=== PATIENT | female | born 1960 | race Two or more races ===

== ENCOUNTER 2020-10-30 12:41 | Outpatient (REF) | payer OTHER, SELFPAY ==
--- NOTE | ~2020-10-30 | MM_ITS ---
EXAMINATION: MM SCREENING DIGITAL BREAST TOMOSYNTHESIS, BILATERAL CLINICAL INFORMATION: Screening. Asymptomatic. The lifetime risk of breast cancer based on the Tyrer-Cuzick Model is 4.6%. COMPARISON: Mammography: March 29, 2019 and studies dating back to November 19, 2011 TECHNIQUE: Digital breast tomosynthesis is performed in both the craniocaudal and mediolateral oblique views along with computer-aided detection (CAD). Synthesized 2D images are generated from the tomosynthesis. FINDINGS: There are scattered areas of fibroglandular density (ACR BI-RADS breast composition Category b). There are no significant masses, abnormal calcifications, or other abnormalities. Intramammary lymph nodes again seen. MM/MM tomosynthesis screening BI IMPRESSION: There are no significant changes from prior study. ASSESSMENT: BI-RADS 1: Negative RECOMMENDATION: Routine annual mammography screening. This patient's information was entered into a reminder system with a target due date for their next mammogram.
== END 2020-10-30 12:42 | disposition home or self-care (01) ==
LOC: HO.MAMMO 12:41
PROVIDERS: Visit Provider Internal Medicine
DX: Z12.31 Encounter for screening mammogram for malignant neoplasm of breast (principal)
CPT/HCPCS: 77063; 77067

== ENCOUNTER 2021-02-24 08:13 | Outpatient (REF) | payer OTHER, SELFPAY ==
[2021-02-24 08:44] LABS: MANUAL DIFF FLAG NO
[2021-02-24 09:04] LABS: Basophils Percent Auto 0.5 % (0-2); Eosinophils Absolute Auto 0.1 X10*3/uL (0.0-0.4); Eosinophils Percent Auto 2.2 % (0-4); Hematocrit 39.6 % (37-47); Hemoglobin 12.6 g/dl (12.0-16.0); Imm Gran Abs Auto 0.02 X10*3/uL (0.00-0.03); Imm Gran Pct Auto 0.3 % (0.0-0.4); Lymphocytes Absolute Auto 2.6 X10*3/uL (1.2-4.9); Lymphocytes Percent Auto 40.6 % (20-40); Mean Corpuscular HGB Conc 31.8 g/dl (31.0-35.0); Mean Corpuscular Hemoglobin 28.2 pg (27.0-33.0); Mean Corpuscular Volume 88.6 fL (80-98); Mean Platelet Volume 10.7 fL (9.4-12.3); Monocytes Absolute Auto 0.5 X10*3/uL (0.1-1.2); Monocytes Percent Auto 7.3 % (2-11); Neutrophils Absolute Auto 3.1 X10*3/uL (2.0-8.3); Neutrophils Percent Auto 49.1 % (45-73); Platelet Count 268 X10*3/uL (160-400); Red Blood Count 4.47 X10*6/uL (4.20-5.50); Red Cell Distribution Width 12.9 % (11.0-16.0); White Blood Count 6.4 X10*3/uL (4.8-10.8)
[2021-02-24 09:39] LABS: Alanine Aminotransferase 20 U/L (0-31); Albumin Level 4.1 g/dL (3.5-5.0); Alkaline Phosphatase 98 U/L (39-117); Anion Gap 12 (12-20); Aspartate Amino Transferase 23 U/L (5-31); Bilirubin Total 0.5 mg/dL (0.0-1.0); Blood Urea Nitrogen 10 mg/dL (9-16); Calcium 9.5 mg/dL (8.4-10.2); Carbon Dioxide 31 mmol/L (22-29); Chloride 106 mmol/L (96-108); Cholesterol 161 mg/dL; Estimated Glomerular Filt Rate > 60; Glucose Fasting 119 mg/dL (60-99); HDL Cholesterol 55 mg/dL; LDL Cholesterol Calculated 76 mg/dl; Potassium 4.1 mmol/L (3.3-5.1); Sodium 145 mmol/L (135-145); Total Protein 6.9 g/dL (6.5-8.0); Triglycerides 153 mg/dL
[2021-03-02 13:41] LABS: Vitamin D 25-OH, D2 <4 ng/mL; Vitamin D 25-OH, D3 37 ng/mL; Vitamin D 25-OH, Total 37 ng/mL (30-100)
== END 2021-02-24 08:14 | disposition home or self-care (01) ==
LOC: HO.LAB 08:13
PROVIDERS: PCP Internal Medicine; Visit Provider Internal Medicine
DX: E55.9 Vitamin D deficiency, unspecified (principal); D64.9 Anemia, unspecified; E66.9 Obesity, unspecified; E78.5 Hyperlipidemia, unspecified; I10 Essential (primary) hypertension
CPT/HCPCS: 36415; 80053; 80061; 82306; 84443; 85025

== ENCOUNTER 2021-04-23 12:28 | Outpatient (REF) | payer OTHER, SELFPAY ==
--- NOTE | ~2021-04-23 | MR_ITS ---
EXAMINATION: MR BRAIN WITHOUT CONTRAST CLINICAL INFORMATION: New persistent headache. COMPARISON: Brain MRI 07/14/2017. TECHNIQUE: Multiplanar, multisequence imaging of the brain was performed without intravenous contrast. FINDINGS: There is no acute infarction, mass, hemorrhage, or extra-axial collection. The ventricles, sulci, and basilar cisterns are normal in size and configuration. Mild patchy foci of T2/FLAIR hyperintensity are seen in the bilateral cerebral white matter, a nonspecific finding which is similar compared with 2018. The cerebellar tonsils are normally positioned above the foramen magnum. The flow voids of the major intracranial arteries appear intact. There is layering fluid within the left maxillary sinus and mild to moderate ethmoid, left frontal, and sphenoid sinus mucosal thickening. Mastoid air cells are clear. The orbital contents appear normal with bilateral lens replacements noted. MR/MR head/brain wo con IMPRESSION: No acute intracranial abnormality identified. No mass is seen. No significant changes compared with 2018. Paranasal sinus mucosal thickening with layering fluid could represent acute sinusitis in the appropriate clinical setting.
== END 2021-04-23 12:29 | disposition home or self-care (01) ==
LOC: HO.MRI 12:28
PROVIDERS: PCP Internal Medicine; Visit Provider Internal Medicine
DX: G44.52 New daily persistent headache (NDPH) (principal)
CPT/HCPCS: 70551

== ENCOUNTER 2021-11-09 10:02 | Outpatient (REF) | payer OTHER, SELFPAY ==
[2021-11-09 11:48] LABS: Alanine Aminotransferase 18 U/L (0-31); Albumin Level 4.1 g/dL (3.5-5.0); Alkaline Phosphatase 228 U/L (39-117); Anion Gap 15 (12-20); Aspartate Amino Transferase 26 U/L (5-31); Bilirubin Total 0.6 mg/dL (0.0-1.0); Blood Urea Nitrogen 23 mg/dL (9-16); Calcium 9.3 mg/dL (8.4-10.2); Carbon Dioxide 29 mmol/L (22-29); Chloride 100 mmol/L (96-108); Cholesterol 168 mg/dL; Estimated Glomerular Filt Rate > 60; Glucose Fasting 92 mg/dL (60-99); HDL Cholesterol 53 mg/dL; LDL Cholesterol Calculated 92 mg/dl; Potassium 4.6 mmol/L (3.3-5.1); Sodium 139 mmol/L (135-145); Total Protein 6.8 g/dL (6.5-8.0); Triglycerides 116 mg/dL
[2021-11-09 12:58] LABS: Creatinine Urine 26.62 mg/dL; Microalbumin Urine < 5.0 mg/L
[2021-11-13 15:02] LABS: Vitamin D 25-OH, D2 <4 ng/mL; Vitamin D 25-OH, D3 20 ng/mL; Vitamin D 25-OH, Total 20 ng/mL (30-100)
== END 2021-11-09 10:03 | disposition home or self-care (01) ==
LOC: HO.LAB 10:02
PROVIDERS: PCP Internal Medicine; Visit Provider Internal Medicine
DX: E55.9 Vitamin D deficiency, unspecified (principal); E11.9 Type 2 diabetes mellitus without complications; E78.5 Hyperlipidemia, unspecified
CPT/HCPCS: 36415; 80053; 80061; 82043; 82306

== ENCOUNTER 2022-02-18 10:28 | Outpatient (REF) | payer OTHER, SELFPAY ==
--- NOTE | ~2022-02-18 | MM_ITS ---
EXAMINATION: MM SCREENING DIGITAL BREAST TOMOSYNTHESIS, BILATERAL CLINICAL INFORMATION: Screening. Asymptomatic. The lifetime risk of breast cancer based on the Tyrer-Cuzick Model is 4%. COMPARISON: Mammography: 10/30/2020, 03/29/2019 TECHNIQUE: Digital breast tomosynthesis is performed in both the craniocaudal and mediolateral oblique views along with computer-aided detection (CAD). Synthesized 2D images are generated from the tomosynthesis. FINDINGS: There are scattered areas of fibroglandular density (ACR BI-RADS breast composition Category b). Parenchymal pattern is similar to the prior studies. There is no interval mass or developing density. No architectural abnormality. Right breast again shows incidental low right axillary tail node and left breast has a probable intramammary nodes central lower breast stable since 2019. There are no abnormal calcifications. The axilla and skin contours are unremarkable. MM/MM tomosynthesis screening BI IMPRESSION: No significant changes from prior studies. ASSESSMENT: BI-RADS 2: Benign RECOMMENDATION: Routine annual mammography screening. This patient's information was entered into a reminder system with a target due date for their next mammogram.
== END 2022-02-18 10:29 | disposition home or self-care (01) ==
LOC: HO.MAMMO 10:28
PROVIDERS: PCP Internal Medicine; Visit Provider Internal Medicine
DX: Z12.31 Encounter for screening mammogram for malignant neoplasm of breast (principal)
CPT/HCPCS: 77063; 77067

== ENCOUNTER 2023-01-06 12:40 | Outpatient (AMB) | payer OTHER, SELFPAY ==
[2023-01-06 12:58] VITALS: BP 102/68; PULSE 78; O2SAT 96; BMI 33.1
--- NOTE | 2023-01-06 13:32 | MHC.PC.OV ---
Vital Signs 01/06/23 12:58 Height 5 ft 2 in Weight 181 lb 1 oz BMI 33.1 BP 102/68 Blood Pressure Location Lt brachial Position Sitting Pulse 78 Pulse Source Pulse Oximeter Pulse Oximetry (%) 96 Oxygen Delivery Method Room Air Intake Visit Reasons: headaches due to a fall back 12/04 Intake Note: Pt is here for persistent headaches due to a fall back in 12/04/22. 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: No Accompanied by: Self / Same As Patient Allergies gabapentin Allergy (Intermediate, Verified 01/06/23 14:01) syncope metformin Allergy (Intermediate, Verified 01/06/23 14:01) diarrhea, headache, vomiting morphine [MORPHINE] Allergy (Intermediate, Verified 01/06/23 14:01) ITCH, pruritus lactose [Lactose] Adverse Reaction (Intermediate, Verified 01/06/23 14:01) GAS,DIARRHEA Environmental Allergy (Intermediate, Uncoded 01/06/23 14:01) SNEEZING, ITCY EYES Condoms Latex Lubricated Allergy (Mild, Uncoded 01/06/23 14:01) rash Medication List - Last Reconciled 01/06/23 by Porsche Muro MD albuterol sulfate 2.5 mg (3 mL) inhalation Q6H PRN 30 days atorvastatin 80 mg PO BEDTIME 90 days cholecalciferol (vitamin D3) 25 mcg PO DAILY 90 days clonazepam 0.5 mg PO DAILY PRN diphenhydramine HCl (Benadryl Allergy) 25 mg PO BID PRN epinephrine (EpiPen) 0.3 mg (0.3 mL) IM Q4H PRN 30 days fluticasone propionate 50 mcg/actuation 1 spray intranasal DAILY 30 days hydrochlorothiazide 25 mg PO DAILY 90 days ketotifen fumarate 0.025%(0.035%) (Eye Itch Relief) 1 drp ophthalmic (eye) BID 7 days lisinopril 40 mg PO DAILY 90 days meclizine 25 mg PO DAILY PRN 30 days montelukast 10 mg PO DAILY 90 days nebulizers (AeroEclipse II Nebulizer) As directed omega 2-fml-ued-fish oil 1,000 mg (120 mg-180 mg) (Fish Oil) 1 cap PO DAILY omeprazole 20 mg PO DAILY 90 days Shower Chair As directed Ventolin HFA 90 mcg/actuation (albuterol sulfate) 2 puffs PO Q6H PRN NS ziprasidone HCl 20 mg PO BID Tobacco use date assessed: 05/27/22 Dental Screening Dental Screen Date: 01/06/23 Did you have a dental visit in the last 12 months?: No Did you have a dental problem in the last 6 months where you did not have access to dental care?: No Was dental information given to patient?: Patient has dentist HPI HPI Comments History of Present Illness Details This is a 62-year-old female with hypertension and dyslipidemia that comes today after head injury that happened about a month ago when she was in a staircase and she sleep and fall backwards hitting her head, neck, thoracic and lumbar spine. She had more pain the 1st week but still hurts. Blood pressure stable. Lipid panel was ordered. PFSH Medical History Depression with anxiety Dyslipidemia Essential hypertension Impaired glucose tolerance Insomnia Mild asthma New daily persistent headache Obese Smoker Surgical History H/O cataract extraction History of History of colon cancer History of left knee surgery History of tubal ligation Family History Mother Hypertension Father Hypertension Brother Colon cancer Family/Other Substance use disorder Mental health disorder Social History Housing: Apartment Alcohol intake: current Alcohol intake frequency: a few times a month Alcohol type: beer Patient Tobacco Use Status: Current someday Tobacco user Tobacco use type: Cigarette Cigarettes Per Day: 2 e-Cigarette/Vaping Use: Never Used Second Hand Smoke Exposure: No service: No Current occupational status: disabled Current occupational exposures/hazards: No Cognitive needs: No Hearing needs: No Vision needs: Yes Questionnaire Thrive Questionnaire Date Thrive assessed: 05/27/22 FRANCISCO-7 AMB Questionnaire FRANCISCO-7 Date FRANCISCO - 7 assessed: 05/27/22 Source: Developed by Drs. Jj Smart, Wendi Rivera, Demian Gallego and colleagues, with an educational keila from [employer] Review of Systems Const All systems reviewed & are unremarkable except as noted in HPI and below Reports headache(s) Eyes Reports no additional complaints, Denies change in vision and Denies other visual disturbances ENT Reports headache(s) Card Denies chest pain at rest, Denies chest pain with activity, Denies edema, Denies irregular heart rhythm, Denies claudication, Denies dyspnea, Denies dyspnea on exertion, Denies orthopnea, Denies paroxysmal nocturnal dyspnea and Denies slow heart rate Resp Denies cough, Denies dyspnea and Denies dyspnea on exertion GI Denies abdominal pain, Denies change in bowel habits, Denies excessive flatus, Denies nausea and Denies vomiting Denies urinary incontinence, Denies urinary hesitancy and Denies urinary urgency Musc Denies abnormal gait, Reports back pain, Denies atrophy, Denies deformity, Reports arthralgias and Denies limited range of motion Skin/Breast Denies bleeding lesions, Denies changing lesions and Denies rash Neuro Denies abnormal gait, Reports headache(s) and Denies lack of coordination Physical exam (Primary Care) Vital Signs: Last Vital Signs Pulse 78 01/06/23 12:58 BP 102/68 01/06/23 12:58 Pulse Ox 96 01/06/23 12:58 Oxygen Delivery Method Room Air 01/06/23 12:58 BMI result Body Mass Index 33.1 Tobacco/Smoking Status: Tobacco use Status Tobacco use date assessed 05/27/22 01/06/23 13:33 Patient Tobacco Use Status Current someday Tobacco 01/06/23 13:33 Tobacco use type Cigarette 01/06/23 13:33 e-Cigarette/Vaping Use Never Used 01/06/23 13:33 Thrive Assessment: Date of Thrive Assessment Date Thrive assessed 05/27/22 01/06/23 13:33 Eyes General: appearance normal, both eyes and all related structures Eyelids: Yes eyelids normal Conjunctivae: conjunctivae normal Neck Neck: Yes normal visual inspection and Yes supple Resp Effort & Inspection: normal respiratory effort Auscultation: clear to auscultation bilaterally Cardio Jugular venous distension: no JVD Rate: regular rate Rhythm: regular rhythm Heart sounds: S1 normal heart sound present and S2 normal heart sound present Extrem General: Yes full ROM Assessment and Plan Assessment & Plan (1) Head injury: Code(s): S09.90XA - Unspecified injury of head, initial encounter Plan: MRI of the head ordered. (2) Thoracic spine pain: Code(s): M54.6 - Pain in thoracic spine Plan: X-ray ordered (3) Lumbar pain: Code(s): M54.50 - Low back pain, unspecified Plan: X-ray ordered. (4) Neck pain: Code(s): M54.2 - Cervicalgia Plan: X-ray ordered. (5) Essential hypertension: Code(s): I10 - Essential (primary) hypertension Plan: Continue hydrochlorothiazide. Blood pressure goal is equal or less than 130/80. (6) Dyslipidemia: Code(s): E78.5 - Hyperlipidemia, unspecified Plan: Continue statins. Repeat lipid panel. Orders: Orders MR head/brain wo con Today S09.90XA - Unspecified injury of head, initial encounter XR cervical spine 2V Today M54.2 - Cervicalgia XR lumbar spine 2-3V Today M54.50 - Low back pain, unspecified XR thoracic spine 2V Today M54.6 - Pain in thoracic spine Comprehensive [place]. Panel Fast Today I10 - Essential (primary) hypertension Lipid Panel Today E78.5 - Hyperlipidemia, unspecified, I10 - Essential (primary) hypertension Vitamin D 25-OH Total Today E55.9 - Vitamin D deficiency, unspecified Coding Level of Care Code Est Pt Level 4 (51642) Diagnoses Head injury S09.90XA Thoracic spine pain M54.6 Lumbar pain M54.50 Neck pain M54.2 Essential hypertension I10 Dyslipidemia E78.5 Time Spent (min) 23
== END 2023-01-06 14:11 | disposition home or self-care (01) ==
PROVIDERS: PCP Internal Medicine; Visit Provider Internal Medicine
DX: S09.90XA Unspecified injury of head, initial encounter (principal); M54.6 Pain in thoracic spine; M54.50 Low back pain, unspecified; I10 Essential (primary) hypertension; M54.2 Cervicalgia; E78.5 Hyperlipidemia, unspecified
CPT/HCPCS: 99214

== ENCOUNTER 2023-01-26 10:39 | Outpatient (REF) | payer OTHER, SELFPAY ==
--- NOTE | ~2023-01-26 | XR_ITS ---
EXAMINATION: CERVICAL, THORACIC AND LUMBAR SPINE. CLINICAL INDICATION: Pain in thoracic spine. COMPARISON: Lumbar spine 12/19/2019. TECHNIQUE: Cervical spine 5 views, thoracic spine 2 views and lumbar spine 3 views. FINDINGS: CERVICAL SPINE: The there is mild straightening of cervical lordosis. There is loss of C5-C6 disc height with ventral and posterior spondylosis. Rest the disc heights are preserved. The vertebral heights and alignment are normal. The craniovertebral junction and the C1-C2 alignment are normal. There is no visible acute fracture, dislocation or subluxation. DORSAL SPINE: There is maintained thoracic kyphosis the vertebral heights, alignment and disc heights are normal. There is mild ventral spondylosis of the lower dorsal spine. The paravertebral soft tissues are normal. LUMBAR SPINE: There is normal lumbar lordosis. The vertebral heights, alignment and disc heights are normal. There is no visible acute fracture, dislocation or lytic process. There is mild ventral spondylosis throughout the dorsal spine. The SI joints are symmetrical and normal. XR/XR cervical spine 2V IMPRESSION: 1. Degenerative disc changes C5-C6 disc level with ventral and posterior spondylosis. No visible acute fracture, dislocation or subluxation seen in the cervical spine. 2. Mild ventral spondylosis in the lower dorsal spine. No visible acute fracture, dislocation or lytic process seen. 3. Unremarkable lumbar spine exam except for mild ventral spondylosis lower dorsal spine.
--- NOTE | ~2023-01-26 | XR_ITS ---
EXAMINATION: CERVICAL, THORACIC AND LUMBAR SPINE. CLINICAL INDICATION: Pain in thoracic spine. COMPARISON: Lumbar spine 12/19/2019. TECHNIQUE: Cervical spine 5 views, thoracic spine 2 views and lumbar spine 3 views. FINDINGS: CERVICAL SPINE: The there is mild straightening of cervical lordosis. There is loss of C5-C6 disc height with ventral and posterior spondylosis. Rest the disc heights are preserved. The vertebral heights and alignment are normal. The craniovertebral junction and the C1-C2 alignment are normal. There is no visible acute fracture, dislocation or subluxation. DORSAL SPINE: There is maintained thoracic kyphosis the vertebral heights, alignment and disc heights are normal. There is mild ventral spondylosis of the lower dorsal spine. The paravertebral soft tissues are normal. LUMBAR SPINE: There is normal lumbar lordosis. The vertebral heights, alignment and disc heights are normal. There is no visible acute fracture, dislocation or lytic process. There is mild ventral spondylosis throughout the dorsal spine. The SI joints are symmetrical and normal. XR/XR thoracic spine 2V IMPRESSION: 1. Degenerative disc changes C5-C6 disc level with ventral and posterior spondylosis. No visible acute fracture, dislocation or subluxation seen in the cervical spine. 2. Mild ventral spondylosis in the lower dorsal spine. No visible acute fracture, dislocation or lytic process seen. 3. Unremarkable lumbar spine exam except for mild ventral spondylosis lower dorsal spine.
--- NOTE | ~2023-01-26 | XR_ITS ---
EXAMINATION: CERVICAL, THORACIC AND LUMBAR SPINE. CLINICAL INDICATION: Pain in thoracic spine. COMPARISON: Lumbar spine 12/19/2019. TECHNIQUE: Cervical spine 5 views, thoracic spine 2 views and lumbar spine 3 views. FINDINGS: CERVICAL SPINE: The there is mild straightening of cervical lordosis. There is loss of C5-C6 disc height with ventral and posterior spondylosis. Rest the disc heights are preserved. The vertebral heights and alignment are normal. The craniovertebral junction and the C1-C2 alignment are normal. There is no visible acute fracture, dislocation or subluxation. DORSAL SPINE: There is maintained thoracic kyphosis the vertebral heights, alignment and disc heights are normal. There is mild ventral spondylosis of the lower dorsal spine. The paravertebral soft tissues are normal. LUMBAR SPINE: There is normal lumbar lordosis. The vertebral heights, alignment and disc heights are normal. There is no visible acute fracture, dislocation or lytic process. There is mild ventral spondylosis throughout the dorsal spine. The SI joints are symmetrical and normal. XR/XR lumbar spine 2-3V IMPRESSION: 1. Degenerative disc changes C5-C6 disc level with ventral and posterior spondylosis. No visible acute fracture, dislocation or subluxation seen in the cervical spine. 2. Mild ventral spondylosis in the lower dorsal spine. No visible acute fracture, dislocation or lytic process seen. 3. Unremarkable lumbar spine exam except for mild ventral spondylosis lower dorsal spine.
[2023-01-26 12:55] LABS: Alanine Aminotransferase 13 U/L (0-31); Albumin Level 4.2 g/dL (3.5-5.0); Alkaline Phosphatase 99 U/L (39-117); Anion Gap 10 (12-20); Aspartate Amino Transferase 24 U/L (5-31); Bilirubin Total 0.6 mg/dL (0.0-1.0); Blood Urea Nitrogen 11 mg/dL (9-16); Calcium 9.7 mg/dL (8.4-10.2); Carbon Dioxide 33 mmol/L (22-29); Chloride 105 mmol/L (96-108); Cholesterol 185 mg/dL (<200); Estimated Glomerular Filt Rate > 60; Glucose Fasting 108 mg/dL (60-99); HDL Cholesterol 62 mg/dL (>40); LDL Cholesterol Calculated 92 mg/dL (<100); Potassium 4.3 mmol/L (3.3-5.1); Sodium 144 mmol/L (135-145); Total Protein 7.3 g/dL (6.5-8.0); Triglycerides 155 mg/dL (<150)
[2023-01-26 13:11] LABS: Vitamin D 25-OH Total 41.3 ng/mL (>30)
== END 2023-01-26 10:40 | disposition home or self-care (01) ==
LOC: HO.XRAY 10:39
PROVIDERS: PCP Internal Medicine; Visit Provider Internal Medicine
DX: M54.6 Pain in thoracic spine (principal); M54.2 Cervicalgia; M54.50 Low back pain, unspecified; E55.9 Vitamin D deficiency, unspecified; I10 Essential (primary) hypertension; E78.5 Hyperlipidemia, unspecified
CPT/HCPCS: 36415; 72040; 72070; 72100; 80053; 80061; 82306

== ENCOUNTER 2023-02-22 09:17 | Outpatient (AMB) | payer OTHER, SELFPAY ==
[2023-02-22 09:19] VITALS: BP 110/70; BMI 33.1
--- NOTE | 2023-02-22 09:19 | MHC.OFFVIS ---
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[employer] Language: Favor Maker Name: Saranya EVANGELISTA Information Interpreted: non-clinical & clinical Accompanied by: Self / Same As Patient Allergies gabapentin Allergy (Intermediate, Verified 02/22/23 09:27) syncope metformin Allergy (Intermediate, Verified 02/22/23 09:27) diarrhea, headache, vomiting morphine [MORPHINE] Allergy (Intermediate, Verified 02/22/23 09:27) ITCH, pruritus lactose [Lactose] Adverse Reaction (Intermediate, Verified 02/22/23:) GAS,DIARRHEA Environmental Allergy (Intermediate, Uncoded 02/22/23:27) SNEEZING, ITCY EYES Condoms Latex Lubricated Allergy (Mild, Uncoded 02/22/23 09:) rash Post menopausal: Yes HPI HPI Comments History of Present Illness Details Presenting complaining of suprapubic/pelvic pressure associated with vulvovaginal irritation and urinary dysuria co no vaginal bleeding, no vaginal discharge or odor. Last co testing was in 2015 was negative Last mammogram was BI-RADS 2 in 02/11, the patient is scheduled for another screen mammogram in few weeks Last colonoscopy was in 2016, the recommendation was to repeat in 5 years [facility] Medical History New daily persistent headache Impaired glucose tolerance Insomnia Depression with anxiety Mild asthma Smoker Dyslipidemia Obese Essential hypertension Surgical History H/O cataract extraction History of left knee surgery History of tubal ligation History of colon cancer History of Family History Mother Hypertension Father Hypertension Brother Colon cancer Family/Other Substance use disorder Mental health disorder Social History Housing: Apartment Alcohol intake: current Alcohol intake frequency: a few times a month Alcohol type: beer Patient Tobacco Use Status: Current someday Tobacco user Tobacco use type: Cigarette Cigarettes Per Day: 2 e-Cigarette/Vaping Use: Never Used Second Hand Smoke Exposure: No service: No Current occupational status: disabled Current occupational exposures/hazards: No Cognitive needs: No Hearing needs: No Vision needs: Yes Review of Systems Const All systems reviewed & are unremarkable except as noted in HPI and below Card Reports as per HPI Resp Reports as per HPI GI Reports as per HPI and Reports no additional complaints Reports as per HPI Physical Exam Vital Signs: Last Vital Signs BP 110/70 02/22/23 09:19 BMI result Body Mass Index 33.1 Const General: cooperative, healthy appearing and comfortable Chest Chest palpation & inspection: normal inspection of the chest and normal palpation of entire chest wall Breast/axilla inspection: normal inspection of the breasts and normal inspection of the axillae Breast/axilla palpation: normal palpation of the breasts, normal palpation of the axillae and no axillary lymphadenopathy Resp Effort & Inspection: normal respiratory effort Auscultation: clear to auscultation bilaterally Percussion: percussion normal Cardio Palpation: normal PMI Rate: regular rate Rhythm: regular rhythm Heart sounds: no murmurs and no rubs Peripheral pulses: Peripheral pulses 2+ throughout GI Inspection: Yes normal to inspection Palpation (GI): Soft to palpation, nontender, no guarding, not rigid and No hepatosplenomegaly present Percussion: Yes normal to percussion Auscultation: normal bowel sounds Rectal Exam - Female: deferred General: Yes bladder normal to palpation External Female Exam: No lesion Speculum Exam - Vagina: normal appearance of the vagina, normal palpation, normal vaginal discharge and not erythematous Speculum Exam - Cervix: normal appearance of the cervix and normal palpation Bimanual exam- vagina & uterus: normal bimanual exam, normal palpation, uterine size normal, bladder normal to palpation, consistency normal and normal palpation Bimanual Exam- Adnexa, other: normal adnexae, no masses and no tenderness Results AMB Urinalysis Dipstick UR Leukocytes Negative Last Edit by Saranya Kramer CMA on 02/22/23 09:41 UR Nitrite Negative Last Edit by Saranya Kramer CMA on 02/22/23 09:41 UR Urobilinogen Normal Last Edit by Saranya Kramer CMA on 02/22/23 09:41 UR Protein Negative Last Edit by Saranya Kramer CMA on 10/03/23 09:41 UR Ph 7.0 Last Edit by Saranya Kramer CMA on 02/22/23 09:41 UR Blood Negative Last Edit by Saranya Kramer CMA on 02/22/23 09:41 UR Specific [place] 1.010 Last Edit by Saranya Kramer CMA on 02/22/23 09:41 UR Ketone Negative Last Edit by Saranya Kramer CMA on 02/22/23 09:41 UR Bilirubin Negative Last Edit by Saranya Kramer CMA on 02/22/23 09:41 UR Glucose Negative Last Edit by Saranya Kramer CMA on 02/22/23 09:41 Assessment & Plan Assessment & Plan (1) Well woman exam: Code(s): Z01.419 - Encounter for gynecological examination (general) (routine) without abnormal findings Plan: Co testing done. Counseled the patient about the recommended dietary allowance of 1200 mg of Calcium & 600 IU of vitamin D. Mammogram scheduled in few. The patient was referred to GI for screening colonoscopy . The patient was instructed to perform monthly self-breast exams and schedule annual exam in a year. All questions answered and the patient verbalized understanding. (2) Pelvic pressure in female: Code(s): R10.2 - Pelvic and perineal pain Plan: Urine dip done in the office was negative, GC/CT and BV panel taken, will order pelvic ultrasound. Instructions given the patient to schedule a 2 week follow-up appointment Orders: Orders AMB Urinalysis Dipstick Today R35.0 - Frequency of micturition US pelvic and transvaginal Today R10.2 - Pelvic and perineal pain Referrals Gastroenterology Referral Z12.11 - Encounter for screening for malignant neoplasm of colon Coding Level of Care Code New Pt Prev Care 40-64y(71993) Diagnoses Well woman exam Z01.419 Pelvic pressure in female R10.2
== END 2023-02-22 09:45 | disposition home or self-care (01) ==
LOC: HO.HWS 09:17
PROVIDERS: PCP Internal Medicine; Visit Provider Obstetrics & Gynecology
DX: Z01.419 Encounter for gynecological examination (general) (routine) without abnormal findings (principal); R10.2 Pelvic and perineal pain; R35.0 Frequency of micturition
CPT/HCPCS: 99386

== ENCOUNTER 2023-02-22 09:17 | Outpatient (REF) | payer OTHER, SELFPAY ==
[2023-02-22 16:56] LABS: CT PCR NOT DETECTED (Not Detect.); NG PCR NOT DETECTED (Not Detect.)
[2023-02-23 13:34] LABS: BV Int Neg Control Negative (Negative); BV Int Pos Control Positive (Positive)
[2023-02-25 03:59] LABS: HPV mRNA E6/E7 rflx Not Detected (Not Detected)
== END 2023-02-22 09:18 | disposition home or self-care (01) ==
LOC: HO.LNP 09:17
PROVIDERS: PCP Internal Medicine; Visit Provider Obstetrics & Gynecology
DX: Z01.419 Encounter for gynecological examination (general) (routine) without abnormal findings (principal); R10.2 Pelvic and perineal pain; Z11.51 Encounter for screening for human papillomavirus (HPV)
CPT/HCPCS: 0353U; 81002; 87480; 87510; 87624; 87660; 88142; 99386

== ENCOUNTER 2023-03-04 10:28 | Outpatient (REF) | payer OTHER, SELFPAY ==
--- NOTE | ~2023-03-04 | MM_ITS ---
EXAMINATION: MM SCREENING DIGITAL BREAST TOMOSYNTHESIS, BILATERAL CLINICAL INFORMATION: Screening. Asymptomatic. COMPARISON: Mammography: This study is compared with prior exams dating back to 2018. TECHNIQUE: Digital breast tomosynthesis is performed in both the craniocaudal and mediolateral oblique views along with computer-aided detection (CAD). Synthesized 2D images are generated from the tomosynthesis. FINDINGS: There are scattered areas of fibroglandular density (ACR BI-RADS breast composition Category b). There is a focal asymmetry in the 9:00 region of the right breast at a middle depth. It warrants additional mammographic and targeted sonographic evaluation. In the left breast, there no are no significant masses, abnormal calcifications, or other abnormalities. MM/MM tomosynthesis screening BI IMPRESSION: Focal asymmetry of the 9:00 region of the right breast warrants additional mammographic and targeted sonographic imaging. No mammographic signs of malignancy left breast. ASSESSMENT: BI-RADS BI-RADS 0 - Incomplete: Needs additional Imaging. RECOMMENDATION: 1. Additional views of the right breast 2. Targeted ultrasound if warranted after review of the additional views. 3. Radiology department staff will contact the patient for additional imaging. Additional Imaging required This examination should not preclude the clinical evaluation of a suspicious palpable abnormality. This patient's information was entered into a reminder system with a target due date for their next mammogram.
== END 2023-03-04 10:29 | disposition home or self-care (01) ==
LOC: HO.MAMMO 10:28
PROVIDERS: PCP Internal Medicine; Visit Provider Internal Medicine
DX: Z12.31 Encounter for screening mammogram for malignant neoplasm of breast (principal)
CPT/HCPCS: 77063; 77067

== ENCOUNTER → 2023-03-04 11:00 | Outpatient (BNV) | payer OTHER, SELFPAY | PROVIDERS: PCP Internal Medicine; Visit Provider Radiology Diagnostic Radiology | DX: Z12.31 Encounter for screening mammogram for malignant neoplasm of breast (principal) | CPT/HCPCS: 77063; 77067 ==

== ENCOUNTER 2023-03-18 11:13 | Outpatient (REF) | payer OTHER, SELFPAY ==
--- NOTE | ~2023-03-18 | MR_ITS ---
EXAMINATION: MR BRAIN WITHOUT CONTRAST CLINICAL INFORMATION: Head injury. COMPARISON: Brain MRI from 04/23/2021. TECHNIQUE: MRI of the brain was obtained using routine sequences without contrast. FINDINGS: No focal restricted diffusion is demonstrated to suggest acute or subacute cerebral ischemia. No evidence of acute or chronic hemorrhagic products on heme-sensitive imaging. Scattered periventricular and deep white matter T2 FLAIR hyperintensities consistent with mild underlying microangiopathy. The ventricles are normal in morphology and size. No abnormal mass effect. No midline shift. Normal appearance of the pituitary gland. Normal positioning of the cerebellar tonsils. Normal arterial and venous vascular flow voids are present. Normal, homogeneous marrow signal. Moderate mucosal thickening of the paranasal sinuses. No signal abnormalities within the mastoids. Bilateral lens extractions. MR/MR head/brain wo con IMPRESSION: 1. No acute intracranial abnormalities. 2. Mild underlying microangiopathy.
== END 2023-03-18 11:14 | disposition home or self-care (01) ==
LOC: HO.MRI 11:13
PROVIDERS: PCP Internal Medicine; Visit Provider Internal Medicine
DX: S09.90XA Unspecified injury of head, initial encounter (principal)
CPT/HCPCS: 70551

== ENCOUNTER 2023-03-23 12:49 | Outpatient (REF) | payer OTHER, SELFPAY ==
--- NOTE | ~2023-03-23 | US_ITS ---
EXAMINATION: US PELVIS COMPLETE US PELVIS ENDOVAGINAL CLINICAL INFORMATION: Pelvic peritoneal pain COMPARISON: None. TECHNIQUE: Transabdominal and transvaginal images of the pelvis were obtained. FINDINGS: UTERUS: Anteverted. Normal size and contour, measuring 8.4 x 3.0 x 4.4 cm (cervix to fundus x AP x transverse). Uniform, homogeneous endometrium measures 0.4 cm in width. Hyperechoic lobulated focus noted along the cervix avascular measuring 1.9 x 1.3 x 1.4. RIGHT OVARY: Normal size and echogenicity measuring 1.9 x 1.4 x 1.2 cm, volume 1.7 mL. Cystic focus noted in the right ovary measuring 4 mm. LEFT OVARY: Normal size and echogenicity measuring 1.6 x 0.8 x 1.5 cm, volume 1.0 mL. FREE FLUID: No pelvic free fluid. Incidental note is made of trabeculated bladder wall suggesting elements of bladder outlet obstruction. US/US pelvic and transvaginal IMPRESSION: 1. Hyperechoic lobulated focus noted along the cervix avascular measuring 1.9 x 1.3 x 1.4 cm. Consider further evaluation with direct visualization/colposcopy. 2. Cystic focus noted in the right ovary measuring 4 mm, not requiring follow-up 3. Incidental note is made of trabeculated bladder wall suggesting elements of bladder outlet obstruction.
== END 2023-03-23 12:50 | disposition home or self-care (01) ==
LOC: HO.US 12:49
PROVIDERS: PCP Internal Medicine; Visit Provider Obstetrics & Gynecology
DX: R10.2 Pelvic and perineal pain (principal)
CPT/HCPCS: 76830; 76856

== ENCOUNTER 2023-04-04 11:20 | Outpatient (AMB) | payer OTHER, SELFPAY ==
--- NOTE | 2023-04-04 11:54 | A.OFFVIS_ITS ---
Intake Vital Signs 04/04/23 11:56 Height 5 ft 2 in Weight 183 lb BMI 33.5 BP 140/84 H Blood Pressure Location Lt brachial Position Sitting Pulse 79 Intake Visit Reasons: Colonoscopy Screening Intake Note: Patient new consult for 4th pre colonoscopy screening. Patient cc: acid reflex, and diarrhea. Denies any other GI issues. Voice Instructor Required: Yes Voice Instructor Name: Sarah [email or web address] Accompanied by: Self / Same As Patient Allergies gabapentin Allergy (Intermediate, Verified 04/04/23 11:54) syncope metformin Allergy (Intermediate, Verified 04/04/23 11:54) diarrhea, headache, vomiting morphine [MORPHINE] Allergy (Intermediate, Verified 04/04/23 11:54) ITCH, pruritus lactose [Lactose] Adverse Reaction (Intermediate, Verified 04/04/23 11:54) GAS,DIARRHEA Environmental Allergy (Intermediate, Uncoded 02/22/23 09:27) SNEEZING, ITCY EYES Condoms Latex Lubricated Allergy (Mild, Uncoded 02/22/23 09:27) rash Medication List - Last Reconciled 04/04/23 by Alexandra Meredith PA-C albuterol sulfate 2.5 mg (3 mL) inhalation Q6H PRN 30 days atorvastatin 80 mg PO BEDTIME 90 days bisacodyl (Dulcolax (bisacodyl)) 20 mg (4 x 5 mg) PO ONCE 1 day cholecalciferol (vitamin D3) 25 mcg PO DAILY 90 days clonazepam 0.5 mg PO DAILY PRN epinephrine (EpiPen) 0.3 mg (0.3 mL) IM Q4H PRN 30 days fluticasone propionate 50 mcg/actuation 1 spray intranasal DAILY 30 days hydrochlorothiazide 25 mg PO DAILY 90 days ketotifen fumarate 0.025%(0.035%) (Eye Itch Relief) 1 drp ophthalmic (eye) BID 7 days lisinopril 40 mg PO DAILY 90 days meclizine 25 mg PO DAILY PRN 30 days montelukast 10 mg PO DAILY 90 days nebulizers (AeroEclipse II Nebulizer) As directed omega 6-wth-[id number]-fish oil 1,000 mg (120 mg-180 mg) (Fish Oil) 1 cap PO DAILY omeprazole 20 mg PO DAILY 90 days polyethylene glycol 3350 (Miralax) 238 grams PO ONCE PRN 1 day Shower Chair As directed Ventolin HFA 90 mcg/actuation (albuterol sulfate) 2 puffs PO Q6H PRN NS ziprasidone HCl 20 mg PO BID HPI HPI Comments History of Present Illness Details A 62 y/o female hx rectal carcinoid tumor-last colonoscopy 2018- multiple polyps Acid reflux - prilosec- She has a normal bowel pattern Good appetite PFSH Medical History New daily persistent headache Impaired glucose tolerance Insomnia Depression with anxiety Mild asthma Smoker Dyslipidemia Obese Essential hypertension Surgical History H/O cataract extraction History of left knee surgery History of tubal ligation History of colon cancer History of Family History Mother Hypertension Father Hypertension Brother Colon cancer Family/Other Substance use disorder Mental health disorder Social History Housing: Apartment Alcohol intake: current Alcohol intake frequency: a few times a month Alcohol type: beer Patient Tobacco Use Status: Current someday Tobacco user Tobacco use type: Cigarette Cigarettes Per Day: 2 e-Cigarette/Vaping Use: Never Used Second Hand Smoke Exposure: No service: No Current occupational status: disabled Current occupational exposures/hazards: No Cognitive needs: No Hearing needs: No Vision needs: Yes Review of Systems Const All systems reviewed & are unremarkable except as noted in HPI and below Denies chills, Denies fever(s) and Denies weight loss Card Denies chest pain GI Denies abdominal pain, Denies hematochezia, Denies change in bowel habits, Reports heartburn, Denies nausea and Denies vomiting Physical Exam Vital Signs: Last Vital Signs Pulse 79 04/04/23 11:56 BP 140/84 H 04/04/23 11:56 BMI result Body Mass Index 33.5 Const General: cooperative, healthy appearing, comfortable and no acute distress Orientation/consciousness: patient oriented x3 Limitations: language barrier Eyes Sclerae: sclerae normal Resp Effort & Inspection: normal respiratory effort and able to speak in complete sentences Auscultation: clear to auscultation bilaterally, no rales, no rhonchi and no wheezes Cardio Rate: regular rate Rhythm: regular rhythm Heart sounds: S1 normal heart sound present and S2 normal heart sound present GI Palpation (GI): Soft to palpation and nontender Auscultation: normal bowel sounds Skin General skin exam: no rashes or lesions noted Neuro General: patient oriented x3 Extrem General: Yes full ROM Psych Appearance: grossly normal Mental Status: mental status grossly normal Speech and movement: Normal speech and movement present Affect: normal affect Attitude: cooperative Thought process: Normal thought process present Thought content: Normal thought content present Results Reviewed Results Reviewed: colonoscopy/ path reviewed from 2019- no adenoma- Assessment & Plan Assessment & Plan (1) History of benign carcinoid tumor: Comment: rectal carcinoid- 2009 Code(s): Z86.012 - Personal history of benign carcinoid tumor (2) Acid reflux: Comment: Dietary modification attempt Code(s): K21.9 - Gastro-esophageal reflux disease without esophagitis Plan: cont.ppi avoid culprits EGD (3) History of colon polyps: Comment: Colonoscopy, discussed procedure, rare risks, need for escorted due to anesthesia Code(s): Z86.010 - Personal history of colonic polyps Plan Esteban- EGD/ colon Hx carcinoid- rectal MG prep 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 238 grams PO ONCE PRN 238 grams 0RF laxative effect 1 day bisacodyl (Dulcolax (bisacodyl)) Day before procedure, prep day Take 4 tablets by mouth upon awakening followed by large glass of water 20 mg (4 x 5 mg) PO ONCE 4 tabs 0RF colonoscopy prep 1 day Z12.11 - Encounter for screening for malignant neoplasm of colon Patient Instructions: EGD/ colon- Dr. Mcmanus- MG- Needs platen drier operator Reflux precautions reviewed Avoid culprits Continue PPI Encouraged to call questions or concerns Appreciate the opportunity assist in care the Coding Level of Care Code New Pt Level 3 (39602) Diagnoses History of benign carcinoid tumor Z86.012 Acid reflux K21.9 History of colon polyps Z86.010 Time Spent (min) 30
[2023-04-04 11:56] VITALS: BP 140/84; PULSE 79; BMI 33.5
== END 2023-04-04 13:44 | disposition home or self-care (01) ==
PROVIDERS: PCP Internal Medicine; Visit Provider Physician Assistant
DX: Z86.012 Personal history of benign carcinoid tumor (principal); K21.9 Gastro-esophageal reflux disease without esophagitis; Z86.010 Personal history of colon polyps
CPT/HCPCS: 99203

== ENCOUNTER → 2023-04-04 11:20 | Outpatient (BNVA) | payer OTHER, SELFPAY | PROVIDERS: PCP Internal Medicine; Visit Provider Physician Assistant | DX: K21.9 Gastro-esophageal reflux disease without esophagitis (principal); Z86.012 Personal history of benign carcinoid tumor; Z86.010 Personal history of colon polyps | CPT/HCPCS: 99202 ==

== ENCOUNTER 2023-04-06 12:43 | Outpatient (REF) | payer OTHER, SELFPAY ==
--- NOTE | ~2023-04-06 | US_ITS ---
EXAMINATION: MM DIAGNOSTIC DIGITAL BREAST TOMOSYNTHESIS, RIGHT US BREAST LIMITED, RIGHT MAMMOGRAPHY: CLINICAL INFORMATION: Patient seen for evaluation of a right breast focal asymmetry is noted on screening mammography from March 04 2023. COMPARISON: Mammography: This study is compared with prior mammograms dating back to . TECHNIQUE: Digital breast tomosynthesis is performed in both the craniocaudal and mediolateral oblique views along with computer-aided detection (CAD). Synthesized 2D images are generated from the tomosynthesis. CC and MLO spot compression of the right breast and a full lateral view of the right breast was performed. FINDINGS: There are scattered areas of fibroglandular density (ACR BI-RADS breast composition Category b). Additional mammographic imaging of the focal asymmetry in the 7:00 to 9:00 location shows a pliable, ellipsoid structure associated with a single, subcentimeter punctate benign calcification. There are no mammographic signs of malignancy. ULTRASOUND: CLINICAL INFORMATION: Focal asymmetry of the right breast evaluation COMPARISON: None TECHNIQUE: Targeted sonographic evaluation was performed using a high frequency linear transducer. Selected archived documentation. FINDINGS: RIGHT BREAST: Sonography of the 40 8:00 region of the right breast was performed. In the 7:00 location, there is a 3 mm x 2 mm x 1 mm oval cyst with a solitary nonshadowing calcification associated with it. This structure is benign and corresponds to the mammographic finding.. US/US breast RT limited mamm only IMPRESSION: No mammographic signs of malignancy. OVERALL ASSESSMENT: Mammography: BI-RADS 2 - Benign Findings Ultrasound: BI-RADS 2 - Benign Findings RECOMMENDATION: 1 year F/U Results were provided to the patient at time of visit by the technologist. This patient's information was entered into a reminder system with a target due date for their next mammogram.
== END 2023-04-06 12:44 | disposition home or self-care (01) ==
LOC: HO.MAMMO 12:43
PROVIDERS: PCP Internal Medicine; Visit Provider Internal Medicine
DX: N64.89 Other specified disorders of breast (principal)
CPT/HCPCS: 76642; 77061; 77065

== ENCOUNTER → 2023-04-06 13:30 | Outpatient (BNV) | payer OTHER, SELFPAY | PROVIDERS: PCP Internal Medicine; Visit Provider Radiology Diagnostic Radiology | DX: R92.8 Other abnormal and inconclusive findings on diagnostic imaging of breast (principal) | CPT/HCPCS: 76642; 77061; 77065 ==

== ENCOUNTER 2023-04-07 11:32 | Outpatient (REF) | payer OTHER, SELFPAY ==
[2023-04-08 10:13] LABS: CA-125 10 U/mL (<35)
== END 2023-04-07 11:33 | disposition home or self-care (01) ==
LOC: HO.LAB 11:32
PROVIDERS: PCP Internal Medicine; Visit Provider Obstetrics & Gynecology
DX: N83.299 Other ovarian cyst, unspecified side (principal); N88.9 Noninflammatory disorder of cervix uteri, unspecified; R93.41 Abnormal radiologic findings on diagnostic imaging of renal pelvis, ureter, or bladder; R93.5 Abnormal findings on diagnostic imaging of other abdominal regions, including retroperitoneum
CPT/HCPCS: 36415; 86304; 99212

== ENCOUNTER 2023-04-07 11:32 | Outpatient (AMB) | payer OTHER, SELFPAY ==
--- NOTE | 2023-04-07 12:00 | A.OFFVIS_ITS ---
Intake Vital Signs 04/07/23 12:02 Height 5 ft 2 in Weight 182 lb 15.739 oz BMI 33.5 BP 98/62 Intake Visit Reasons: Ultrasound Results Teletypesetter Operator Required: Yes Teletypesetter Operator Language: Electronics Engineering Technologist Name: Saranya EVANGELISTA Information Interpreted: non-clinical & clinical Accompanied by: Self / Same As Patient Allergies gabapentin Allergy (Intermediate, Verified 04/07/23 12:03) syncope metformin Allergy (Intermediate, Verified 04/07/23 12:03) diarrhea, headache, vomiting morphine [MORPHINE] Allergy (Intermediate, Verified 04/07/23 12:03) ITCH, pruritus lactose [Lactose] Adverse Reaction (Intermediate, Verified 04/07/23 12:03) GAS,DIARRHEA Environmental Allergy (Intermediate, Uncoded 04/07/23 12:03) SNEEZING, ITCY EYES Condoms Latex Lubricated Allergy (Mild, Uncoded 04/07/23 12:03) rash Post menopausal: Yes HPI HPI Comments History of Present Illness Details Presenting for ultrasound follow-up. Regarding pelvic pressure. Urine dip done in the office last visit was negative. GC/CT were negative. Pelvic Ultrasound showed the followin. Hyperechoic lobulated focus noted along the cervix avascular measuring 1.9 x 1.3 x 1.4 cm. Consider further evaluation with direct visualization/colposcopy. 2. Cystic focus noted in the right ovar y measuring 4 mm, not requiring follow-up 3. Incidental note is made of trabecula gomez bladder wall suggesting elements of bladder outlet obstruction. PFSH Medical History New daily persistent headache Impaired glucose tolerance Insomnia Depression with anxiety Mild asthma Smoker Dyslipidemia Obese Essential hypertension Surgical History H/O cataract extraction History of left knee surgery History of tubal ligation History of colon cancer History of Family History Mother Hypertension Father Hypertension Brother Colon cancer Family/Other Substance use disorder Mental health disorder Social History Housing: Apartment Alcohol intake: current Alcohol intake frequency: a few times a month Alcohol type: beer Patient Tobacco Use Status: Current someday Tobacco user Tobacco use type: Cigarette Cigarettes Per Day: 2 e-Cigarette/Vaping Use: Never Used Second Hand Smoke Exposure: No service: No Current occupational status: disabled Current occupational exposures/hazards: No Cognitive needs: No Hearing needs: No Vision needs: Yes Review of Systems Const All systems reviewed & are unremarkable except as noted in HPI and below Physical Exam Vital Signs: Last Vital Signs BP 98/62 04/07/23 12:02 BMI result Body Mass Index 33.5 General: Yes no CVA tenderness External Female Exam: normal external appearance and normal appearance of the urethra Speculum Exam - Vagina: normal appearance of the vagina, normal palpation, no lesions and no masses Speculum Exam - Cervix: normal appearance of the cervix, normal palpation, no lesions, no masses and nontender Bimanual exam- vagina & uterus: normal bimanual exam, normal palpation, uterine size normal, normal palpation, uterine shape normal, No Cervical tenderness present and non-tender Bimanual Exam- Adnexa, other: normal adnexae Back/Spine/Pelvis Back: no CVA tenderness Assessment & Plan Assessment & Plan (1) Cervical lesion: Comment: On ultrasound Code(s): N88.9 - Noninflammatory disorder of cervix uteri, unspecified Plan: Discussed with the patient the finding on pelvic exam showing normal cervix and no evidence of abnormality, the patient was reassured, or questions answered, the patient verbalized understanding. (2) Abnormal ultrasound of bladder: Code(s): R93.41 - Abnormal radiologic findings on diagnostic imaging of renal pelvis, ureter, or bladder Plan: Discussed with the patient the finding on ultrasound showing trabeculated bladder wall suggesting elements of bladder outlet obstruction will refer to Urology for further manage (3) Abnormal ultrasound of ovary: Comment: 4 mm focus by ultrasound Code(s): R93.5 - Abnormal findings on diagnostic imaging of other abdominal regions, including retroperitoneum Plan: Discussed with the patient the complex ovarian cyst by ultrasound. Discussed with the patient the Ultrasound findings, the main limitation of transvaginal ultrasonography alone as a diagnostic tool to distinguish benign from malignant masses relates to its lack of specificity and low positive predictive value for cancer. The differential diagnosis discussed with the patient includes the following but not limited to: benign and malignant gynecological and non-gynecological causes. Discussed with the patient that CA 125 is a protein associated with epithelial ovarian malignancies, but also frequently expressed at lower levels by nonmalignant tissue. Elevation of CA 125 levels may occur in nonmalignant gynecologic conditions, and in non-gynecologic cancers, It is most useful in postmenopausal women and in identifying non mucinous epithelial cancer. The CA 125 level is elevated in 80% of patients with epithelial ovarian cancer but in only 50% of patients with stage I disease. The overall sensitivity of CA 125 testing in distinguishing benign from malignant adnexal masses reportedly ranges from 61% to 90%; discussed with the patient the specificity, positive predictive value and negative predictive value. Discussed with the patient options of treatment , in case CA 125 is not el evated, including laparoscopy ovarian cystectomy/oophorectomy vs. expectant management with repeat US in repeating pelvic US in 12 weeks from previous US. If the 4 mm ovarian focus is larger and / or more complex looking, or higher CA 125 will refer to gynecologic Oncology. All pros, cons, risks and benefits of each approach were discussed with the patient including but not limited to a delay in the diagnosis and treatment of ovarian cancer affecting the prognosis; The patient decided to go ahead with expectant management. Instructions given the patient to schedule a 3 months follow-up ultrasound appointment. All questions were answered & the patient verbalized understanding and agreed with the plan. Orders: Orders US pelvic and transvaginal 3 Months N83.299 - Other ovarian cyst, unspecified side CA-125 Today N83.299 - Other ovarian cyst, unspecified side Referrals Urology Referral R93.41 - Abnormal radiologic findings on diagnostic imaging of renal pelvis, ureter, or bladder Coding Level of Care Code Est Pt Level 3 (77818) Diagnoses Cervical lesion N88.9 Abnormal ultrasound of bladder R93.41 Abnormal ultrasound of ovary R93.5
[2023-04-07 12:02] VITALS: BP 98/62; BMI 33.5
== END 2023-04-07 12:52 | disposition home or self-care (01) ==
PROVIDERS: PCP Internal Medicine; Visit Provider Obstetrics & Gynecology
DX: N88.9 Noninflammatory disorder of cervix uteri, unspecified (principal); R93.41 Abnormal radiologic findings on diagnostic imaging of renal pelvis, ureter, or bladder; R93.5 Abnormal findings on diagnostic imaging of other abdominal regions, including retroperitoneum
CPT/HCPCS: 99213

== ENCOUNTER 2023-05-25 12:51 | Outpatient (AMB) | payer OTHER, SELFPAY ==
--- NOTE | 2023-05-25 13:47 | MHC.OFFVIS ---
Intake Intake Visit Reasons: bladder outlet obstruction Intake Note: NEW Patient presents today to established treatment for Bladder Outlet Obstruction: Meds- None Allergies to Antibiotic- No Known Allergies Blood Thinner- None Post Void Residual: 102 mL Zoo Caretaker Required: Yes Zoo Caretaker Language: Danish Accompanied by: Self / Same As Patient Allergies gabapentin Allergy (Intermediate, Verified 05/25/23 14:36) syncope metformin Allergy (Intermediate, Verified 05/25/23 14:36) diarrhea, headache, vomiting morphine [MORPHINE] Allergy (Intermediate, Verified 05/25/23 14:36) ITCH, pruritus lactose [Lactose] Adverse Reaction (Intermediate, Verified 05/25/23 14:36) GAS,DIARRHEA Environmental Allergy (Intermediate, Uncoded 05/25/23 14:36) SNEEZING, ITCY EYES Condoms Latex Lubricated Allergy (Mild, Uncoded 05/25/23 14:36) rash Medication List - Last Reconciled 05/25/23 by Erlinda Taylor MD albuterol sulfate 2.5 mg (3 mL) inhalation Q6H PRN 30 days atorvastatin 80 mg PO BEDTIME 90 days bisacodyl (Dulcolax (bisacodyl)) 20 mg (4 x 5 mg) PO ONCE 1 day cholecalciferol (vitamin D3) 25 mcg PO DAILY 90 days clonazepam 0.5 mg PO DAILY PRN epinephrine (EpiPen) 0.3 mg (0.3 mL) IM Q4H PRN 30 days fluticasone propionate 50 mcg/actuation 1 spray intranasal DAILY 30 days hydrochlorothiazide 25 mg PO DAILY 90 days ketotifen fumarate 0.025%(0.035%) (Eye Itch Relief) 1 drp ophthalmic (eye) BID 7 days lisinopril 40 mg PO DAILY 90 days meclizine 25 mg PO DAILY PRN 30 days montelukast 10 mg PO DAILY 90 days nebulizers (AeroEclipse II Nebulizer) As directed omega 5-yfd-fqu-fish oil 1,000 mg (120 mg-180 mg) (Fish Oil) 1 cap PO DAILY omeprazole 20 mg PO DAILY 90 days polyethylene glycol 3350 (Miralax) 238 grams PO ONCE PRN 1 day Shower Chair As directed Ventolin HFA 90 mcg/actuation (albuterol sulfate) 2 puffs PO Q6H PRN NS ziprasidone HCl 20 mg PO BID HPI HPI Comments History of Present Illness Details Kelli is a 62 year old female who is here for new patient evaluation, she states she had a pelvic US ordered by her YARD COUPLER and was told there were polps in her bladder. Past Medical history -Impaired glucose tolerance, Insomnia, Depression with anxiety, Nicotine dependency, Essential hypertension Surgical history includes but is not limited to H/O cataract extraction, History of left knee surgery, History of tubal ligation History of colon cancer, s/p colon resection, History of The patient complains of intermittent dysuria, denies urinary incontinence. I counselled on nicotine cessation. Bladder scan PVR - 102 mL. I have discussed workup to include evaluation of the upper tracts with renal US and FU cystoscopy evaluation, urine for cytology. Plan:Renal US, urine cyto, fu office cysto PFSH Medical History New daily persistent headache Impaired glucose tolerance Insomnia Depression with anxiety Mild asthma Smoker Dyslipidemia Obese Essential hypertension Surgical History H/O cataract extraction History of left knee surgery History of tubal ligation History of colon cancer History of Family History Mother Hypertension Father Hypertension Brother Colon cancer Family/Other Substance use disorder Mental health disorder Social History Housing: Apartment Alcohol intake: current Alcohol intake frequency: a few times a month Alcohol type: beer Patient Tobacco Use Status: Current someday Tobacco user Tobacco use type: Cigarette Cigarettes Per Day: 2 e-Cigarette/Vaping Use: Never Used Second Hand Smoke Exposure: No service: No Current occupational status: disabled Current occupational exposures/hazards: No Cognitive needs: No Hearing needs: No Vision needs: Yes Review of Systems Const All systems reviewed & are unremarkable except as noted in HPI and below Reports no additional complaints Eyes Reports no additional complaints ENT Reports no additional complaints Card Denies dyspnea Resp Denies cough and Denies dyspnea GI Reports no additional complaints Reports no additional complaints Musc Reports no additional complaints Skin/Breast Denies rash and Denies unusual bruising Neuro Reports no additional complaints Psych Reports no additional complaints Endo Reports no additional complaints Richard/Lymph Reports no additional complaints Aller/Immun Reports no additional complaints Physical Exam Const General: cooperative, healthy appearing and no acute distress Orientation/consciousness: patient oriented x3 HEENT Head: Yes normal to inspection, Yes normocephalic and Yes atraumatic Eyes Conjunctivae: conjunctivae normal Neck Neck: Yes normal visual inspection and Yes trachea midline Chest Chest palpation & inspection: normal inspection of the chest Resp Effort & Inspection: normal respiratory effort Cardio Rate: regular rate GI Inspection: Yes normal to inspection Palpation (GI): Soft to palpation Skin General skin exam: no rashes or lesions noted Neuro General: patient oriented x3 Extrem General: No edema Psych Appearance: grossly normal Office Procedures Post Void Residual Post Residual Void Post Void Residual (PVR): 102 [id number] Void Residual by ultrasound Results AMB Urinalysis, Automated UA Leukoctes 0 Macrina/uL Last Edit by JEAN CARLOS Maria on 05/25/23 14:36 UA Nitrite Negative Last Edit by JEAN CARLOS Maria on 05/25/23 14:36 UA Urobilinogen 0.2 mg/dL Last Edit by JEAN CARLOS Maria on 05/25/23 14:36 UA Protein 6.0 mg/dL Last Edit by JEAN CARLOS Maria on 05/25/23 14:36 UA pH 6.0 Last Edit by JEAN CARLOS Maria on 05/25/23 14:36 UA Blood 0 Leonidas/uL Last Edit by JEAN CARLOS Maria on 05/25/23 14:36 UA Specific [place] 1.015 Last Edit by JEAN CARLOS Maria on 05/25/23 14:36 UA Ketone Negative Last Edit by JEAN CARLOS Maria on 05/25/23 14:36 UA Bilirubin 0 mg/dL Last Edit by JEAN CARLOS Maria on 05/25/23 14:36 UA Glucose 0 mg/dL Last Edit by JEAN CARLOS Maria on 05/25/23 14:36 Results Reviewed Results Reviewed: Laboratory Last Values Urine pH (Auto) 6.0 05/25/23 13:50 Specific [place] (Auto) 1.015 05/25/23 13:50 Urine Protein (Auto) 6.0 mg/dL 05/25/23 13:50 Glucose (UA)(Auto) 0 mg/dL 05/25/23 13:50 Urine Ketones (Auto) Negative 05/25/23 13:50 Urine Blood (Auto) 0 Leonidas/uL 05/25/23 13:50 Urine Nitrite (Auto) Negative 05/25/23 13:50 Urine Bilirubin (Auto) 0 mg/dL 05/25/23 13:50 Urine Urobilinogen (Auto) 0.2 mg/dL 05/25/23 13:50 Leukocyte Esterase (Auto) 0 Macrina/uL 05/25/23 13:50 Date of Service: 03/23/23 EXAMINATION: US PELVIS COMPLETE US PELVIS ENDOVAGINAL CLINICAL INFORMATION: Pelvic peritoneal pain COMPARISON: None. TECHNIQUE: Transabdominal and transvaginal images of the pelvis were obtained. FINDINGS: UTERUS: Anteverted. Normal size and contour, measuring 8.4 x 3.0 x 4.4 cm (cervix to fundus x AP x transverse). Uniform, homogeneous endometrium measures 0.4 cm in width. Hyperechoic lobulated focus noted along the cervix avascular measuring 1.9 x 1.3 x 1.4. RIGHT OVARY: Normal size and echogenicity measuring 1.9 x 1.4 x 1.2 cm, volume 1.7 mL. Cystic focus noted in the right ovary measuring 4 mm. LEFT OVARY: Normal size and echogenicity measuring 1.6 x 0.8 x 1.5 cm, volume 1.0 mL. FREE FLUID: No pelvic free fluid. Incidental note is made of trabeculated bladder wall suggesting elements of bladder outlet obstruction. IMPRESSION: 1. Hyperechoic lobulated focus noted along the cervix avascular measuring 1.9 x 1.3 x 1.4 cm. Consider further evaluation with direct visualization/colposcopy. 2. Cystic focus noted in the right ovary measuring 4 mm, not requiring follow-up 3. Incidental note is made of trabeculated bladder wall suggesting elements of bladder outlet obstruction. Assessment & Plan Assessment & Plan (1) Abnormal finding on ultrasound: Code(s): R93.89 - Abnormal findings on diagnostic imaging of other specified body structures (2) Dysuria: Code(s): R30.0 - Dysuria (3) Bladder wall thickening: Code(s): N32.89 - Other specified disorders of bladder (4) Incomplete bladder emptying: Code(s): R33.9 - Retention of urine, unspecified Plan cysto, urine cytology, renal US Orders: Orders AMB Urinalysis Automated Today Z13.9 - Encounter for screening, unspecified AMB Post Void Residual by ultrasound Today N39.8 - Other specified disorders of urinary system US renal BI Today R30.0 - Dysuria, R93.89 - Abnormal findings on diagnostic imaging of other specified body structures Patient Instructions: The patient had an opportunity to ask questions regarding treatment plan. All questions were answered. Imaging, Laboratory studies and physical exam results were discussed and reviewed in detail. No major barriers to understanding were identified. The patient expressed understanding and agreement with the above treatment plan. The patient is aware they should contact our office by phone for worsening of their current condition or the appearance of new symptoms. Compliance is encouraged with any medications and followup testing that is ordered. It is a privilege to be allowed the opportunity to participate in the urologic care of your patient. If you have any questions or concerns regarding treatment for the above conditions please do not hesitate to contact me. The office telephone contact is [phone]. This note is constructed in part using voice recognition software. While every effort has been made to ensure accuracy gas blender errors may have been included. Yours sincerely, Erlinda Taylor MD Coding Level of Care Code New Pt Level 4 (69749) Diagnoses Abnormal finding on ultrasound R93.89 Dysuria R30.0 Bladder wall thickening N32.89 Incomplete bladder emptying R33.9 CPT Codes Post Residual Void - PVR CPT Code: 94471-Ucqn Void Residual by ultrasound ([id number])
== END 2023-05-25 14:58 | disposition home or self-care (01) ==
PROVIDERS: PCP Internal Medicine; Visit Provider Urology
DX: R93.89 Abnormal findings on diagnostic imaging of other specified body structures (principal); R30.0 Dysuria; N32.89 Other specified disorders of bladder; R33.9 Retention of urine, unspecified; Z13.9 Encounter for screening, unspecified
CPT/HCPCS: 99204

== ENCOUNTER 2023-05-25 12:51 | Outpatient (REF) | payer OTHER, SELFPAY | END 2023-05-25 12:52 | disposition home or self-care (01) | LOC: HO.LNP 12:51 | PROVIDERS: PCP Internal Medicine; Visit Provider Urology | DX: N32.89 Other specified disorders of bladder (principal); R30.0 Dysuria; R33.9 Retention of urine, unspecified; R93.89 Abnormal findings on diagnostic imaging of other specified body structures | CPT/HCPCS: 51798; 81003; 88112; 99202 ==

== ENCOUNTER 2023-06-08 09:21 | Outpatient (AMB) | payer OTHER, SELFPAY ==
[2023-06-08 09:48] VITALS: BP 126/70; BMI 32.7
--- NOTE | 2023-06-08 09:48 | A.OFFPC_ITS ---
Vital Signs 06/08/23 09:48 Height 5 ft 2 in Weight 179 lb BMI 32.7 BP 126/70 Blood Pressure Location Lt brachial Position Sitting Intake Visit Reasons: Annual Exam Intake Note: Patient here for an annual physical exam Special Education Coordinator Required: No Accompanied by: Self / Same As Patient Allergies gabapentin Allergy (Intermediate, Verified 06/08/23 10:17) syncope metformin Allergy (Intermediate, Verified 06/08/23 10:17) diarrhea, headache, vomiting morphine [MORPHINE] Allergy (Intermediate, Verified 06/08/23 10:17) ITCH, pruritus lactose [Lactose] Adverse Reaction (Intermediate, Verified 06/08/23 10:17) GAS,DIARRHEA Environmental Allergy (Intermediate, Uncoded 06/08/23 10:17) SNEEZING, ITCY EYES Condoms Latex Lubricated Allergy (Mild, Uncoded 06/08/23 10:17) rash Medication List - Last Reconciled 06/08/23 by Porsche Muro MD albuterol sulfate 2.5 mg (3 mL) inhalation Q6H PRN 30 days atorvastatin 80 mg PO BEDTIME 90 days bisacodyl (Dulcolax (bisacodyl)) 20 mg (4 x 5 mg) PO ONCE 1 day cholecalciferol (vitamin D3) 25 mcg PO DAILY 90 days clonazepam 0.5 mg PO DAILY PRN epinephrine (EpiPen) 0.3 mg (0.3 mL) IM Q4H PRN 30 days fluticasone propionate 50 mcg/actuation 1 spray intranasal DAILY 30 days hydrochlorothiazide 25 mg PO DAILY 90 days ketotifen fumarate 0.025%(0.035%) (Eye Itch Relief) 1 drp ophthalmic (eye) BID 7 days lisinopril 40 mg PO DAILY 90 days meclizine 25 mg PO DAILY PRN 30 days montelukast 10 mg PO DAILY 90 days nebulizers (AeroEclipse II Nebulizer) As directed omega 5-qyt-waj-fish oil 1,000 mg (120 mg-180 mg) (Fish Oil) 1 cap PO DAILY omeprazole 20 mg PO DAILY 90 days polyethylene glycol 3350 (Miralax) 238 grams PO ONCE PRN 1 day Shower Chair As directed Ventolin HFA 90 mcg/actuation (albuterol sulfate) 2 puffs PO Q6H PRN NS ziprasidone HCl 20 mg PO BID Tobacco use date assessed: 06/08/23 Dental Screening Dental Screen Date: 06/08/23 Did you have a dental visit in the last 12 months?: Yes Did you have a dental problem in the last 6 months where you did not have access to dental care?: No Was dental information given to patient?: Yes HPI HPI Comments History of Present Illness Details This is a 62-year-old female with mild major depression that comes for her physical exam. Depression is follow by Psychiatry and has been stable. Last mammogram was done March 2023. Pap smear done 2022. 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 Colonoscopy will be done July 2023. No chest pain or shortness of breath. Doing well. [facility] Medical History (Updated 06/08/23 @ 10:32 by Porsche Muro MD) New daily persistent headache Impaired glucose tolerance Insomnia Depression with anxiety Mild asthma Smoker Dyslipidemia Obese Essential hypertension Surgical History (Updated 06/08/23 @ 10:21 by Porsche Muro MD) H/O cataract extraction History of left knee surgery History of tubal ligation History of Family History Mother Hypertension Father Hypertension Brother Colon cancer Family/Other Substance use disorder Mental health disorder Social History Housing: Apartment Alcohol intake: current Alcohol intake frequency: a few times a month Alcohol type: beer Patient Tobacco Use Status: Current someday Tobacco user Tobacco use type: Cigarette Cigarettes Per Day: 1 e-Cigarette/Vaping Use: Never Used Second Hand Smoke Exposure: No service: No Current occupational status: disabled Current occupational exposures/hazards: No Cognitive needs: No Hearing needs: No Vision needs: Yes Questionnaire PHQ-9 Over the last 2 weeks, how often have you been bothered by any of the following problems? 1. Little interest or pleasure in doing things: several days 2. Feeling down, depressed, or hopeless: more than half the days 3. Trouble falling or staying asleep, or sleeping too much: several days 4. Feeling tired or having little energy: several days 5. Poor appetite or overeating: several days 6. Feeling bad about yourself - or that you are a failure or have let yourself or your family down: not at all 7. Trouble concentrating on things, such as reading the newspaper or watching television: not at all 8. Moving or speaking so slowly that other people could have noticed. Or the opposite - being so fidgety or restless that you have been moving around a lot more than usual: not at all 9. Thoughts that you would be better off or of hurting yourself in some way: not at all Total score: 6 Depression Screening Interpretation: Positive Depression Screening Follow-up: Existing condition, In treatment and Community Mental Health Worker F/U Depression Screening Done: Yes 77635 - PHQ-9 Billing: Yes Source: Developed by Drs. Jj Smart, Wendi Rivera, Demian Gallego and colleagues, with an educational keila from [employer]. Thrive Questionnaire Date Thrive assessed: 06/08/23 I am a: Patient What is your living situation today?: I have a steady place to live Within the past 12 months, did the food you bought not last and you didn't have the money to get more?: Never true Within the past 12 months, did you worry whether your food would run out before you got money to buy more?: Never true Do you have trouble paying for medicines?: No Do you have trouble getting transportation to medical appointments?: No Do you have trouble paying your heating and electricity bill?: No Do you have trouble taking care of your child, family member or friend?: No Do you have trouble with day-to-day activities such as bathing, preparing meals, shopping, managing finances, etc.?: No Are you currently unemployed and looking for a job?: No Are you interested in more education?: No Please select the resources that you would like help with: None Currently or been in a relationship where the following occur: no concerns reported AUDIT C Alcohol Use Questionnaire (AUDIT-C) 1. How often do you have a drink containing alcohol?: Monthly or less 2. How many drinks containing alcohol do you have on a typical day when you are drinking?: 1 or 2 3. How often do you have six or more drinks on one occasion?: Never Total Score: 1 Score Reviewed/Action Taken: No FRANCISCO-7 AMB Questionnaire FRANCISCO-7 Date FRANCISCO - 7 assessed: 06/08/23 Feeling nervous, anxious, or on edge: 2 = More than half the days Not being able to stop or control worryin = Not at all Worrying too much about different things: 1 = Several days Trouble relaxin = Not at all Being so restless that it is hard to sit still: 0 = Not at all Becoming easily annoyed or irritable: 0 = Not at all Feeling afraid as if something awful might happen: 1 = Several days Total FRANCISCO-7 score (0-4 normal; 5-9 mild; 10-14 moderate; 15-21 severe): 4 Source: Developed by Drs. Jj Smart, Wendi Rivera, Demian Gallego and colleagues, with an educational keila from [employer]. FRANCISCO-7 Assessment Billing FRANCISCO-7 Assessment Tool: FRANCISCO-7 Assessment 49065 Review of Systems Const All systems reviewed & are unremarkable except as noted in HPI and below Eyes Reports no additional complaints, Denies change in vision and Denies other visual disturbances Card Denies chest pain at rest, Denies chest pain with activity, Denies edema, Denies irregular heart rhythm, Denies claudication, Denies dyspnea, Denies dyspnea on exertion, Denies orthopnea, Denies paroxysmal nocturnal dyspnea and Denies slow heart rate Resp Denies cough, Denies dyspnea and Denies dyspnea on exertion GI Denies abdominal pain, Denies change in bowel habits, Denies excessive flatus, Denies nausea and Denies vomiting Denies urinary incontinence, Denies urinary hesitancy and Denies urinary urgency Musc Denies abnormal gait, Denies atrophy, Denies deformity and Denies limited range of motion Skin/Breast Denies bleeding lesions, Denies changing lesions and Denies rash Neuro Denies abnormal gait, Denies behavioral changes, Denies confusion and Denies lack of coordination Psych Denies behavioral changes and Denies confusion Physical exam (Primary Care) Vital Signs: Last Vital Signs BP 126/70 06/08/23 09:48 BMI result Body Mass Index 32.7 Tobacco/Smoking Status: Tobacco use Status Tobacco use date assessed 06/08/23 06/08/23 10:00 Patient Tobacco Use Status Current someday Tobacco 06/08/23 10:00 Tobacco use type Cigarette 06/08/23 10:00 e-Cigarette/Vaping Use Never Used 06/08/23 10:00 PHQ-9: PHQ-9 Score PHQ-9: Total score 6 06/08/23 10:09 Depression Screening Interpretation: Positive Depression Screening Follow-up: Existing condition, In treatment and Community Mental Health Worker F/U Thrive Assessment: Date of Thrive Assessment Date Thrive assessed 06/08/23 06/08/23 10:00 Currently or been in a relationship where the following occur: no concerns reported Const General: No confusion Orientation/consciousness: patient oriented x3 and No confusion HENMT Head: Yes normal to inspection, Yes normocephalic and Yes atraumatic Ears: external ears normal Eyes General: appearance normal, both eyes and all related structures Eyelids: Yes eyelids normal Conjunctivae: conjunctivae normal Neck Neck: Yes normal visual inspection and Yes supple Resp Effort & Inspection: normal respiratory effort Auscultation: clear to auscultation bilaterally Cardio Jugular venous distension: no JVD Rate: regular rate Rhythm: regular rhythm Heart sounds: S1 normal heart sound present and S2 normal heart sound present GI Inspection: Yes normal to inspection Palpation (GI): Soft to palpation and nontender Auscultation: normal bowel sounds Skin General skin exam: no rashes or lesions noted Neuro General: patient oriented x3, no focal motor deficits and No confusion Extrem General: Yes full ROM Psych Appearance: grossly normal Office Procedures Flu Questionnaire Does the patient have a severe egg allergy?: No Immunizations flu vacc [id number] 6mos up(PF) 60 mcg(15 mcgx4)/0.5 mL IM syringe Performing Provider: Porsche Muro MD [facility] Documented (not given) by: JEAN CARLOS Lagunas on 06/08/23 10:10 Reason Not Given: Patient Refused Assessment and Plan Assessment & Plan (1) Encounter for physical examination: Code(s): Z00.00 - Encounter for general adult medical examination without abnormal findings Plan: Repeat in a year. (2) Mild major depression: Code(s): F32.0 - Major depressive disorder, single episode, mild Plan: Follow-up with psychiatry. Orders: Orders Influenza [id number] Immunization Today Z23 - Encounter for immunization Vitamin D 25-OH Total Today E55.9 - Vitamin D deficiency, unspecified Comprehensive [place]eland. Panel Fast Today Z00.00 - Encounter for general adult medical examination without abnormal findings Lipid Panel Today E78.5 - Hyperlipidemia, unspecified Coding Level of Care Code Est Pt Prev Care 40-64y(57756) Diagnoses Encounter for physical examination Z00.00 Mild major depression F32.0 Additional Codes FRANCISCO-7 Assessment Billing - FRANCISCO-7 Assessment Tool: FRANCISCO-7 Assessment 68514 ([id number]) Time Spent (min) 32
== END 2023-06-08 10:29 | disposition home or self-care (01) ==
PROVIDERS: Visit Provider Internal Medicine
DX: Z00.00 Encounter for general adult medical examination without abnormal findings (principal); F32.0 Major depressive disorder, single episode, mild; F17.210 Nicotine dependence, cigarettes, uncomplicated
CPT/HCPCS: 99396

== ENCOUNTER 2023-07-08 10:16 | Outpatient (REF) | payer OTHER, SELFPAY ==
--- NOTE | ~2023-07-08 | US_ITS ---
EXAMINATION: US PELVIS WITH TRANSVAGINAL CLINICAL INFORMATION: Postmenopausal, ovarian cyst. COMPARISON: Pelvic ultrasound of 03/23/2023. TECHNIQUE: Ultrasound of the pelvis is performed using both transabdominal and transvaginal transducers along with Doppler. Transvaginal imaging is performed due to inadequate visualization transabdominally. FINDINGS: The uterus measures 8.1 x 2.3 x 4.5 cm. Heterogeneous myometrium. Redemonstration of a 1.8 x 0.9 x 1.4 cm hyperechoic, avascular, lobulated mass along the cervix, previously 1.9 x 1.4 x 1.2 cm. Gynecologic consultation recommended to determine further management. Endometrial thickness is 0.3 cm. Small amount of free fluid in the pelvis. Right ovary measures 1.8 x 1.2 x 1.5 cm, volume 1.7 mL. Left ovary measures 1.5 x 1.3 x 1.3 cm, volume 1.4 mL. Bilateral ovaries are grossly unremarkable, although visualization is limited due to bowel gas. Incidental note on limited views of the bladder of trabeculation of the bladder wall as previously noted, possibly related to bladder outlet obstruction. US/US pelvic and transvaginal IMPRESSION: 1. Redemonstration of a 1.8 x 0.9 x 1.4 cm hyperechoic, avascular, lobulated mass along the cervix, previously 1.9 x 1.4 x 1.2 cm. Gynecologic consultation recommended to determine further management including direct visualization/colposcopy. 2. Unremarkable bilateral ovaries. 3. Incidental note of trabeculation of the bladder wall, possibly related to bladder outlet obstruction.
== END 2023-07-08 10:17 | disposition home or self-care (01) ==
LOC: HO.US 10:16
PROVIDERS: PCP Internal Medicine; Visit Provider Obstetrics & Gynecology
DX: N83.299 Other ovarian cyst, unspecified side (principal)
CPT/HCPCS: 76830; 76856

== ENCOUNTER 2023-07-19 09:19 | Outpatient (AMB) | payer OTHER, SELFPAY ==
--- NOTE | 2023-07-19 10:20 | MHC.OFFVIS ---
Intake Vital Signs 07/19/23 10:34 Height 5 ft 2 in Weight 178 lb 9.191 oz BMI 32.7 BP 118/74 Intake Visit Reasons: US follow up Poker Room Manager Required: Yes Poker Room Manager Language: Brim Pouncer Machine Operator Name: Saranya EVANGELISTA Information Interpreted: non-clinical & clinical Accompanied by: Self / Same As Patient Allergies gabapentin Allergy (Intermediate, Verified 07/19/23 10:35) syncope metformin Allergy (Intermediate, Verified 07/19/23 10:35) diarrhea, headache, vomiting morphine [MORPHINE] Allergy (Intermediate, Verified 07/19/23 10:35) ITCH, pruritus lactose [Lactose] Adverse Reaction (Intermediate, Verified 07/19/23 10:35) GAS,DIARRHEA Environmental Allergy (Intermediate, Uncoded 07/19/23 10:35) SNEEZING, ITCY EYES Condoms Latex Lubricated Allergy (Mild, Uncoded 07/19/23 10:35) rash Post menopausal: Yes HPI HPI Comments History of Present Illness Details Presenting for follow-up regarding the right ovarian cystic focus that was seen on previous ultrasound on 04/11/2023 Pelvic exam showed normal cervix, last co testing done in 03/14 was then normal, and the patient was referred to Urology for the abnormal bladder on ultrasound. Ultrasound done on 07/08/2023 showed the following: The uterus measures 8.1 x 2.3 x 4.5 cm. Heterogeneous myometrium. Redemonstration of a 1.8 x 0.9 x 1.4 cm hyperechoic, avascular, lobulated mass along the cervix, previously 1.9 x 1.4 x 1.2 cm. Gynecologic consultation recommended to determine further management. Endometrial thickness is 0.3 cm. Small amount of free fluid in the pelvis. Right ovary measures 1.8 x 1.2 x 1.5 cm, volume 1.7 mL. Left ovary measures 1.5 x 1.3 x 1.3 cm, volume 1.4 mL. Bilateral ovaries are grossly unremarkable, although visualization is limited due to bowel gas. Incidental note on limited views of the bladder of trabeculation of the bladder wall as previously noted, possibly related to bladder outlet obstruction. [facility] Medical History New daily persistent headache Impaired glucose tolerance Insomnia Depression with anxiety Mild asthma Smoker Dyslipidemia Obese Essential hypertension Surgical History H/O cataract extraction History of left knee surgery History of tubal ligation History of Family History Mother Hypertension Father Hypertension Brother Colon cancer Family/Other Substance use disorder Mental health disorder Social History Housing: Apartment Alcohol intake: current Alcohol intake frequency: a few times a month Alcohol type: beer Patient Tobacco Use Status: Current someday Tobacco user Tobacco use type: Cigarette Cigarettes Per Day: 1 e-Cigarette/Vaping Use: Never Used Second Hand Smoke Exposure: No service: No Current occupational status: disabled Current occupational exposures/hazards: No Cognitive needs: No Hearing needs: No Vision needs: Yes Review of Systems Const All systems reviewed & are unremarkable except as noted in HPI and below Physical Exam Vital Signs: Last Vital Signs BP 118/74 07/19/23 10:34 BMI result Body Mass Index 32.7 General: Yes no CVA tenderness External Female Exam: normal external appearance and normal appearance of the urethra Speculum Exam - Vagina: normal appearance of the vagina, normal palpation, no lesions and no masses Speculum Exam - Cervix: normal appearance of the cervix, normal palpation, no lesions, no masses and nontender Bimanual exam- vagina & uterus: normal bimanual exam, normal palpation, uterine size normal, normal palpation, uterine shape normal, No Cervical tenderness present and non-tender Bimanual Exam- Adnexa, other: normal adnexae Back/Spine/Pelvis Back: no CVA tenderness Assessment & Plan Assessment & Plan (1) Abnormal ultrasound of ovary: Comment: 4 mm focus by ultrasound Code(s): R93.5 - Abnormal findings on diagnostic imaging of other abdominal regions, including retroperitoneum Plan: Discussed with the patient ultrasound findings showing the previously identified 4 mm focus by ultrasound has resolved. The patient was instructed to call if symptoms recur. All questions were answered the patient verbalized understanding. (2) Abnormal ultrasound of bladder: Code(s): R93.41 - Abnormal radiologic findings on diagnostic imaging of renal pelvis, ureter, or bladder Plan: The patient was referred to Urology and is being worked up for the abnormal finding on ultrasound regarding the bladder. (3) Cervical lesion: Comment: On ultrasound Code(s): N88.9 - Noninflammatory disorder of cervix uteri, unspecified Plan: Repeat pelvic exam was within normal, last co testing in 03/14 was within normal. Instructions given the patient to call in case of vaginal bleeding pelvic pain or any other concerns. Coding Level of Care Code Est Pt Level 3 (72267) Diagnoses Abnormal ultrasound of ovary R93.5 Abnormal ultrasound of bladder R93.41 Cervical lesion N88.9
[2023-07-19 10:34] VITALS: BP 118/74; BMI 32.7
== END 2023-07-19 10:56 | disposition home or self-care (01) ==
LOC: HO.HWS 09:19
PROVIDERS: PCP Internal Medicine; Visit Provider Obstetrics & Gynecology
DX: R93.5 Abnormal findings on diagnostic imaging of other abdominal regions, including retroperitoneum (principal); R93.41 Abnormal radiologic findings on diagnostic imaging of renal pelvis, ureter, or bladder; N88.9 Noninflammatory disorder of cervix uteri, unspecified
CPT/HCPCS: 99213

== ENCOUNTER → 2023-07-19 09:19 | Outpatient (BNVA) | payer OTHER, SELFPAY | PROVIDERS: PCP Internal Medicine; Visit Provider Obstetrics & Gynecology | DX: R93.5 Abnormal findings on diagnostic imaging of other abdominal regions, including retroperitoneum (principal); R93.41 Abnormal radiologic findings on diagnostic imaging of renal pelvis, ureter, or bladder; N88.9 Noninflammatory disorder of cervix uteri, unspecified | CPT/HCPCS: 99212 ==

== ENCOUNTER 2023-08-11 08:20 | Emergency (ER) | payer OTHER, SELFPAY ==
--- NOTE | ~2023-08-11 | XR_ITS ---
EXAMINATION: XR CHEST CLINICAL INFORMATION: Dizziness COMPARISON: 09/12/2015 TECHNIQUE: 2 views of the chest were obtained. FINDINGS: No significant abnormality is noted involving the heart, lungs, mediastinum, bony thorax or soft tissues. XR/XR chest 2V IMPRESSION: Unremarkable examination.
--- NOTE | 2023-08-11 08:30 | ED.GENADULT ---
HPI - General Adult General Chief complaint: Dizziness Stated complaint: dizzy Time Seen by Provider: 08/11/23 08:30 Source: patient, EMS and duck operator (all communication with this patient performed with [facility] duck operator staff at the bedside) Mode of arrival: EMS Limitations: language barrier (all communication with this patient performed with [facility] duck operator staff at the bedside) History of Present Illness HPI narrative: Patient is a 62 year old assigned female at with a history of tobacco use, HTN, depression, and anxiety presenting to the emergency department today with lightheadedness. Patient states that she was prepping for a colonoscopy and this morning she got lightheaded. Patient denies any abdominal pain, nausea, vomiting, fever, chills, blurry vision, double vision, loss of vision, chest pain, difficulty breathing, shortness of breath, back pain, night sweats, pain with urination, increased urinary frequency, increased urinary urgency, blood in her urine or stool, syncope or a near syncopal episode, recent trauma or falls, bowel incontinence, bladder incontinence, bowel retention, bladder retention, or any other complaints at this time. Onset (ago): minute(s) Relieving factors: none Exacerbating factors: none Associated symptoms: denies other symptoms Treatments prior to arrival: none Related Data Home Medications Medication Instructions Recorded Confirmed clonazepam 0.5 mg tablet 0.5 mg PO DAILY PRN Anxiety 10/29/20 08/09/23 omega 4-rrt-gje-fish oil 1,000 mg 1 cap PO DAILY 10/29/20 08/09/23 (120 mg-180 mg) capsule (Fish Oil) ziprasidone HCl 20 mg capsule 20 mg PO BID 05/27/22 08/09/23 Previous Rx's Medication Instructions Recorded epinephrine 0.3 mg/0.3 mL 0.3 mg (0.3 mL) IM Q4H PRN 05/18/22 injection, auto-injector (EpiPen) anaphylaxis 30 days #2 ea nebulizers (AeroEclipse II #1 ea 05/27/22 Nebulizer) Shower Chair #1 ea 01/01/23 Ventolin HFA 90 mcg/actuation 2 puff PO Q6H PRN shortness of 03/25/23 aerosol inhaler (albuterol sulfate) breath or wheezing #18 ea lisinopril 40 mg tablet 40 mg PO DAILY 90 days #90 tabs 03/25/23 bisacodyl 5 mg tablet,delayed 20 mg (4 x 5 mg) PO ONCE 04/04/23 release (Dulcolax (bisacodyl)) colonoscopy prep 1 day #4 tabs polyethylene glycol 3350 17 238 g PO ONCE PRN laxative effect 04/04/23 gram/dose oral powder (Miralax) 1 day #238 grams albuterol sulfate 2.5 mg/3 mL 2.5 mg (3 mL) inhalation Q6H PRN 04/26/23 (0.083 %) solution for nebulization bronchospasm 30 days #360 mL fluticasone propionate 50 1 spray intranasal DAILY 30 days 04/26/23 mcg/actuation nasal #15.8 mL spray,suspension hydrochlorothiazide 25 mg tablet 25 mg PO DAILY 90 days #90 tabs 04/26/23 montelukast 10 mg tablet 10 mg PO DAILY 90 days #90 tabs 04/26/23 omeprazole 20 mg capsule,delayed 20 mg PO DAILY 90 days #90 caps 04/26/23 release cholecalciferol (vitamin D3) 25 25 mcg PO DAILY 90 days #90 caps 05/01/23 mcg (1,000 unit) capsule ketotifen fumarate 0.025 % (0.035 1 drp ophthalmic (eye) BID 7 days 06/27/23 %) eye drops (Eye Itch Relief) #5 mL meclizine 25 mg tablet 25 mg PO DAILY PRN dizziness 30 06/27/23 days #30 tabs atorvastatin 80 mg tablet 80 mg PO BEDTIME 90 days #90 tabs 07/24/23 Allergies Allergy/AdvReac Type Severity Reaction Status Date / Time gabapentin Allergy Intermediate syncope Verified 08/11/23 08:40 metformin Allergy Intermediate diarrhea, Verified 08/11/23 08:40 headache, vomiting morphine [MORPHINE] Allergy Intermediate ITCH, Verified 08/11/23 08:40 pruritus lactose [Lactose] AdvReac Intermediate GAS,DIARRHE Verified 08/11/23 08:40 A Environmental Allergy Intermediate SNEEZING, Uncoded 07/19/23 10:35 ITCY EYES Condoms Latex Lubricated Allergy Mild rash Uncoded 07/19/23 10:35 Review of Systems Constitutional: Constitutional: Reports no additional constitutional complaints, Denies chills, Denies fever(s) and Denies night sweats Eyes: Eyes: Reports no additional eye complaints, Denies blurry vision, Denies change in vision, Denies diplopia, Denies eye discharge, Denies loss of vision and Denies eye pain Cardiovascular: Cardiovascular: Reports no additional cardiovascular complaints, Denies chest pain, Denies lightheadedness, Denies Loss of Consciousness and Denies dyspnea Respiratory: Respiratory: Reports no additional respiratory complaints and Denies dyspnea Gastrointestinal: Gastrointestinal: Reports no additional gastrointestinal complaints, Denies abdominal pain, Denies melena, Denies hematochezia, Denies change in bowel habits and Denies change in stool character Genitourinary: Genitourinary: Denies hematuria, Denies urinary frequency, Denies dysuria, Denies urinary incontinence, Denies urinary hesitancy and Denies urinary urgency Musculoskeletal: Musculoskeletal: Reports no additional musculoskeletal complaints, Denies numbness and Denies tingling Neurologic: Denies loss of vision, Denies numbness and Denies tingling Comments: lightheadedness Psychiatric: Psychiatric: Reports no additional psychiatric complaints Endocrine: Endocrine: Reports no additional endocrine complaints Hematologic/Lymphatic: Hematologic/Lymphatic: Reports no additional hematologic/lymphatic complaints Allergic/Immunologic: Allergic/Immunologic: Reports no additional allergic/immunologic complaints PMFSH Past Medical History Attestation statement: The following information was validated with the patient. Source: old records reviewed, nursing notes reviewed and other (all communication with this patient performed with [facility] duck operator staff at the bedside) Medical History Mild major depression Bladder wall thickening Dysuria Abnormal finding on ultrasound Abnormal ultrasound of ovary Abnormal ultrasound of bladder Encounter for screening colonoscopy Pelvic pressure in female Well woman exam Thoracic spine pain Lumbar pain Neck pain Head injury Skin lesion Screening for cervical cancer Encounter for physical examination New daily persistent headache Obese Back pain GERD (gastroesophageal reflux disease) Impaired glucose tolerance Insomnia Depression with anxiety Mild asthma Smoker Dyslipidemia Essential hypertension Surgical History H/O cataract extraction History of left knee surgery History of tubal ligation History of Family History Family History Mother Hypertension Father Hypertension Brother Colon cancer Family/Other Substance use disorder Mental health disorder Social History Social History Housing: Apartment Alcohol intake: current Alcohol intake frequency: a few times a month Alcohol type: beer Patient Tobacco Use Status: Current someday Tobacco user Tobacco use type: Cigarette Cigarettes Per Day: 1 Smoked in Last 30 Days: No e-Cigarette/Vaping Use: Never Used Second Hand Smoke Exposure: No Use of substances other than those prescribed or required for medical reasons: No Advance Directives: No service: No Current occupational status: disabled Current occupational exposures/hazards: No Cognitive needs: No Hearing needs: No Vision needs: Yes Physical Exam ED Vital Signs: Vital Signs - 24 hr 08/11/23 08:33 08/11/23 08:40 08/11/23 10:45 Temperature 98.2 F 98.1 F Pulse Rate 77 73 62 Respiratory Rate 16 16 18 Blood Pressure 114/68 116/70 113/51 L Pulse Oximetry 99 99 96 Oxygen Delivery Method Room Air Room Air Room Air BMI result Body Mass Index 31.1 Const General: cooperative, no acute distress, alert and awake Nutritional Appearance: well nourished Orientation/consciousness: patient oriented x3 Limitations: no limitations HENMT Head: Yes normal to inspection and Yes atraumatic Ears: hearing grossly normal bilaterally and external ears normal General nose exam: Normal external nose present, no nasal discharge noted and no epistaxis Face and sinus: Yes normal facial exam, No abrasion and No laceration Mouth: Normal oral and palatal mucosa present, no drooling and no muffled voice Eyes General: appearance normal, both eyes and all related structures Periorbital: periorbital findings normal Eyelids: Yes eyelids normal Conjunctivae: conjunctivae normal Pupils: Equal, round and reactive pupils present EOM: EOMs intact bilaterally Neck Neck: Yes normal visual inspection, Yes full ROM and Yes no lymphadenopathy Chest Chest palpation & inspection: normal inspection of the chest Resp Effort & Inspection: normal respiratory effort and able to speak in complete sentences GI Inspection: Yes normal to inspection Neuro General: patient oriented x3 and moves all extremities Cranial nerves: Yes Equal, round and reactive pupils present Cognition (Neuro): normal cognition Motor exam (neuro): 5/5 motor strength present throughout Sensory Exam: Normal double simultaneous stimulation for sensation Coordination: [id number] test normal Extrem General: Yes normal to inspection, Yes full ROM and Yes capillary refill normal Psych Appearance: grossly normal Mental Status: mental status grossly normal Affect: normal affect Attitude: cooperative Thought process: Normal thought process present Thought content: Normal thought content present Insight: Good insight present (Psych) Procedures Smoking Cessation Time Spent Discussing Smoking Cessation w/Patient (min): 5 Patient Acknowledges Need for Cessation: Yes Medical Decision Making Medical Decision Making [facility] Narrative: Patient is a 62 year old assigned female at with a history of tobacco use, HTN, depression, and anxiety presenting to the emergency department today with lightheadedness. Patient's physical exam was unremarkable. Patient's blood work was unremarkable. Patient's urine showed no acute process. Patient's EKG was read as atrial flutter however, it actually shows sinus rhythm with artifact. Patient's chest x-ray showed no acute process. I explained my physical exam findings as well as all test results to the patient. I answered all questions asked by the patient. I spoke to GI who agreed to proceed with the patient's outpatient procedure. I stressed the importance of the patient taking her medication as prescribed. I stressed the importance of the patient following up with her primary care provider. I stressed the importance of the patient returning to the emergency department immediately if her symptoms were to worsen or if she were to develop any dizziness, shortness of breath, difficulty breathing, chest pain, blurry vision, loss of vision, nausea, vomiting, abdominal pain, fever, chills, back pain, or any other complaints. Patient verbalized agreement and understanding with this treatment plan and discharge. Differential Diagnosis Differential Diagnoses: The differential diagnosis associated with the presentation includes Lightheadedness Hypoglycemia Orthostatic hypotension Admission/Observation Consideration of admission/observation: Escalation of care including admission/observation considered Patient would have been admitted to the hospital had her work up had any findings where hospital admission was appropriate and her clinical presentation warranted hospital admission. Consult Healthcare Provider Management of the patient was discussed with: Security Developer (spoke to GI as noted who agreed to proceed with the patient's outpatient procedure.) Lab Data [facility] Lab Attestation statement: I reviewed the patient's lab results. My interpretation of these results are in the [facility] Rationale portion of this note. 08/11/23 10:00 08/11/23 10:00 Labs: Lab Results 08/11/23 Range/Units 10:00 WBC 11.4 H (4.8-10.8) X10*3/uL RBC 4.79 (4.20-5.50) X10*6/uL Hgb 14.1 (12.0-16.0) g/dl Hct 41.6 (37.0-47.0) % MCV 86.8 (80.0-98.0) fL MCH 29.4 (27.0-33.0) pg MCHC 33.9 (31.0-35.0) g/dl RDW 12.8 (11.0-16.0) % Plt Count 320 (160-400) X10*3/uL MPV 10.5 (9.4-12.3) fL Immature Gran % (Auto) 0.4 (0.0-0.4) % Neut % (Auto) 73.2 H (45-73) % Lymph % (Auto) 19.3 L (20-40) % Rogers % (Auto) 5.4 (2-11) % Eos % (Auto) 1.3 (0-4) % Baso % (Auto) 0.4 (0-2) % Lymph # (Auto) 2.2 (1.2-4.9) X10*3/uL Rogers # (Auto) 0.6 (0.1-1.2) X10*3/uL Eos # (Auto) 0.2 (0.0-0.4) X10*3/uL Baso # (Auto) 0.0 (0.0-0.2) X10*3/uL Abs Immat Gran (auto) 0.04 H (0.00-0.03) X10*3/uL Absolute Neuts (auto) 8.3 (2.0-8.3) x10*3/uL Absolute Nucleated RBC 0.000 (0.0-0.012) X10*3/uL Nucleated RBC % (auto) 0.0 (0.0-0.2) /100WBC Sodium 141 (135-145) mmol/L Potassium 3.7 (3.3-5.1) mmol/L Chloride 102 (96-108) mmol/L Carbon Dioxide 27 (22-29) mmol/L Anion Gap 16 (12-20) BUN 9 (9-16) mg/dL Creatinine 0.71 (0.5-1.4) mg/dL Estim Creat Clear Calc 92.7 Estimated GFR > 60 Random Glucose 114 (60-115) mg/dL Calcium 10.1 (8.4-10.2) mg/dL Magnesium 2.0 (1.6-2.6) mg/dL Total Bilirubin 0.5 (0.0-1.0) mg/dL AST 29 (5-31) U/L ALT 23 (0-31) U/L Alkaline Phosphatase 98 (39-117) U/L Troponin I High Sens 3.3 (<3.5-17.0) ng/L Total Protein 7.6 (6.5-8.0) g/dL Albumin 4.4 (3.5-5.0) g/dL Urine Color Yellow Urine Appearance Clear Urine pH 6.5 (5.0-9.0) Ur Specific [place] 1.010 (1.005-1.025) Urine Protein Negative (Neg-Trace) mg/dL Urine Glucose (UA) Negative (Negative) mg/dL Urine Ketones Negative (Negative) mg/dL Urine Blood Negative (Negative) Urine Nitrite Negative (Negative) Ur Leukocyte Esterase Negative (Negative) Influenza Type A (PCR) NEGATIVE (Negative) Influenza Type B (PCR) NEGATIVE (Negative) RSV RNA Qual (PCR) NEGATIVE (Negative) SARS-CoV-2 RNA (RT-PCR) NEGATIVE (Negative) Independent Interpretation I performed an independent interpretation of an: EKG and Plain X-Ray Interpretation: My interpretation is in agreement with the radiologist's impression of this imaging study. EXAMINATION: XR CHEST CLINICAL INFORMATION: Dizziness COMPARISON: 09/12/2015 TECHNIQUE: 2 views of the chest were obtained. FINDINGS: No significant abnormality is noted involving the heart, lungs, mediastinum, bony thorax or soft tissues. XR/XR chest 2V IMPRESSION: Unremarkable examination. Dictated By: Bobby Arrieta MD Signed By: Electronically signed by Bobby Arrieta MD 08/11/23 0858 Vent. Rate: 068 BPM Atrial Rate: 068 BPM P-R Int: 000 ms QRS Dur: 082 ms QT Int: 416 ms P-R-T Axes: 056 040 039 degrees QTc Int: 442 ms Sinus rhythm with artifact DD/ 0851 Radiology Impression Discussion of test interpretation with radiology: I have reviewed the radiologist's reading. Critical Care Time Critical Care Time Critical Care Time: Yes Total Critical Care Time: 55 Attestation: I spent 55 minutes of Critical Care Time with this patient. This does not include time spent on separately reported billable procedures. Discharge Plan Discharge Clinical Impression: Light-headedness Patient Disposition: Still a Patient
[2023-08-11 08:33] VITALS: BP 114/68; PULSE 77; RESP 16; TEMP 36.8; O2SAT 99
--- NOTE | 2023-08-11 08:33 | ECG_ITS ---
Test Reason : dizzy Blood Pressure : / mmHG Vent. Rate : 068 BPM Atrial Rate : 312 BPM P-R Int : 000 ms QRS Dur : 082 ms QT Int : 416 ms P-R-T Axes : 056 040 039 degrees QTc Int : 442 ms Artifact in tracing Normal sinus rhythm Normal ECG When compared with ECG of 12-SEP-2015 08:59, No significant changes seen Referred By: Latoya Myers Electronically Signed By:ANTOINETTE RUEDA
[2023-08-11 08:40] VITALS: BP 111/74; BP 116/70; PULSE 73; PULSE 74; RESP 16; TEMP 36.7; O2SAT 98; O2SAT 99; BMI 31.1
[2023-08-11 10:07] LABS: MANUAL DIFF FLAG NO
--- NOTE | 2023-08-11 10:07 | PC.NURSE ---
Pt scheduled for endo/colonoscopy this morning at 0900 - ED provider would like labs to result & then patient to be discharged to short stay to complete procedure. Pt to remain NPO in preparation - no RN bedside swallow completed.
[2023-08-11 10:10] LABS: Appearance Urine Clear; Basophils Percent Auto 0.4 % (0-2); Color Urine Yellow; Eosinophils Absolute Auto 0.2 X10*3/uL (0.0-0.4); Eosinophils Percent Auto 1.3 % (0-4); Glucose Urine UA Negative (Negative); Hematocrit 41.6 % (37.0-47.0); Hemoglobin 14.1 g/dl (12.0-16.0); Imm Gran Abs Auto 0.04 X10*3/uL (0.00-0.03); Imm Gran Pct Auto 0.4 % (0.0-0.4); Leukocyte Esterase Urine Negative (Negative); Lymphocytes Absolute Auto 2.2 X10*3/uL (1.2-4.9); Lymphocytes Percent Auto 19.3 % (20-40); Mean Corpuscular HGB Conc 33.9 g/dl (31.0-35.0); Mean Corpuscular Hemoglobin 29.4 pg (27.0-33.0); Mean Corpuscular Volume 86.8 fL (80.0-98.0); Mean Platelet Volume 10.5 fL (9.4-12.3); Monocytes Absolute Auto 0.6 X10*3/uL (0.1-1.2); Monocytes Percent Auto 5.4 % (2-11); Neutrophils Absolute Auto 8.3 x10*3/uL (2.0-8.3); Neutrophils Percent Auto 73.2 % (45-73); Nitrite Urine Negative (Negative); PH 6.5 (5.0-9.0); Platelet Count 320 X10*3/uL (160-400); Red Blood Count 4.79 X10*6/uL (4.20-5.50); Red Cell Distribution Width 12.8 % (11.0-16.0); Urine Blood Negative (Negative); Urine Ketones Negative (Negative); Urine Protein Negative (Neg-Trace); White Blood Count 11.4 X10*3/uL (4.8-10.8)
[2023-08-11 10:26] LABS: Alanine Aminotransferase 23 U/L (0-31); Albumin Level 4.4 g/dL (3.5-5.0); Alkaline Phosphatase 98 U/L (39-117); Anion Gap 16 (12-20); Aspartate Amino Transferase 29 U/L (5-31); Bilirubin Total 0.5 mg/dL (0.0-1.0); Blood Urea Nitrogen 9 mg/dL (9-16); Calcium 10.1 mg/dL (8.4-10.2); Carbon Dioxide 27 mmol/L (22-29); Chloride 102 mmol/L (96-108); Creatinine Clr Calc Pharmacy 92.7; Estimated Glomerular Filt Rate > 60; Glucose Random 114 mg/dL (60-115); Potassium 3.7 mmol/L (3.3-5.1); Sodium 141 mmol/L (135-145); Total Protein 7.6 g/dL (6.5-8.0)
[2023-08-11 10:33] LABS: Troponin-I High Sensitivity 3.3 ng/L (<3.5-17.0)
--- NOTE | 2023-08-11 10:43 | PC.NURSE ---
Short stay contacted regarding patient scheduled upper endoscopy/sigmoidoscopy. Attempting to facilitate transfer.
[2023-08-11 10:44] LABS: Influenza A PCR NEGATIVE (Negative); Influenza B PCR NEGATIVE (Negative); Resp Syncy Virus RNA Qual PCR NEGATIVE (Negative); SARS COV2 PCR INHOUSE NEGATIVE (Negative)
[2023-08-11 10:45] VITALS: BP 113/51; PULSE 62; RESP 18; O2SAT 96
== END 2023-08-12 20:33 | disposition still patient (30) ==
PROVIDERS: Physician Assistant Medical; Emergency Provider Emergency Medicine; PCP Internal Medicine
DX: R42 Dizziness and giddiness (principal); I10 Essential (primary) hypertension; F41.8 Other specified anxiety disorders; F17.210 Nicotine dependence, cigarettes, uncomplicated; Z11.52 Encounter for screening for COVID-19; Z20.822 Contact with and (suspected) exposure to COVID-19; Z91.040 Latex allergy status; Z88.5 Allergy status to narcotic agent; Z88.8 Allergy status to other drugs, medicaments and biological substances; Z79.899 Other long term (current) drug therapy; Z71.6 Tobacco abuse counseling
CPT/HCPCS: 0241U; 71046; 80053; 81003; 83735; 84484; 85025; 93005; 99283; 99285

== ENCOUNTER → 2023-08-11 08:33 | Outpatient (BNV) | payer OTHER, SELFPAY | PROVIDERS: Emergency Provider Emergency Medicine; PCP Internal Medicine; Visit Provider Internal Medicine | DX: R42 Dizziness and giddiness (principal) | CPT/HCPCS: 93010 ==

== ENCOUNTER 2023-08-11 12:10 | Day surgery (SDC) | payer OTHER, SELFPAY ==
[2023-08-09 12:45] VITALS: BMI 32.7
--- NOTE | 2023-08-10 09:10 | P.CONAN_ITS ---
Documented by User: Tomeka Gamboa NP 08/10/23 09:11 HPI - Anesthesia Eval Consult details Narrative: 62yo F for Upper Endoscopy, Sigmoidoscopy Flexible PMFSH Active Problems Active Problems: All Active Problems (Updated 08/09/23 @ 12:34 by Lissett De Los Santos RN) Mild major depression (Acute) Incomplete bladder emptying (Acute) Bladder wall thickening (Acute) Dysuria (Acute) Abnormal finding on ultrasound (Acute) Abnormal ultrasound of ovary (Acute) Abnormal ultrasound of bladder (Acute) Cervical lesion (Acute) History of colon polyps (Acute) Acid reflux (Acute) History of benign carcinoid tumor (Acute) Encounter for screening colonoscopy (Acute) Pelvic pressure in female (Acute) Well woman exam (Acute) Thoracic spine pain (Acute) Lumbar pain (Acute) Neck pain (Acute) Head injury (Acute) Lumbar degenerative disc disease (Acute) Skin lesion (Acute) History of malignant carcinoid tumor of colon (Acute) Screening for cervical cancer (Acute) Encounter for physical examination (Acute) New daily persistent headache (Acute) Impaired glucose tolerance (Acute) Insomnia (Acute) Depression with anxiety (Acute) Mild asthma (Acute) Smoker (Acute) Dyslipidemia (Acute) Obese (Acute) Essential hypertension (Acute) Past Medical History Medical History Mild major depression Bladder wall thickening Dysuria Abnormal finding on ultrasound Abnormal ultrasound of ovary Abnormal ultrasound of bladder Encounter for screening colonoscopy Pelvic pressure in female Well woman exam Thoracic spine pain Lumbar pain Neck pain Head injury Skin lesion Screening for cervical cancer Encounter for physical examination New daily persistent headache Obese Back pain GERD (gastroesophageal reflux disease) Impaired glucose tolerance Insomnia Depression with anxiety Mild asthma Smoker Dyslipidemia Essential hypertension Family History Family History Mother Hypertension Father Hypertension Brother Colon cancer Family/Other Substance use disorder Mental health disorder Surgical History Surgical History H/O cataract extraction History of left knee surgery History of tubal ligation History of Social History Social History Housing: Apartment Alcohol intake: current Alcohol intake frequency: a few times a month Alcohol type: beer Patient Tobacco Use Status: Current someday Tobacco user Tobacco use type: Cigarette Cigarettes Per Day: 1 e-Cigarette/Vaping Use: Never Used Date Education Initiated: 08/11/23 Second Hand Smoke Exposure: No Use of substances other than those prescribed or required for medical reasons: No Are you DNR?: No Advance Directives: No Advance Directives Information Provided: Yes service: No Current occupational status: disabled Current occupational exposures/hazards: No Cognitive needs: No Hearing needs: No Vision needs: Yes Meds Allergies Allergy/AdvReac Type Severity Reaction Status Date / Time gabapentin Allergy Intermediate syncope Verified 08/11/23 08:40 metformin Allergy Intermediate diarrhea, Verified 08/11/23 08:40 headache, vomiting morphine [MORPHINE] Allergy Intermediate ITCH, Verified 08/11/23 08:40 pruritus lactose [Lactose] AdvReac Intermediate GAS,DIARRHE Verified 08/11/23 08:40 A Environmental Allergy Intermediate SNEEZING, Uncoded 07/19/23 10:35 ITCY EYES Condoms Latex Lubricated Allergy Mild rash Uncoded 07/19/23 10:35 Home Medications Medication Instructions Recorded Confirmed Last Taken Type clonazepam 0.5 mg tablet 0.5 mg PO DAILY PRN Anxiety 10/29/20 08/09/23 Unknown History omega 0-iyw-bfd-fish oil 1,000 mg 1 cap PO DAILY 10/29/20 08/09/23 Unknown History (120 mg-180 mg) capsule (Fish Oil) ziprasidone HCl 20 mg capsule 20 mg PO BID 05/27/22 08/09/23 Unknown History Exam Height,Weight and Vital Signs: Height 5 ft 2 in Weight 81.193 kg Assessment and Plan Assessment Anesthesia Assessment: Chart Reviewed Documented by User: Obdulia Johnson MD 08/11/23 12:59 HPI - Anesthesia Eval Consult details Narrative: 62yo F for Upper Endoscopy, Colonoscopy. Seen in ER this morning for dizziness. Came to [facility] afterwards. W/u negative. Patient did a full prep for colonoscopy. Dizziness occurred after she took lisinopril and had been standing for about 1/2 hour awaiting transportation. Probably due to dehydration. VSS. Will proceed with EGD, Colonoscopy PMF Active Problems Active Problems: All Active Problems (Updated 08/11/23 @ 12:25 by Obdulia Johnson MD) Mild major depression (Acute) Incomplete bladder emptying (Acute) Bladder wall thickening (Acute) Dysuria (Acute) Abnormal ultrasound of ovary (Acute) Abnormal ultrasound of bladder (Acute) Cervical lesion (Acute) History of colon polyps (Acute) Acid reflux (Acute) History of benign carcinoid tumor (Acute) Encounter for screening colonoscopy (Acute) Pelvic pressure in female (Acute) Well woman exam (Acute) Thoracic spine pain (Acute) Lumbar pain (Acute) Neck pain (Acute) Head injury (Acute) Lumbar degenerative disc disease (Acute) Skin lesion (Acute) History of malignant carcinoid tumor of colon (Acute) Screening for cervical cancer (Acute) Encounter for physical examination (Acute) New daily persistent headache (Acute) Impaired glucose tolerance (Acute) Insomnia (Acute) Depression with anxiety (Acute) Mild asthma (Acute)- inhaler prn Smoker (Acute) Dyslipidemia (Acute) Obese (Acute) Essential hypertension (Acute) Past Medical History Medical History Mild major depression Bladder wall thickening Dysuria Abnormal finding on ultrasound Abnormal ultrasound of ovary Abnormal ultrasound of bladder Encounter for screening colonoscopy Pelvic pressure in female Well woman exam Thoracic spine pain Lumbar pain Neck pain Head injury Skin lesion Screening for cervical cancer Encounter for physical examination New daily persistent headache Obese Back pain GERD (gastroesophageal reflux disease) Impaired glucose tolerance Insomnia Depression with anxiety Mild asthma Smoker Dyslipidemia Essential hypertension Family History Family History Mother Hypertension Father Hypertension Brother Colon cancer Family/Other Substance use disorder Mental health disorder Family history of problems with anesthesia: No Surgical History Surgical History H/O cataract extraction History of left knee surgery History of tubal ligation History of History of Problems with Anesthesia: No Social History Social History Housing: Apartment Alcohol intake: current Alcohol intake frequency: a few times a month Alcohol type: beer Patient Tobacco Use Status: Current someday Tobacco user Tobacco use type: Cigarette Cigarettes Per Day: 1 e-Cigarette/Vaping Use: Never Used Date Education Initiated: 08/11/23 Second Hand Smoke Exposure: No Use of substances other than those prescribed or required for medical reasons: No Are you DNR?: No Advance Directives: No Advance Directives Information Provided: Yes service: No Current occupational status: disabled Current occupational exposures/hazards: No Cognitive needs: No Hearing needs: No Vision needs: Yes Meds Allergies Allergy/AdvReac Type Severity Reaction Status Date / Time gabapentin Allergy Intermediate syncope Verified 08/11/23 08:40 metformin Allergy Intermediate diarrhea, Verified 08/11/23 08:40 headache, vomiting morphine [MORPHINE] Allergy Intermediate ITCH, Verified 08/11/23 08:40 pruritus lactose [Lactose] AdvReac Intermediate GAS,DIARRHE Verified 08/11/23 08:40 A Environmental Allergy Intermediate SNEEZING, Uncoded 07/19/23 10:35 ITCY EYES Condoms Latex Lubricated Allergy Mild rash Uncoded 07/19/23 10:35 Home Medications Medication Instructions Recorded Confirmed Last Taken Type clonazepam 0.5 mg tablet 0.5 mg PO DAILY PRN Anxiety 10/29/20 08/09/23 Unknown History omega 6-idm-qdd-fish oil 1,000 mg 1 cap PO DAILY 10/29/20 08/09/23 Unknown History (120 mg-180 mg) capsule (Fish Oil) ziprasidone HCl 20 mg capsule 20 mg PO BID 05/27/22 08/09/23 Unknown History Exam Height,Weight and Vital Signs: Height 5 ft 2 in Weight 81.193 kg Vital Signs Temp Pulse Resp BP Pulse Ox O2 Del Method 08/11/23 12:30 97.1 F 69 18 111/68 98 Room Air Airway Mallampati Class: II TM Dist: >3cm Neck ROM: Limited (Limited extension from arthritis ) Loose/Missing/Broken Teeth: No (Denies broken, loose, missing teeth) Heart: RRR Lungs: CTAB Assessment and Plan Assessment Anesthesia Assessment: Anesthesia Plan Discussed and Chart Reviewed Final Anesthetic Review Family History of Problems with Anesthesia: No History of Problems with Anesthesia: No NPO: Yes ASA Class: III Final Preanesthetic Review: No Changes in Pt Med Stat, Meds/Allgs Chart Reviewed, Consent Obtained/Reviewed and Anes Risks/Benef Reviewed Patient Risk: Intermediate Procedure Risk: Low Assessment/Block/Sedation in SS: Assess/Block/Sedation-SS Anesthetic Plan Anesthetic Plan: MAC: and TIVA Disposition: Standard PACU
[2023-08-11 12:30] VITALS: BP 111/68; PULSE 69; RESP 18; TEMP 36.2; O2SAT 98
[2023-08-11] MEDS: Lactated Ringers 1,000 ML 100 ML IVCONT (12:43)
--- NOTE | 2023-08-11 12:57 | MHC.SHP ---
Pre-Procedural Eval Section A - 24 Hr Update-Section A only Date of Service: 08/11/23 Section B - Complete if H&P > 30 days Chief Complaint: Gastro-esophageal reflux disease without esophagit Details of Present Illness: hx of colon polyps Relevant Family History (Specify if Yes): No Relevant Social History: Tobacco Use Present Medications: see Short Stay Collaborative assessment Medical History: Significant History (Mild major depression Bladder wall thickening Dysuria Abnormal finding on ultrasound Abnormal ultrasound of ovary Abnormal ultrasound of bladder Encounter for screening colonoscopy Pelvic pressure in female Well woman exam Thoracic spine pain Lumbar pain Neck pain Head injury Skin lesion Screening f) History of Previous Operations: Relevant previous surgery/procedure and date(s) (H/O cataract extraction History of left knee surgery History of tubal ligation History of ) Allergies: Allergies Allergy/AdvReac Type Severity Reaction Status Date / Time gabapentin Allergy Intermediate syncope Verified 08/11/23 08:40 metformin Allergy Intermediate diarrhea, Verified 08/11/23 08:40 headache, vomiting morphine [MORPHINE] Allergy Intermediate ITCH, Verified 08/11/23 08:40 pruritus lactose [Lactose] AdvReac Intermediate GAS,DIARRHE Verified 08/11/23 08:40 A Environmental Allergy Intermediate SNEEZING, Uncoded 07/19/23 10:35 ITCY EYES Condoms Latex Lubricated Allergy Mild rash Uncoded 07/19/23 10:35 Review of Systems Sugical H&P ROS: Negative: Constitution, Cardiovascular, Respiratory, Neurological, Psychiatric, Hem-Onc, Allergic/Immunologic, Gastrointestinal, Genitourinary, Musculoskeletal, Integumentary, Endocrine and Eyes/Ears/Nose/Throat Exam Surgical H&P Exam: Normal: HEENT, Normal: Heart, Normal: Lungs, Normal: Extremities, Normal: Abdomen, Normal: Skin and Normal: Neurological Plan Diagnosis/Plan: Unchanged I have reviewed the history and physical and performed a pertinent physical examination on my patient. No changes have occurred unless specified. Time Spent With Patient Time: Total time managing care of this patient today ____ minutes.
--- NOTE | 2023-08-11 13:04 | P.OP_ITS ---
Operative Note Operative Note Date of Service: 08/11/23 Narrative: Operative Information Procedure Description: EGD, Colonoscopy Indication: hx of polyps and GERD Anesthesia: MAC FLEXIBLE TRANSORAL UPPER GASTROINTESTINAL ENDOSCOPY AND COLONOSCOPY PROCEDURE NOTE UPPER ENDOSCOPY Consent: Indications for the procedure and potential complications of bleeding, perforation, reaction to medications and missed diagnosis were discussed with the patient and informed consent was obtained. Instrument: Olympus GIF H 190 J mid size upper endoscope Monitoring: Vital signs and clinical assessment, continuous EKG monitoring, Pulse oximetry, Carbon Dioxide monitoring and blood pressure monitoring were done throughout the procedure. Procedure: The patient was placed in the left lateral decubitis position and pre-procedure medications were administered and a bite block was placed. The endoscope was inserted into the mouth and advanced under direct vision to the third part of duodenum. A careful inspection was made as the upper endoscope was withdrawn including a retroflexed examination of the proximal stomach; Findings and interventions are described below. Findings: Larynx:normal Esophagus: GE junction at 38 cm, diaphragm hiatus at 38 cm, normal mucosa --bx taken from distal esophagus Stomach: patchy erythema. Biopsies were obtained. Grade 2 flap valve on retroflexed examination of the cardia. Duodenum: Normal bulb and descending duodenum, Intervention: Biopsies as noted above, COLONOSCOPY Instrument: Olympus variable stiffness pediatric scope 190L Colonoscopy Monitoring: Vital signs and clinical assessment, continuous EKG monitoring, Pulse oximetry, Carbon Dioxide monitoring and blood pressure monitoring were done throughout the procedure. Colon withdrawal time was 12 minutes. Procedure: The patient was placed in the left lateral decubitis position and pre-procedure medications were administered. After a digital rectal examination of the ano-rectum, the video colonoscope was inserted into the rectum and advanced through the colon to the cecum/TI. The colonoscope was slowly withdrawn in a retrograde panoramic fashion and the colon mucosa was carefully examined including a retroflexed view of the rectum. Findings and interventions are described below. Procedure Difficulty:moderate Findings: Terminal Ileum-not intubated Cecum: 3-4 mm sessile polyp removed with cold forceps, there was a prominent fold, initially I thought it was an atypical polyp and injected it with eleview, but after it was raised it did not appear to be a polyp, so few biopsies taken Ascending Colon: moderate severe diverticulosis Transverse Colon -normal Descending Colon: moderate severe diverticulosis Sigmoid Colon: moderate severe diverticulosis Rectum: Retroflexion with small internal hemorrhoids, grade I Anorectum - normal Colon preparation: [place] Bowel Preparation Scale Right colon; 2 Transverse colon: 2 Left colon; 1-2 (0 = Unprepared colon segment with mucosa not seen due to solid stool that cannot be cleared. 1 = Portion of mucosa of the colon segment seen, but other areas of the colon segment not well seen due to staining, residual stool and/or opaque liquid. 2 = Minor amount of residual staining, small fragments of stool and/or opaque liquid, but mucosa of colon segment seen well. 3 = Entire mucosa of colon segment seen well with no residual staining, small fragments of stool or opaque liquid) Impression and Post Procedure Diagnosis: Endoscopy Findings: gastritis Colonoscopy Findings: diverticulosis colon polyp internal hemorrhoids Plan: Await Pathology results Repeat Colonoscopy in 1-2 years due to fair left sided prep or earlier if clinically indicated High fiber diet leaflet avoid straining at stool, epsom salts and sitz bath, anusol supps or cream if h pylori pos then treat Above findings were reviewed with the patient and relevant handouts were provided if indicated.
[2023-08-11 13:49] VITALS: BP 90/40; PULSE 98; RESP 12; TEMP 36.6; O2SAT 95
[2023-08-11 14:04] VITALS: BP 101/53; PULSE 88; RESP 20; TEMP 36.2; O2SAT 97
== END 2023-08-11 14:25 | disposition home or self-care (01) ==
PROVIDERS: PCP Internal Medicine; Visit Provider Internal Medicine Gastroenterology
PROC: 0DJ08ZZ Inspection of Upper Intestinal Tract, Via Natural or Artificial Opening Endoscopic (ICD-10-PCS; CPT 43235; principal; 2023-08-11 11:00)
DX: Z12.11 Encounter for screening for malignant neoplasm of colon (principal); Z86.012 Personal history of benign carcinoid tumor; Z86.010 Personal history of colon polyps; K63.5 Polyp of colon; K57.30 Diverticulosis of large intestine without perforation or abscess without bleeding; K64.0 First degree hemorrhoids; K21.9 Gastro-esophageal reflux disease without esophagitis; K29.50 Unspecified chronic gastritis without bleeding; K44.9 Diaphragmatic hernia without obstruction or gangrene; I10 Essential (primary) hypertension; E78.5 Hyperlipidemia, unspecified; R73.02 Impaired glucose tolerance (oral); J45.909 Unspecified asthma, uncomplicated; F33.0 Major depressive disorder, recurrent, mild; R51.9 Headache, unspecified; Z79.899 Other long term (current) drug therapy; Z88.5 Allergy status to narcotic agent; Z88.8 Allergy status to other drugs, medicaments and biological substances; F17.210 Nicotine dependence, cigarettes, uncomplicated
CPT/HCPCS: 45380; 43239; 88305; 88313; 88342; J2704

== ENCOUNTER → 2023-08-11 12:10 | Outpatient (BNV) | payer OTHER, SELFPAY | PROVIDERS: PCP Internal Medicine; Visit Provider Internal Medicine Gastroenterology | DX: Z12.11 Encounter for screening for malignant neoplasm of colon (principal); Z86.010 Personal history of colon polyps; K21.9 Gastro-esophageal reflux disease without esophagitis; D12.0 Benign neoplasm of cecum; K57.30 Diverticulosis of large intestine without perforation or abscess without bleeding; K64.0 First degree hemorrhoids | CPT/HCPCS: 43239; 45380; 45381 ==

== ENCOUNTER 2023-08-18 09:29 | Outpatient (AMB) | payer OTHER, SELFPAY ==
--- NOTE | 2023-08-18 11:19 | AM.OFFVISNUR ---
Intake Intake Visit Reasons: cysto/US Allergies gabapentin Allergy (Intermediate, Verified 08/11/23 08:40) syncope metformin Allergy (Intermediate, Verified 08/11/23 08:40) diarrhea, headache, vomiting morphine [MORPHINE] Allergy (Intermediate, Verified 08/11/23 08:40) ITCH, pruritus lactose [Lactose] Adverse Reaction (Intermediate, Verified 08/11/23 08:40) GAS,DIARRHEA Environmental Allergy (Intermediate, Uncoded 07/19/23 10:35) SNEEZING, ITCY EYES Condoms Latex Lubricated Allergy (Mild, Uncoded 07/19/23 10:35) rash Office Procedures Cystoscopy Consent Discussed risk and benefit or proposed procedure with the patient. Information consent for procedure given to the patient. Discussed technical aspects, risks, benefits and alternatives in full. Addressed all of the patient's questions and concerns regarding the procedure. The patient demonstrated knowledge and understanding. They wish to proceed with this procedure. Preparation The patient was prepped in the usual manner. A roller mill tender was present and in the room. Genitalia was prepped with betadine solution in a sterile manner. Lidocaine Jelly 2% was placed into the urethra and 16Fr flexible Olympus cystoscope was inserted into the meatus after adequate lubrication. [id number] DISPOSABLE SCOPE URO-G FLEXIBLE SCOPE Procedure code (CPT) selection complete Office Meds lidocaine HCl 2 % mucosal jelly in applicator Performing Provider: Erlinda Taylor MD [facility] Administered by: Twan Tavera LPN on 08/18/23 11:19 Dose Route Admin Location Dispensed Lot Number Expiration Date [facility] Ship Rigger Apprentice 10 mL intra-urethral 20 mL naproxen 500 mg tablet Performing Provider: Erlinda Taylor MD Performing Location: [facility] Administered by: Twan Tavera LPN on 08/18/23 11:19 Dose Route Admin Location Dispensed Lot Number Expiration Date [place] Ship Rigger Apprentice 500 mg PO 1 tab ciprofloxacin HCl 500 mg tablet Performing Provider: Erlinda Taylor MD Performing [facility] Administered by: Twan Tavera LPN on 08/18/23 11:19 Dose Route Admin Location Dispensed Lot Number Expiration Date [facility] Ship Rigger Apprentice 500 mg PO 1 tab Coding CPT Codes Cystoscopy - CPT: 62940-[id number] ([id number]) Assessment & Plan Assessment & Plan Orders: Orders AMB Cystoscopy Today R33.9 - Retention of urine, unspecified
--- NOTE | 2023-08-18 11:24 | A.OFFVIS_ITS ---
Intake Intake Visit Reasons: cysto/US Intake Note: Patient presents today for a CYSTOSCOPY Procedure: Meds: None Allergies to Antibiotic: No Known Allergies Blood Thinner: None Urinalysis test clear for Cysto? YES Disposable Uro-G HD Cystoscope Cannula: Lot: [id number] Exp: 03/17/2026 Product Design Manager Required: No Accompanied by: Self / Same As Patient Allergies gabapentin Allergy (Intermediate, Verified 08/22/23 11:35) syncope metformin Allergy (Intermediate, Verified 08/22/23 11:35) diarrhea, headache, vomiting morphine [MORPHINE] Allergy (Intermediate, Verified 08/22/23 11:35) ITCH, pruritus lactose [Lactose] Adverse Reaction (Intermediate, Verified 08/22/23 11:35) GAS,DIARRHEA Environmental Allergy (Intermediate, Uncoded 08/18/23 11:25) SNEEZING, ITCY EYES Condoms Latex Lubricated Allergy (Mild, Uncoded 08/18/23 11:25) rash HPI HPI Comments History of Present Illness Details Kelli is a 62 year old female who is here for folow up, she states she had a pelvic US ordered by her ASSISTANT NEWS DIRECTOR and was told there were polyps in her bladder. She was initially evaluated on 05/25/23. Past Medical history -Impaired glucose tolerance, Insomnia, Depression with anxiety, Nicotine dependency, Essential hypertension. Surgical history includes but is not limited to H/O cataract extraction, History of left knee surgery, History of tubal ligation, History of colon cancer, s/p colon resection, History of . The patient complains of intermittent dysuria, denies urinary incontinence. I counselled on nicotine cessation. She is here for cystoscopy. She has not had renal ultrasound. Urine cytology sent on 05/25/2023--results negative for malignant cells Cystoscopy findings: Bladder wall thickening no suspicious bladder lesions visualized. Plan:Renal US ordered. Follow-up p.r.n. pending ultrasound findings. [facility] Medical History (Updated 04/16/24 @ 09:17 by Erlinda Taylor MD) Bladder wall thickening Mild major depression Dysuria Abnormal finding on ultrasound Abnormal ultrasound of ovary Abnormal ultrasound of bladder Encounter for screening colonoscopy Pelvic pressure in female Well woman exam Thoracic spine pain Lumbar pain Neck pain Head injury Skin lesion Screening for cervical cancer Encounter for physical examination New daily persistent headache Obese Back pain GERD (gastroesophageal reflux disease) Impaired glucose tolerance Insomnia Depression with anxiety Mild asthma Smoker Dyslipidemia Essential hypertension Surgical History H/O cataract extraction History of left knee surgery History of tubal ligation History of Family History Mother Hypertension Father Hypertension Brother Colon cancer Family/Other Substance use disorder Mental health disorder Social History Housing: Apartment Alcohol intake: current Alcohol intake frequency: a few times a month Alcohol type: beer Patient Tobacco Use Status: Current someday Tobacco user Tobacco use type: Cigarette Cigarettes Per Day: 1 e-Cigarette/Vaping Use: Never Used Second Hand Smoke Exposure: No service: No Current occupational status: disabled Current occupational exposures/hazards: No Cognitive needs: No Hearing needs: No Vision needs: Yes Review of Systems Const All systems reviewed & are unremarkable except as noted in HPI and below Reports no additional complaints Eyes Reports no additional complaints ENT Reports no additional complaints Card Reports no additional complaints Resp Reports no additional complaints GI Reports no additional complaints Reports as per HPI Musc Reports no additional complaints Skin/Breast Reports system reviewed and no additional complaints, except as documented Neuro Reports no additional complaints Psych Reports no additional complaints Endo Reports no additional complaints Richard/Lymph Reports no additional complaints Aller/Immun Reports no additional complaints Office Procedures Cystoscopy Consent Discussed risk and benefit or proposed procedure with the patient. Information consent for procedure given to the patient. Discussed technical aspects, risks, benefits and alternatives in full. Addressed all of the patient's questions and concerns regarding the procedure. The patient demonstrated knowledge and understanding. They wish to proceed with this procedure. Preparation The patient was prepped in the usual manner. A lumber sticker was present and in the room. Genitalia was prepped with betadine solution in a sterile manner. Lidocaine Jelly 2% was placed into the urethra and 16Fr flexible Olympus cystoscope was inserted into the meatus after adequate lubrication. Procedure Time out per protocol performed. Bladder Inspection Bladder Inspection: The bladder was inspected in its entirety with utilization retroflexion displaying: Tumor(s): Nonvisualized Trabeculation: Moderate Mucosal Erthema: Not applicable Orifices: normal shape and position Urethra: normal Cystoscopy findings: no suspicious bladder lesions visualized [id number] DISPOSABLE SCOPE URO-G FLEXIBLE SCOPE Procedure code (CPT) selection complete Office Meds lidocaine HCl 2 % mucosal jelly in applicator Performing Provider: Erlinda Taylor MD Performing Location: [facility] [place] [facility] Administered by: Twan Tavera LPN on 08/18/23 11:19 Dose Route Admin Location Dispensed Lot Number Expiration Date [facility] Lard Mixer 10 mL intra-urethral 20 mL naproxen 500 mg tablet Performing Provider: Erlinda Taylor MD Performing Location: [facility] Administered by: Twan Tavera LPN on 08/18/23 11:19 Dose Route Admin Location Dispensed Lot Number Expiration Date [place] Lard Mixer 500 mg PO 1 tab ciprofloxacin HCl 500 mg tablet Performing Provider: Erlinda Taylor MD Performing Location: [facility] Administered by: Twan Tavera LPN on 08/18/23 11:19 Dose Route Admin Location Dispensed Lot Number Expiration Date [place] Lard Mixer 500 mg PO 1 tab Results AMB Urinalysis, Automated UA Leukoctes 0 Macrina/uL Last Edit by JEAN CARLOS Maria on 08/18/23 11:41 UA Nitrite Negative Last Edit by JEAN CARLOS Maria on 08/18/23 11:41 UA Urobilinogen 0.2 mg/dL Last Edit by JEAN CARLOS Maria on 08/18/23 11:4 1 UA Protein 0 mg/dL Last Edit by JEAN CARLOS Maria on 08/18/23 11:41 UA pH 7.0 Last Edit by JEAN CARLOS Maria on 08/18/23 11:41 UA Blood 0 Leonidas/uL Last Edit by JEAN CARLOS Maria on 08/18/23 11:41 UA Specific [place] 1.005 Last Edit by JEAN CARLOS Maria on 08/18/23 11: 41 UA Ketone Negative Last Edit by JEAN CARLOS Maria on 08/18/23 11:41 UA Bilirubin 0 mg/dL Last Edit by JEAN CARLOS Maria on 08/18/23 11:41 UA Glucose 0 mg/dL Last Edit by JEAN CARLOS Maria on 08/18/23 11:41 Results Reviewed Results Reviewed: Laboratory Last Values Urine pH (Auto) 7.0 08/18/23 11:39 Specific [place] (Auto) 1.005 08/18/23 11:39 Urine Protein (Auto) 0 mg/dL 08/18/23 11:39 Glucose (UA)(Auto) 0 mg/dL 08/18/23 11:39 Urine Ketones (Auto) Negative 08/18/23 11:39 Urine Blood (Auto) 0 Leonidas/uL 08/18/23 11:39 Urine Nitrite (Auto) Negative 08/18/23 11:39 Urine Bilirubin (Auto) 0 mg/dL 08/18/23 11:39 Urine Urobilinogen (Auto) 0.2 mg/dL 08/18/23 11:39 Leukocyte Esterase (Auto) 0 Macrina/uL 08/18/23 11:39 Collected: 05/25/23 Location: [facility] Received: 05/26/23 Diagnosis Urine: Negative for high-grade urothelial carcinoma. COMMENT: Examination of a monolayer preparation slide shows many benign squamous cells, and few benign urothelial cells, crystals, inflammatory cells, and red blood cells. Clinical History Bladder wall thickening Material Received Urine Gross Description 68 cc clear yellow fluid Assessment & Plan Assessment & Plan (1) Urinary tract disorder: Code(s): N39.9 - Disorder of urinary system, unspecified (2) Bladder wall thickening: Code(s): N32.89 - Other specified disorders of bladder (3) Nicotine dependence: Code(s): F17.200 - Nicotine dependence, unspecified, uncomplicated Plan renal ultrasound as long as normal findings will follow-up p.r.n. basis Orders: Orders AMB Urinalysis Automated 08/18/23 Z13.9 - Encounter for screening, unspecified AMB Cystoscopy 08/18/23 R33.9 - Retention of urine, unspecified US renal BI 08/18/23 N39.9 - Disorder of urinary system, unspecified Patient Instructions: The patient had an opportunity to ask questions regarding treatment plan. All questions were answered. Laboratory studies and physical exam results were discussed and reviewed in detail. No major barriers to understanding were identified. The patient expressed understanding and agreement with the above treatment plan. The patient is aware they should contact our office by phone for worsening of their current condition or the appearance of new symptoms. Compliance is encouraged with any medications and followup testing that is ordered. It is a privilege to be allowed the opportunity to participate in the urologic care of your patient. If you have any questions or concerns regarding treatment for the above conditions please do not hesitate to contact me. The office telephone contact is [phone]. This note is constructed in part using voice recognition software. While every effort has been made to ensure accuracy frame polisher errors may have been included. Yours sincerely, Erlinda Taylor MD Coding Level of Care Code Est Pt Level 2 (42711) Diagnoses Urinary tract disorder N39.9 Bladder wall thickening N32.89 Nicotine dependence F17.200 CPT Codes Cystoscopy - CPT: 72681-[id number] ([id number])
== END 2023-08-18 12:23 | disposition home or self-care (01) ==
PROVIDERS: PCP Internal Medicine; Visit Provider Urology
DX: R33.9 Retention of urine, unspecified (principal); Z13.9 Encounter for screening, unspecified
CPT/HCPCS: 52000

== ENCOUNTER → 2023-08-18 09:29 | Outpatient (BNVA) | payer OTHER, SELFPAY | PROVIDERS: PCP Internal Medicine; Visit Provider Urology | DX: N39.9 Disorder of urinary system, unspecified (principal); N32.89 Other specified disorders of bladder; F17.200 Nicotine dependence, unspecified, uncomplicated | CPT/HCPCS: 52000; 81003 ==

== ENCOUNTER 2023-08-22 11:06 | Outpatient (AMB) | payer OTHER, SELFPAY ==
--- NOTE | 2023-08-22 11:29 | A.OFFVIS_ITS ---
Intake Intake Visit Reasons: s/p egd/sigmoid Mcmanus Intake Note: Patient follow up for EGD/Colonoscopy results Patient cc: Human Service Coordinator Required: No Accompanied by: Self / Same As Patient Allergies gabapentin Allergy (Intermediate, Verified 08/22/23 11:29) syncope metformin Allergy (Intermediate, Verified 08/22/23 11:29) diarrhea, headache, vomiting morphine [MORPHINE] Allergy (Intermediate, Verified 08/22/23 11:29) ITCH, pruritus lactose [Lactose] Adverse Reaction (Intermediate, Verified 08/22/23 11:29) GAS,DIARRHEA Environmental Allergy (Intermediate, Uncoded 08/18/23 11:25) SNEEZING, ITCY EYES Condoms Latex Lubricated Allergy (Mild, Uncoded 08/18/23 11:25) rash PFSH Medical History (Updated 08/18/23 @ 12:12 by Erlinda Taylor MD) Bladder wall thickening Mild major depression Dysuria Abnormal finding on ultrasound Abnormal ultrasound of ovary Abnormal ultrasound of bladder Encounter for screening colonoscopy Pelvic pressure in female Well woman exam Thoracic spine pain Lumbar pain Neck pain Head injury Skin lesion Screening for cervical cancer Encounter for physical examination New daily persistent headache Obese Back pain GERD (gastroesophageal reflux disease) Impaired glucose tolerance Insomnia Depression with anxiety Mild asthma Smoker Dyslipidemia Essential hypertension Surgical History H/O cataract extraction History of left knee surgery History of tubal ligation History of Family History Mother Hypertension Father Hypertension Brother Colon cancer Family/Other Substance use disorder Mental health disorder Social History Housing: Apartment Alcohol intake: current Alcohol intake frequency: a few times a month Alcohol type: beer Patient Tobacco Use Status: Current someday Tobacco user Tobacco use type: Cigarette Cigarettes Per Day: 1 e-Cigarette/Vaping Use: Never Used Second Hand Smoke Exposure: No service: No Current occupational status: disabled Current occupational exposures/hazards: No Cognitive needs: No Hearing needs: No Vision needs: Yes Coding
--- NOTE | 2023-08-22 11:31 | MHC.OFFVIS ---
Intake Vital Signs 08/22/23 11:36 Height 5 ft 2 in Weight 189 lb BMI 34.6 BP 128/72 Blood Pressure Location Lt brachial Position Sitting Pulse 74 Intake Visit Reasons: s/p egd/sigmoid Mcmanus Presser Machine Required: Yes Presser Machine Name: [facility] Allergies gabapentin Allergy (Intermediate, Verified 08/22/23 11:35) syncope metformin Allergy (Intermediate, Verified 08/22/23 11:35) diarrhea, headache, vomiting morphine [MORPHINE] Allergy (Intermediate, Verified 08/22/23 11:35) ITCH, pruritus lactose [Lactose] Adverse Reaction (Intermediate, Verified 08/22/23 11:35) GAS,DIARRHEA Environmental Allergy (Intermediate, Uncoded 08/18/23 11:25) SNEEZING, ITCY EYES Condoms Latex Lubricated Allergy (Mild, Uncoded 08/18/23 11:25) rash Medication List - Last Reconciled 08/22/23 by Alexandra Meredith PA-C albuterol sulfate 2.5 mg (3 mL) inhalation Q6H PRN 30 days bisacodyl (Dulcolax (bisacodyl)) 20 mg (4 x 5 mg) PO ONCE 1 day cholecalciferol (vitamin D3) 25 mcg PO DAILY 90 days clonazepam 0.5 mg PO DAILY PRN epinephrine (EpiPen) 0.3 mg (0.3 mL) IM Q4H PRN 30 days fluticasone propionate 50 mcg/actuation 1 spray intranasal DAILY 30 days hydrochlorothiazide 25 mg PO DAILY 90 days ketotifen fumarate 0.025%(0.035%) (Eye Itch Relief) 1 drp ophthalmic (eye) BID 7 days lisinopril 40 mg PO DAILY 90 days meclizine 25 mg PO DAILY PRN 30 days montelukast 10 mg PO DAILY 90 days nebulizers (AeroEclipse II Nebulizer) As directed omega 4-hbu-xio-fish oil 1,000 mg (120 mg-180 mg) (Fish Oil) 1 cap PO DAILY omeprazole 20 mg PO DAILY 90 days polyethylene glycol 3350 (Miralax) 238 grams PO ONCE PRN 1 day Shower Chair As directed Ventolin HFA 90 mcg/actuation (albuterol sulfate) 2 puffs PO Q6H PRN NS ziprasidone HCl 20 mg PO BID HPI HPI Comments History of Present Illness Details 62-year-old female personal history of colon polyps follows up after recent EGD colonoscopy with polypectomy She tolerated procedures well Discussed procedure report, pathology recommendation Opportunity for questions Patient seen with animal surgeon She has no GI or general complaints [facility] Medical History (Updated 08/22/23 @ 12:11 by Alexandra Meredith PA-C) Bladder wall thickening Mild major depression Dysuria Abnormal finding on ultrasound Abnormal ultrasound of ovary Abnormal ultrasound of bladder Encounter for screening colonoscopy Pelvic pressure in female Well woman exam Thoracic spine pain Lumbar pain Neck pain Head injury Skin lesion Screening for cervical cancer Encounter for physical examination New daily persistent headache Obese Back pain GERD (gastroesophageal reflux disease) Impaired glucose tolerance Insomnia Depression with anxiety Mild asthma Smoker Dyslipidemia Essential hypertension Surgical History H/O cataract extraction History of left knee surgery History of tubal ligation History of Family History Mother Hypertension Father Hypertension Brother Colon cancer Family/Other Substance use disorder Mental health disorder Social History Housing: Apartment Alcohol intake: current Alcohol intake frequency: a few times a month Alcohol type: beer Patient Tobacco Use Status: Current someday Tobacco user Tobacco use type: Cigarette Cigarettes Per Day: 1 e-Cigarette/Vaping Use: Never Used Second Hand Smoke Exposure: No service: No Current occupational status: disabled Current occupational exposures/hazards: No Cognitive needs: No Hearing needs: No Vision needs: Yes Review of Systems Const All systems reviewed & are unremarkable except as noted in HPI and below Physical Exam Vital Signs: Last Vital Signs Pulse 74 08/22/23 11:36 BP 128/72 08/22/23 11:36 BMI result Body Mass Index 34.6 Const General: cooperative, healthy appearing, comfortable and no acute distress Orientation/consciousness: patient oriented x3 Limitations: language barrier Resp Effort & Inspection: normal respiratory effort and able to speak in complete sentences Neuro General: patient oriented x3 Extrem General: Yes full ROM Results Reviewed Results Reviewed: mpression and Post Procedure Diagnosis: Endoscopy Findings: gastritis Colonoscopy Findings: diverticulosis colon polyp internal hemorrhoids Plan: Await Pathology results Repeat Colonoscopy in 1-2 years due to fair left sided prep or earlier if clinically indicated High fiber diet leaflet avoid straining at stool, epsom salts and sitz bath, anusol supps or cream if h pylori pos then treat Addendum Addendum #1 (C): Additional tissue levels examined: Consistent with hyperplastic polyp. A sessile serrated lesion without dysplasia cannot be excluded in any residual lesion. Follow-up warranted. Electronically Signed By: Rose Hairston 08/17/23 0907 Diagnosis A. Stomach, biopsy: Gastric antral mucosa with congestion, mild reactive changes, and focal minimal chronic inactive inflammation; negative for H pylori, intestinal metaplasia and dysplasia. B. Esophagus, distal, biopsy: Squamous mucosa with rare fragment of columnar epithelium (not present on deeper levels) with no specific change; negative for intestinal metaplasia and dysplasia. C. Colon, cecal polyp: Colonic mucosa with no specific change on initial levels (see comment). D. Colon, prominent cecal fold, biopsy: Colonic mucosa with no specific change. Comment: (C): Additional deeper levels are pending; addendum to follow. Clinical History Pre-Op Dx: GERD without esophagitis Post-Op Dx: Gastritis, colon polyp, diverticulosis, hemorrhoids. Microscopic Description Microscopic sections reviewed. Immunostain for H. pylori on A is negative. AB/PAS on A is negative for intestinal metaplasia. Controls stain appropriately. Material Received A. Stomach bx B. Distal esophagus bx C. Cecal polyp Patient: Kelli Chavarria Age/Sex: 62/[id number] MR#: [id number] Page 1 of 2 Assessment & Plan Assessment & Plan (1) Sessile colonic polyp: Code(s): K63.5 - Polyp of colon (2) Diverticulosis of colon: Code(s): K57.30 - Diverticulosis of large intestine without perforation or abscess without bleeding Plan: Foods to avoid HFD (3) History of colon polyps: Code(s): Z86.010 - Personal history of colonic polyps Plan: polyp 2023- as well (4) GERD (gastroesophageal reflux disease): Comment: no HP Code(s): K21.9 - Gastro-esophageal reflux disease without esophagitis Plan: continue ppi Plan Recall colon 1-2 years Patient Instructions: 62-year-old female personal history colon polyps Repeat asymptomatic colonoscopy 1-2 year seeds nuts , corn ETC Maintain high-fiber diet Foods to avoid such as Encouraged to call questions or concerns Coding Level of Care Code Est Pt Level 3 (43935) Diagnoses Sessile colonic polyp K63.5 Diverticulosis of colon K57.30 History of colon polyps Z86.010 GERD (gastroesophageal reflux disease) K21.9
[2023-08-22 11:36] VITALS: BP 128/72; PULSE 74; BMI 34.6
== END 2023-08-22 13:45 | disposition home or self-care (01) ==
PROVIDERS: PCP Internal Medicine; Visit Provider Physician Assistant
DX: K63.5 Polyp of colon (principal); K57.30 Diverticulosis of large intestine without perforation or abscess without bleeding; Z86.010 Personal history of colon polyps; K21.9 Gastro-esophageal reflux disease without esophagitis
CPT/HCPCS: 99213

== ENCOUNTER → 2023-08-22 11:06 | Outpatient (BNVA) | payer OTHER, SELFPAY | PROVIDERS: PCP Internal Medicine; Visit Provider Physician Assistant | DX: K63.5 Polyp of colon (principal); K57.30 Diverticulosis of large intestine without perforation or abscess without bleeding; K21.9 Gastro-esophageal reflux disease without esophagitis; Z86.010 Personal history of colon polyps | CPT/HCPCS: 99212 ==

== ENCOUNTER 2023-09-15 10:33 | Outpatient (REF) | payer OTHER, SELFPAY ==
--- NOTE | ~2023-09-15 | US_ITS ---
EXAMINATION: US RETROPERITONEAL LIMITED (RENAL ONLY) CLINICAL INFORMATION: Disorder of the urinary system, unspecified. COMPARISON: None available. TECHNIQUE: Real-time imaging of the kidneys. Limited visualization due to bowel gas. FINDINGS: RIGHT KIDNEY: 11.5 x 4.5 x 5.1 cm (SAG x AP x TRV). No hydronephrosis. No renal calculi. Renal cortical thickness is normal. Limited visualization. LEFT KIDNEY: 11.3 x 5.4 x 5.5 cm (SAG x AP x TRV). No hydronephrosis. No renal calculi. Renal cortical thickness is normal. Limited visualization. US/US renal BI IMPRESSION: No hydronephrosis. No renal calculi. Renal cortical thickness is normal. Limited visualization.
== END 2023-09-15 10:34 | disposition home or self-care (01) ==
LOC: HO.US 10:33
PROVIDERS: PCP Internal Medicine; Visit Provider Urology
DX: N39.9 Disorder of urinary system, unspecified (principal)
CPT/HCPCS: 76775

== ENCOUNTER 2024-05-30 07:33 | Outpatient (REF) | payer OTHER, SELFPAY ==
[2024-05-30 09:15] LABS: Alanine Aminotransferase 25 U/L (0-31); Albumin Level 4.2 g/dL (3.5-5.0); Alkaline Phosphatase 99 U/L (39-117); Anion Gap 15 (12-20); Aspartate Amino Transferase 30 U/L (5-31); Bilirubin Total 0.6 mg/dL (0.0-1.0); Blood Urea Nitrogen 10 mg/dL (9-16); Calcium 9.9 mg/dL (8.4-10.2); Carbon Dioxide 28 mmol/L (22-29); Chloride 105 mmol/L (96-108); Cholesterol 162 mg/dL (<200); Estimated Glomerular Filt Rate > 60; Glucose Fasting 114 mg/dL (60-99); HDL Cholesterol 60 mg/dL (>40); LDL Cholesterol Calculated 78 mg/dL (<100); Potassium 4.9 mmol/L (3.3-5.1); Sodium 143 mmol/L (135-145); Total Protein 7.6 g/dL (6.5-8.0); Triglycerides 124 mg/dL (<150)
[2024-05-30 09:39] LABS: Vitamin D 25-OH Total 45.9 ng/mL (>30)
== END 2024-05-30 07:34 | disposition home or self-care (01) ==
LOC: HO.LAB 07:33
PROVIDERS: PCP Internal Medicine; Visit Provider Internal Medicine
DX: Z00.00 Encounter for general adult medical examination without abnormal findings (principal); E55.9 Vitamin D deficiency, unspecified; E78.5 Hyperlipidemia, unspecified
CPT/HCPCS: 36415; 80053; 80061; 82306

== ENCOUNTER 2024-06-14 10:27 | Outpatient (AMB) | payer OTHER, SELFPAY ==
--- NOTE | 2024-06-14 10:39 | A.OFFPC_ITS ---
Vital Signs 06/14/24 10:40 Height 5 ft 2 in Weight 204 lb BMI 37.3 BP 130/70 Blood Pressure Location Lt brachial Position Sitting Intake Visit Reasons: Annual Exam - see comments Intake Note: Patient here for an annual physical exam Director Fraud Required: Yes Director Fraud Language: Medical Transcription Radiology Name: Porsche Muro MD Information Interpreted: non-clinical & clinical Accompanied by: Self / Same As Patient Allergies gabapentin Allergy (Intermediate, Verified 06/14/24 10:56) syncope metformin Allergy (Intermediate, Verified 06/14/24 10:56) diarrhea, headache, vomiting morphine [MORPHINE] Allergy (Intermediate, Verified 06/14/24 10:56) ITCH, pruritus lactose [Lactose] Adverse Reaction (Intermediate, Verified 06/14/24 10:56) GAS,DIARRHEA Environmental Allergy (Intermediate, Uncoded 06/14/24 10:56) SNEEZING, ITCY EYES Condoms Latex Lubricated Allergy (Mild, Uncoded 06/14/24 10:56) rash Medication List - Last Reconciled 06/14/24 by Porsche Muro MD albuterol sulfate 2.5 mg (3 mL) inhalation Q6H PRN 30 days cholecalciferol (vitamin D3) 25 mcg PO DAILY 90 days clonazepam 0.5 mg PO DAILY PRN epinephrine (EpiPen) 0.3 mg (0.3 mL) IM Q4H PRN 30 days fluticasone propionate 50 mcg/actuation 1 spray intranasal DAILY 30 days hydrochlorothiazide 25 mg PO DAILY 90 days lisinopril 40 mg PO DAILY 90 days meclizine 25 mg PO DAILY PRN 30 days melatonin ER 10 mg PO BEDTIME montelukast 10 mg PO DAILY 90 days nebulizers (AeroEclipse II Nebulizer) As directed omeprazole 20 mg PO DAILY 90 days Shower Chair As directed Ventolin HFA 90 mcg/actuation (albuterol sulfate) 2 puffs PO Q6H PRN NS ziprasidone HCl 40 mg PO BID Tobacco use date assessed: 06/14/24 Dental Screening Dental Screen Date: 06/14/24 Did you have a dental visit in the last 12 months?: Yes Did you have a dental problem in the last 6 months where you did not have access to dental care?: No Was dental information given to patient?: Patient has dentist HPI HPI Comments History of Present Illness Details The patient is a 63-year-old female presenting for her physical exam. She has essential hypertension, managed with lisinopril and hydrochlorothiazide, which are reportedly working well. Additionally, she has a history of depression with anxiety, for which she takes clonazepam as prescribed by her psychiatrist. The patient also experiences dizziness managed with meclizine. She has a history of knee pain, which appears to be aggravated by weight issues, and was exacerbated after cataract surgery on the left knee. Her past medical history is significant for colon cancer, treated with surgery, and she reports left-sided knee pain post-surgery. The patient acknowledges episodes of GERD, medicated currently with omeprazole. She is also prediabetic, suggested with a recent glucose reading of 114 mg/dL attributed in part to dietary indiscretions. There is a past surgical history of section and bilateral tubal ligation. She is a smoker, roughly three cigarettes a day, and occasionally consumes alcohol in the form of beers, which she tries to limit to fewer than six in a sitting. Her hyperlipidemia appears controlled at the moment along with sufficient vitamin D levels. FORMERLY [facility] Medical History (Updated 06/14/24 @ 15:36 by Porsche Muro MD) Encounter for physical examination Bladder wall thickening Mild major depression Dysuria Abnormal finding on ultrasound Abnormal ultrasound of ovary Abnormal ultrasound of bladder Encounter for screening colonoscopy Pelvic pressure in female Well woman exam Thoracic spine pain Lumbar pain Neck pain Head injury Skin lesion Screening for cervical cancer New daily persistent headache Obese Back pain GERD (gastroesophageal reflux disease) Impaired glucose tolerance Insomnia Depression with anxiety Mild asthma Smoker Dyslipidemia Essential hypertension Surgical History H/O cataract extraction History of left knee surgery History of tubal ligation History of Family History Mother Hypertension Father Hypertension Brother Colon cancer Family/Other Substance use disorder Mental health disorder Social History Housing: Apartment Alcohol intake: current Alcohol intake frequency: a few times a month Alcohol type: beer Patient Tobacco Use Status: Current everyday Tobacco user Tobacco use type: Cigarette Cigarettes Per Day: 3 e-Cigarette/Vaping Use: Never Used Second Hand Smoke Exposure: No service: No Current occupational status: disabled Current occupational exposures/hazards: No Cognitive needs: No Hearing needs: No Vision needs: Yes Questionnaire PHQ-9 Over the last 2 weeks, how often have you been bothered by any of the following problems? 1. Little interest or pleasure in doing things: nearly every day 2. Feeling down, depressed, or hopeless: nearly every day 3. Trouble falling or staying asleep, or sleeping too much: nearly every day 4. Feeling tired or having little energy: more than half the days 5. Poor appetite or overeating: nearly every day 6. Feeling bad about yourself - or that you are a failure or have let yourself or your family down: not at all 7. Trouble concentrating on things, such as reading the newspaper or watching television: not at all 8. Moving or speaking so slowly that other people could have noticed. Or the opposite - being so fidgety or restless that you have been moving around a lot more than usual: several days 9. Thoughts that you would be better off or of hurting yourself in some way: not at all Total score: 15 Depression Screening Interpretation: Positive (no suicidal thoughts) Depression Screening Follow-up: Existing condition, In treatment, Community Mental Health Worker F/U and Follow-up Visit Requested Depression Screening Done: Yes 39358 - PHQ-9 Billing: Yes Source: Developed by Drs. Jj Smart, Wendi Rivera, Demian Gallego and colleagues, with an educational keila from [employer]. Thrive Questionnaire Date Thrive assessed: 06/14/24 I am a: Patient What is your living situation today?: I have a steady place to live Within the past 12 months, did the food you bought not last and you didn't have the money to get more?: Never true Within the past 12 months, did you worry whether your food would run out before you got money to buy more?: Never true Do you have trouble paying for medicines?: No Do you have trouble getting transportation to medical appointments?: No Do you have trouble paying your heating and electricity bill?: No Do you have trouble taking care of your child, family member or friend?: Yes Do you have trouble with day-to-day activities such as bathing, preparing meals, shopping, managing finances, etc.?: No Are you currently unemployed and looking for a job?: No Are you interested in more education?: No Please select the resources that you would like help with: None Currently or been in a relationship where the following occur: I choose not to answer THRIVE Score: 0 AUDIT C Alcohol Use Questionnaire (AUDIT-C) 1. How often do you have a drink containing alcohol?: 2-4 times a month 2. How many drinks containing alcohol do you have on a typical day when you are drinking?: 5 or 6 3. How often do you have six or more drinks on one occasion?: Weekly Total Score: 7 FRANCISCO-7 AMB Questionnaire FRANCISCO-7 Date FRANCISCO - 7 assessed: 06/14/24 Feeling nervous, anxious, or on edge: 3 = Nearly every day Not being able to stop or control worryin = Several days Worrying too much about different things: 2 = More than half the days Trouble relaxin = Not at all Being so restless that it is hard to sit still: 1 = Several days Becoming easily annoyed or irritable: 1 = Several days Feeling afraid as if something awful might happen: 2 = More than half the days Total FRANCISCO-7 score (0-4 normal; 5-9 mild; 10-14 moderate; 15-21 severe): 10 Source: Developed by Drs. Jj Smart, Wendi Rivera, Demian Gallego and colleagues, with an educational keila from [employer]. FRANCISCO-7 Assessment Billing FRANCISCO-7 Assessment Tool: FRANCISCO-7 Assessment 24092 Review of Systems Const All systems reviewed & are unremarkable except as noted in HPI and below Card Denies chest pain at rest, Denies chest pain with activity, Denies edema, Denies irregular heart rhythm, Denies claudication, Denies dyspnea, Denies dyspnea on exertion, Denies orthopnea, Denies paroxysmal nocturnal dyspnea and Denies slow heart rate Resp Denies cough, Denies dyspnea and Denies dyspnea on exertion Physical exam (Primary Care) Vital Signs: Last Vital Signs BP 130/70 06/14/24 10:40 BMI result Body Mass Index 37.3 BMI Assessment/Plan discussion: High BMI High, discussed plan: lifestyle, weight reduction, dietary, physical activity and alcohol moderation Tobacco/Smoking Status: Tobacco use Status Tobacco use date assessed 06/14/24 06/14/24 10:49 Patient Tobacco Use Status Current everyday Tobacco 06/14/24 10:49 Tobacco use type Cigarette 06/14/24 10:49 e-Cigarette/Vaping Use Never Used 06/14/24 10:49 Are you ready to quit: No Tobacco cessation counseling provided: Yes Items discussed: Nicotine replacement and QuitWorks Relapse Prevention: discussed the importance of a supportive environment, discussed extending NRT, discussed negative mood or depression after quitting, weight gain after smoking is common and discussed dietary, exercise and/or lifestyle changes Number of minutes spent counselin CPT code: 45714 - 4-10 Minutes PHQ-9: PHQ-9 Score PHQ-9: Total score 15 06/14/24 12:51 Depression Screening Interpretation: Positive (no suicidal thoughts) Depression Screening Follow-up: Existing condition, In treatment, Community Mental Health Worker F/U and Follow-up Visit Requested Thrive Assessment: Date of Thrive Assessment Date Thrive assessed 06/14/24 06/14/24 10:49 Currently or been in a relationship where the following occur: I choose not to answer HENNV Head: Yes normal to inspection, Yes normocephalic and Yes atraumatic Ears: external ears normal Eyes General: appearance normal, both eyes and all related structures Eyelids: Yes eyelids normal Conjunctivae: conjunctivae normal Neck Neck: Yes normal visual inspection and Yes supple Resp Effort & Inspection: normal respiratory effort Auscultation: clear to auscultation bilaterally Cardio Jugular venous distension: no JVD Rate: regular rate Rhythm: regular rhythm Heart sounds: S1 normal heart sound present and S2 normal heart sound present GI Inspection: Yes normal to inspection Palpation (GI): Soft to palpation and nontender Auscultation: normal bowel sounds Skin General skin exam: no rashes or lesions noted Neuro General: no focal motor deficits Extrem General: Yes full ROM Psych Appearance: grossly normal Office Procedures Flu Questionnaire Does the patient have a severe egg allergy?: No Immunizations Fluarix Triv [id number] (PF) 45 mcg (15 mcg x 3)/0.5 mL IM syringe Performing Provider: Porsche Muro MD [facility] [place] Documented (not given) by: JEAN CARLOS Lagunas on 06/14/24 11:14 Reason Not Given: Patient Refused Coding Level of Care Code Est Pt Level 3 (27377) Est Pt Prev Care 40-64y(10738) Diagnoses Encounter for physical examination Z00.00 Mild recurrent major depression F33.0 Polyarthralgia M25.50 Additional Codes FRANCISCO-7 Assessment Billing - FRANCISCO-7 Assessment Tool: FRANCISCO-7 Assessment 20874 ([id number]) PHQ-9 - 39629 - PHQ-9 Billing: Yes ([id number]) Vital Signs *Quality* - CPT code: 53047 - 4-10 Minutes ([id number]) Time Spent (min) 33 Assessment & Plan Assessment & Plan (1) Encounter for physical examination: Code(s): Z00.00 - Encounter for general adult medical examination without abnormal findings Category: Medical (2) Mild recurrent major depression: Code(s): F33.0 - Major depressive disorder, recurrent, mild Category: Medical (3) Polyarthralgia: Code(s): M25.50 - Pain in unspecified joint Category: Medical Plan - Continue current medications for hypertension and GERD. - Schedule for a follow-up mammogram. - Recommend adherence to dietary modifications and increased physical activity to address obesity and knee pain. - Consider smoking cessation resources. - Maintain current psychiatric medications and follow-ups with psychiatry. - Recommend dental consultation for jaw and teeth discomfort. - Encourage follow-up on blood glucose levels. Patient was informed and verbally consented to the use of an ambient scribe for clinic note documentation during this visit. I discussed with the patient the importance of continual monitoring of blood pressure and glucose levels, given her prediabetes and hypertension. We reviewed management strategies for these conditions, including medication adherence and lifestyle changes. I advised her on weight management and the positive impact it can have on her knee pain and general health. We addressed her smoking habits and explored options for cessation support. I emphasized the importance of completing missed mammograms for comprehensive health maintenance. We also reviewed her current medication regimen, ensuring her understanding of its purpose and expected outcomes. I encouraged regular exercise and provided anticipatory guidance on dietary changes to improve her overall health status. Orders: Orders Influenza [id number] Immunization Today Z23 - Encounter for immunization Medications: New acetaminophen ER 650 mg PO Q8H 30 days PRN 90 tabs 3RF pain Refilled meclizine 25 mg PO DAILY 30 days PRN 30 tabs 1RF dizziness Patient Instructions: - Continue taking blood pressure and psychiatric medications as prescribed. - Adhere to dietary changes focusing on reduced carbohydrate intake. - Aim for 30 minutes of exercise five times a week. - Schedule and attend the missed mammogram. - Follow up with glucose monitoring as suggested. - Seek advice on smoking cessation. - Continue to use inhalers and meclizine as needed. - Visit the dentist for jaw and tooth discomfort. - Monitor weight and aim for gradual weight reduction.
[2024-06-14 10:40] VITALS: BP 130/70; BMI 37.3
--- OUTSIDE RECORDS SUMMARY | 2024-06-14 12:20 | XMS_ITS | Clinical Summary ---
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 Name Role Phone System, Provider Not In Primary Care Provider Un available Allergies No known active allergies Medications No known medications Immunizations Name Administration Dates Next Due Tdap 10/15/2022 Social History Tobacco Use Types Packs/Day Years Used Date Smoking Tobacco: Every Day Cigarettes Alcohol Use Standard Drinks/Week Comments Yes 0 (1 standard drink = 0.6 oz pur e alcohol) social Sex and Gender Information Value Date Recorded Sex Assigned at Female 02/17/2023 10:24 AM EDT Gender Identity Female 02/17/2023 10:24 AM EDT Sexual Orientation Heterosexual (straight) 02/17 10:24 AM EDT Last Filed Vital Signs Vital Sign Reading Time Taken Comments Blood Pressure 128/82 10/15/2022 10:47 AM EDT Pulse 87 10/15/2022 10:47 AM EDT Temperature 36.8 ??C (98.2 ??F) 10/15/2022 10:47 AM E DT Respiratory Rate 18 10/15/2022 10:47 AM EDT Oxygen Saturation 98% 10/15/2022 10:47 AM EDT Inhaled Oxygen Concentration - - Weight 83.6 kg (184 lb 4.9 oz) 10/15/2022 10:40 AM EDT Height - - Body Mass Index - - Plan of Treatment Health Maintenance Due Date Last Done Comments Hepatitis C Virus Screening 1961 Pneumococcal Vaccine: Pediat sri (0-5 Years) and At-Risk Patients (6 to 49 Years) (1 of 2 - PCV) 12/14/1967 HIV Screening 1974 Pneumococcal Vaccines 50+ (1 of 2 - PCV) 1980 Pap Smear (Ages 21-65) 1982 Mammogram 2001 Colonoscopy 2006 Zoster (Shingles) Vaccine (1 of 2) 12/14/2011 Influenza Vaccine 12/22/2023 COVID-19 Vaccine (1 - 2023-2 5 season) 2024 DTaP/Tdap/Td Vaccines (2 - T d or Tdap) 10/15/2032 10/15/2022 RSV Vaccine 60 years and old er and Patients (1 - 1-dose 75+ series) 2036 Hepatitis B Vaccines Aged Out No long er eligible based on patient's age to complete this topic Care Teams Robotic Machine Tender Production Relationship Specialty Start Date End Date System, Provider Not In PCP - General 10/15/22
== END 2024-06-14 11:07 | disposition home or self-care (01) ==
PROVIDERS: PCP Internal Medicine; Visit Provider Internal Medicine
DX: Z00.00 Encounter for general adult medical examination without abnormal findings (principal); F33.0 Major depressive disorder, recurrent, mild; M25.50 Pain in unspecified joint; Z23 Encounter for immunization

== ENCOUNTER → 2024-06-14 10:27 | Outpatient (BNVA) | payer OTHER, SELFPAY | PROVIDERS: PCP Internal Medicine; Visit Provider Internal Medicine | DX: Z00.00 Encounter for general adult medical examination without abnormal findings (principal); F33.0 Major depressive disorder, recurrent, mild; M25.50 Pain in unspecified joint | CPT/HCPCS: 96127; 99212; 99396 ==

== ENCOUNTER 2024-11-06 09:39 | Outpatient (AMB) | payer OTHER, SELFPAY ==
--- NOTE | 2024-11-06 09:48 | A.OFFVIS_ITS ---
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 Required: No Information Interpreted: non-clinical & clinical General Maintenance Helper: General Maintenance Helper Present (Saranya Kramer JEAN CARLOS) Accompanied by: Self / Same As Patient Allergies gabapentin Allergy (Intermediate, Verified 11/06/24 09:53) syncope metformin Allergy (Intermediate, Verified 11/06/24 09:53) diarrhea, headache, vomiting morphine [MORPHINE] Allergy (Intermediate, Verified 11/06/24 09:53) ITCH, pruritus lactose [Lactose] Adverse Reaction (Intermediate, Verified 11/06/24 09:53) GAS,DIARRHEA Environmental Allergy (Intermediate, Uncoded 11/06/24 09:53) SNEEZING, ITCY EYES Condoms Latex Lubricated Allergy (Mild, Uncoded 11/06/24 09:53) rash Post menopausal: Yes HPI Comments Details: Presenting for annual exam. No complaints. Last Pap/HPV was negative in 03/14 Last Mammogram was BI-RADS 2 in 04/14 Last Colonoscopy was in 08/13, the recommendation was to repeat in 1-2 years [facility] Medical History (Updated 11/06/24 @ 09:53 by Louis García MD) Well woman exam Encounter for physical examination Bladder wall thickening Mild major depression Dysuria Abnormal finding on ultrasound Abnormal ultrasound of ovary Abnormal ultrasound of bladder Encounter for screening colonoscopy Pelvic pressure in female Thoracic spine pain Lumbar pain Neck pain Head injury Skin lesion Screening for cervical cancer New daily persistent headache Obese Back pain GERD (gastroesophageal reflux disease) Impaired glucose tolerance Insomnia Depression with anxiety Mild asthma Smoker Dyslipidemia Essential hypertension Surgical History H/O cataract extraction History of left knee surgery History of tubal ligation History of Family History Mother Hypertension Father Hypertension Brother Colon cancer Family/Other Substance use disorder Mental health disorder Social History Housing: Apartment Alcohol intake: current Alcohol intake frequency: a few times a month Alcohol type: beer Patient Tobacco Use Status: Current everyday Tobacco user Tobacco use type: Cigarette Cigarettes Per Day: 3 e-Cigarette/Vaping Use: Never Used Second Hand Smoke Exposure: No service: No Current occupational status: disabled Current occupational exposures/hazards: No Cognitive needs: No Hearing needs: No Vision needs: Yes Female Reproductive History Menstrual control method: permanent sterilization Menopause type: natural Date of last pap smear: 02/22/23 Date of Mammogram: 04/06/23 Review of Systems Const All systems reviewed & are unremarkable except as noted in HPI and below Card Reports as per HPI Resp Reports as per HPI GI Reports as per HPI and Reports no additional complaints Reports as per HPI Physical Exam Vital Signs: Last Vital Signs BP 124/82 11/06/24 09:52 BMI result Body Mass Index 37.9 Const General: cooperative, healthy appearing and comfortable Chest Chest palpation & inspection: normal inspection of the chest and normal palpation of entire chest wall Breast/axilla inspection: normal inspection of the breasts and normal inspection of the axillae Breast/axilla palpation: normal palpation of the breasts, normal palpation of the axillae and no axillary lymphadenopathy Resp Effort & Inspection: normal respiratory effort Auscultation: clear to auscultation bilaterally Percussion: percussion normal Cardio Palpation: normal PMI Rate: regular rate Rhythm: regular rhythm Heart sounds: no murmurs and no rubs Peripheral pulses: Peripheral pulses 2+ throughout GI Inspection: Yes normal to inspection Palpation (GI): Soft to palpation, nontender, no guarding, not rigid and No hepatosplenomegaly present Percussion: Yes normal to percussion Auscultation: normal bowel sounds Rectal Exam - Female: deferred General: Yes bladder normal to palpation External Female Exam: No lesion Speculum Exam - Vagina: normal appearance of the vagina, normal palpation, normal vaginal discharge and not erythematous Speculum Exam - Cervix: normal appearance of the cervix and normal palpation Bimanual exam- vagina & uterus: normal bimanual exam, normal palpation, uterine size normal, bladder normal to palpation, consistency normal and normal palpation Bimanual Exam- Adnexa, other: normal adnexae, no masses and no tenderness Assessment & Plan Assessment & Plan (1) Well woman exam: Code(s): Z01.419 - Encounter for gynecological examination (general) (routine) without abnormal findings Category: Medical Plan: Co testing not indicated this year. Counseled the patient about the recommended dietary allowance of 1200 mg of Calcium & 600 IU of vitamin D. Mammogram ordered. The patient was referred to GI for screening colonoscopy . The patient was instructed to perform monthly self-breast exams and schedule annual exam in a year. All questions answered and the patient verbalized understanding. Orders: Orders MM tomosynthesis screening BI Today Z12.31 - Encounter for screening mammogram for malignant neoplasm of breast Referrals Gastroenterology Referral Z12.11 - Encounter for screening for malignant neoplasm of colon Coding Level of Care Code Est Pt Prev Care 40-64y(17263) Diagnoses Well woman exam Z01.419
[2024-11-06 09:52] VITALS: BP 124/82; BMI 37.9
--- OUTSIDE RECORDS SUMMARY | 2024-11-06 10:33 | XMS_ITS | Clinical Summary ---
Author Organization [facility] Address [address] [place] [address] [address] [place] [address] Care Team Providers Care Senior Game Developer Name Role Phone Unavailable Primary Care Provider Unavailabl e Immunizations Immunization Administration Dates Next Due Influenza injectable quadriv alent preservative free 02/16/2023 Influenza, IIV3, injectable 01/29/2011,0 01/14/2010,02/10/2009,03/18,03/17/2007 Influenza, Split (incl. manas fied surface antigen) 03/19/2013,03/10/2012 Influenza, seasonal, injecta ble, preservative free 01/31/2024 Moderna Covid-19 Vaccine 12+ 05/27/2021,10/24/19 21,09/25/2020 Pneumococcal Polysaccharide PPSV23 12/02/2008 Tdap 10/15/2022,03/10/2012 Social History Tobacco Use Types Packs/Day Years Used Date Smoking Tobacco: Never Assessed Comments Unknown Sex and Gender Information Value Date Recorded Sex Assigned at Female 03/22/2022 10:19 AM EDT Legal Sex Female 10:19 AM EDT Gender Identity Female 03/22/2022 10:19 AM EDT Sexual Orientation Choose not to disclose 2021 10:19 AM EDT Plan of Treatment Health Maintenance Due Date Last Done Comments CT Colonography 1961 Colonoscopy 1961 Colorectal Cancer Screening 1961 Depression Screening 1961 FIT DNA/Cologuard 1961 FIT 1961 FOBT 1961 HIV Screening 1961 Lipid Panel 1961 SDOH Screening 1961 Sigmoidoscopy 1961 Disability Screening 1961 Alcohol/Substance Use Screening 1973 Tobacco Screening 1973 Hepatitis C Screening 12/14/1979 Pap Smear 1982 Cervical Cancer Screening 12/14/1991 HPV/Cotest 12/14/1991 Mammogram 2001 Pneumococcal Vaccine: 50+ Years (2 of 2 - PCV) 12/02/2009 12/02/2008 Zoster Vaccines (1 of 2) 12/14/2011 RSV Patients and Patients Aged 60 years or older (1 - Risk 60-74 years 1-dose series) 2021 COVID-19 Vaccine (4 - 2023- season) 2024 05/27/2021, 10/23/2020, 09/25/2020 DTaP/Tdap/Td Vaccines (3 - Td or Tdap) 10/15/2032 10/15/2022, 03/10/2012 Influenza Vaccine Completed 01/31/2024, , 03/19/2013, Additional history exists HIB Vaccines Aged Out No longer eligi ble based on patient's age to complete this topic HPV Vaccines Aged Out No longer eligi ble based on patient's age to complete this topic Hepatitis A Vaccines Aged Out No long er eligible based on patient's age to complete this topic Hepatitis B Vaccines Aged Out No long er eligible based on patient's age to complete this topic IPV Vaccines Aged Out No longer eligi ble based on patient's age to complete this topic Meningococcal B Vaccine Aged Out No l onger eligible based on patient's age to complete this topic Meningococcal Vaccine Aged Out No sweta leonela eligible based on patient's age to complete this topic RSV under 20 months Aged Out No longe r eligible based on patient's age to complete this topic Rotavirus Vaccines Aged Out No longer eligible based on patient's age to complete this topic Insurance [address] [place] [address] [facility] [address] [place] [id number] [address] [place] [id number] [address] [place] [id number]
== END 2024-11-06 10:11 | disposition home or self-care (01) ==
LOC: HO.HWS 09:39
PROVIDERS: PCP Internal Medicine; Visit Provider Obstetrics & Gynecology
DX: Z01.419 Encounter for gynecological examination (general) (routine) without abnormal findings (principal)
CPT/HCPCS: 99396; 99459

== ENCOUNTER → 2024-11-06 09:39 | Outpatient (BNVA) | payer OTHER, SELFPAY | PROVIDERS: PCP Internal Medicine; Visit Provider Obstetrics & Gynecology | DX: Z01.419 Encounter for gynecological examination (general) (routine) without abnormal findings (principal) | CPT/HCPCS: 99396 ==

== ENCOUNTER 2024-11-16 11:31 | Outpatient (REF) | payer OTHER, SELFPAY ==
--- OUTSIDE RECORDS SUMMARY | 2024-11-16 12:47 | XMS_ITS | Clinical Summary ---
Author Organization [facility] Address [address] [place] [address] 7[address] [place] [address] Care Team Providers Care Branch Lending Officer Name Role Phone Unavailable Primary Care Provider [...] patient's age to complete this topic Insurance [address] [place] [address] [facility] [address] [place] [address] [id number] [address] [place] [address] [id number] [address] [place] [id number]
== END 2024-11-16 11:32 | disposition home or self-care (01) ==
LOC: HO.MAMMO 11:31
PROVIDERS: PCP Internal Medicine; Visit Provider Internal Medicine
DX: Z12.31 Encounter for screening mammogram for malignant neoplasm of breast (principal)
CPT/HCPCS: 77063; 77067

== ENCOUNTER → 2024-11-16 12:30 | Outpatient (BNV) | payer OTHER, SELFPAY | PROVIDERS: PCP Internal Medicine; Visit Provider Internal Medicine | DX: Z12.31 Encounter for screening mammogram for malignant neoplasm of breast (principal) | CPT/HCPCS: 77063; 77067 ==

== ENCOUNTER 2024-12-12 09:35 | Outpatient (AMB) | payer OTHER, SELFPAY ==
--- NOTE | 2024-12-12 09:54 | MHC.PC.OV ---
Vital Signs 12/12/24 10:33 Height 5 ft 2 in Weight 206 lb BMI 37.7 BP 118/80 Blood Pressure Location Lt brachial Position Sitting Intake Visit Reasons: bp,depression Intake Note: Patient here for a follow up BP, Depression Iap Displays Analyst Required: No Accompanied by: Self / Same As Patient Allergies gabapentin Allergy (Intermediate, Verified 12/12/24 11:00) syncope metformin Allergy (Intermediate, Verified 12/12/24 11:00) diarrhea, headache, vomiting morphine (MORPHINE) Allergy (Intermediate, Verified 12/12/24 11:00) ITCH, pruritus lactose (Lactose) Adverse Reaction (Intermediate, Verified 12/12/24 11:00) GAS,DIARRHEA Environmental Allergy (Intermediate, Uncoded 12/12/24 11:00) SNEEZING, ITCY EYES Condoms Latex Lubricated Allergy (Mild, Uncoded 12/12/24 11:00) rash Medication List - Last Reconciled 12/12/24 by Porsche Muro MD acetaminophen ER 650 mg PO Q8H PRN 30 days albuterol sulfate 2.5 mg (3 mL) inhalation Q6H PRN 30 days cholecalciferol (vitamin D3) 25 mcg PO DAILY 90 days clonazepam 0.5 mg PO DAILY PRN epinephrine (EpiPen) 0.3 mg (0.3 mL) IM Q4H PRN 30 days fluticasone propionate 50 mcg/actuation 1 spray intranasal DAILY 30 days hydrochlorothiazide 25 mg PO DAILY 90 days lisinopril 40 mg PO DAILY 90 days meclizine 25 mg PO DAILY PRN 30 days melatonin ER 10 mg PO BEDTIME montelukast 10 mg PO DAILY 90 days nebulizers (AeroEclipse II Nebulizer) As directed omeprazole 20 mg PO DAILY 90 days Shower Chair As directed Ventolin HFA 90 mcg/actuation (albuterol sulfate) 2 puffs PO Q6H PRN NS ziprasidone HCl 40 mg PO BID Tobacco use date assessed: 06/14/24 Dental Screening Dental Screen Date: 06/14/24 HPI HPI Comments History of Present Illness Details The patient is a 63-year-old female presenting with chronic headaches. The headaches have been persistent for approximately six months, occurring daily and affecting the entire head, including the forehead and behind the ears. The patient reports taking Tylenol and Alenia for relief, but the headaches persist. The patient also experiences throat pain and ear discomfort, which have been persistent. She describes a sensation of inflammation and pain in the throat, with associated ear discomfort. Has hypertension well controlled with medications. Has mild major depression follow by Psychiatry. The patient has a history of allergic reactions to gabapentin, morphine, and environmental factors, causing syncope, itching, and rash respectively. She is currently taking Tylenol, vitamin D, clonazepam, and has an Epipen for emergencies. She also has impaired glucose tolerance and this will be monitor. Complains of jaw pain. Preventative care includes regular dental visits, with the last visit confirming healthy teeth. [facility] Medical History New daily persistent headache Well woman exam Encounter for physical examination Bladder wall thickening Mild major depression Dysuria Abnormal finding on ultrasound Abnormal ultrasound of ovary Abnormal ultrasound of bladder Encounter for screening colonoscopy Pelvic pressure in female Thoracic spine pain Lumbar pain Neck pain Head injury Skin lesion Screening for cervical cancer Obese Back pain GERD (gastroesophageal reflux disease) Impaired glucose tolerance Insomnia Depression with anxiety Mild asthma Smoker Dyslipidemia Essential hypertension Surgical History H/O cataract extraction History of left knee surgery History of tubal ligation History of Family History Mother Hypertension Father Hypertension Brother Colon cancer Family/Other Substance use disorder Mental health disorder Social History Housing: Apartment Alcohol intake: current Alcohol intake frequency: a few times a month Alcohol type: beer Patient Tobacco Use Status: Current everyday Tobacco user Tobacco use type: Cigarette Cigarettes Per Day: 5 e-Cigarette/Vaping Use: Never Used Second Hand Smoke Exposure: No service: No Current occupational status: disabled Current occupational exposures/hazards: No Cognitive needs: No Hearing needs: No Vision needs: Yes Questionnaire Thrive Questionnaire Date Thrive assessed: 06/14/24 I am a: Patient What is your living situation today?: I have a steady place to live Within the past 12 months, did the food you bought not last and you didn't have the money to get more?: Never true Within the past 12 months, did you worry whether your food would run out before you got money to buy more?: Never true Do you have trouble paying for medicines?: No Do you have trouble getting transportation to medical appointments?: No Do you have trouble paying your heating and electricity bill?: No Do you have trouble taking care of your child, family member or friend?: Yes Do you have trouble with day-to-day activities such as bathing, preparing meals, shopping, managing finances, etc.?: No Are you currently unemployed and looking for a job?: No Are you interested in more education?: No Please select the resources that you would like help with: None Currently or been in a relationship where the following occur: I choose not to answer THRIVE Score: 0 FRANCISCO-7 AMB Questionnaire FRANCISCO-7 Date FRANCISCO - 7 assessed: 06/14/24 Source: Developed by Drs. Jj Smatr, Wendi Rivera, Demian Gallego and colleagues, with an educational keila from [employer]. Review of Systems Const All systems reviewed & are unremarkable except as noted in HPI and below Card Denies chest pain at rest, Denies chest pain with activity, Denies edema, Denies irregular heart rhythm, Denies claudication, Denies dyspnea, Denies dyspnea on exertion, Denies orthopnea, Denies paroxysmal nocturnal dyspnea and Denies slow heart rate Resp Denies cough, Denies dyspnea and Denies dyspnea on exertion Neuro Denies lack of coordination Physical exam (Primary Care) Vital Signs: Last Vital Signs BP 118/80 12/12/24 10:33 BMI result Body Mass Index 37.7 BMI Assessment/Plan discussion: High BMI High, discussed plan: lifestyle, weight reduction, dietary and physical activity Tobacco/Smoking Status: Tobacco use Status Tobacco use date assessed 06/14/24 12/12/24 09:56 Patient Tobacco Use Status Current everyday Tobacco 12/12/24 10:36 Tobacco use type Cigarette 12/12/24 10:36 e-Cigarette/Vaping Use Never Used 12/12/24 10:36 Thrive Assessment: Date of Thrive Assessment Date Thrive assessed 06/14/24 12/12/24 09:56 Currently or been in a relationship where the following occur: I choose not to answer Resp Effort & Inspection: normal respiratory effort Auscultation: clear to auscultation bilaterally Cardio Jugular venous distension: no JVD Rate: regular rate Rhythm: regular rhythm Heart sounds: S1 normal heart sound present and S2 normal heart sound present Extrem General: Yes full ROM Coding Level of Care Code Est Pt Level 4 (60104) Complex EM visit Add On G2211 Diagnoses Essential hypertension I10 Impaired glucose tolerance R73.02 Mild recurrent major depression F33.0 New daily persistent headache G44.52 Time Spent (min) 22 Assessment & Plan Assessment & Plan (1) Essential hypertension: Code(s): I10 - Essential (primary) hypertension Category: Medical (2) Impaired glucose tolerance: Code(s): R73.02 - Impaired glucose tolerance (oral) Category: Medical (3) Mild recurrent major depression: Code(s): F33.0 - Major depressive disorder, recurrent, mild Category: Medical (4) New daily persistent headache: Code(s): G44.52 - New daily persistent headache (NDPH) Category: Medical Plan The plan for managing the patient's chronic headaches includes prescribing a medication to prevent headaches, which should be taken at night. Magnesium supplementation is also recommended as it may help alleviate headache symptoms. Topamax is considered for headache management, with a note that it may cause drowsiness and potential weight loss. Patient was informed and verbally consented to the use of an ambient scribe for clinic note documentation during this visit. Orders: Orders Lipid Panel 6 Months R73.02 - Impaired glucose tolerance (oral) Vitamin D 25-OH Total 6 Months E55.9 - Vitamin D deficiency, unspecified Comprehensive [place]. Panel Fast 6 Months R73.02 - Impaired glucose tolerance (oral) Referrals Neurology Referral G44.52 - New daily persistent headache (NDPH) Medications: New topiramate 25 mg PO BEDTIME 90 tabs 1RF 90 days sumatriptan succinate do not exceed 8 doses per 24 hrs 25 mg PO Q2-4H PRN 9 tabs 1RF migraine headache 30 days magnesium oxide 400 mg PO BEDTIME 90 caps 1RF 90 days Refilled hydrochlorothiazide 25 mg PO DAILY 90 tabs 1RF 90 days I10 - Essential (primary) hypertension lisinopril 40 mg PO DAILY 90 tabs 1RF 90 days epinephrine (EpiPen) 0.3 mg (0.3 mL) IM Q4H PRN 2 ea 1RF anaphylaxis 30 days
--- OUTSIDE RECORDS SUMMARY | 2024-12-12 10:06 | XMS_ITS | Clinical Summary ---
Author Organization [facility] Address [address] [place] [id number] Care Team Providers Care Community Arts Officer Name Role Phone System, Provider Not In Primary Care Provider Un available Allergies No known active allergies Medications No known medications Immunizations Immunization Administration Dates Next Due Tdap 10/15/2022 Social History Tobacco Use Types Packs/Day Years Used Date Smoking Tobacco: Every Day Cigarettes Alcohol Use Standard Drinks/Week Comments Yes 0 (1 standard drink = 0.6 oz pur e alcohol) social Comments Unknown Sex and Gender Information Value Date Recorded Sex Assigned at Female 02/17/2023 10:24 AM EDT Legal Sex Female 6:34 PM EST Gender Identity Female 02/17/2023 10:24 AM EDT Sexual Orientation Heterosexual (straight) 02/17 10:24 AM EDT Last Filed Vital Signs Vital Sign Reading Time Taken Comments Blood Pressure 128/82 10/15/2022 10:47 AM EDT Pulse 87 10/15/2022 10:47 AM EDT Temperature 36.8 C (98.2 F) 10/15/2022 10:47 AM EDT Respiratory Rate 18 10/15/2022 10:47 AM EDT Oxygen Saturation 98% 10/15/2022 10:47 AM EDT Inhaled Oxygen Concentration - - Weight 83.6 kg (184 lb 4.9 oz) 10/15/2022 10:40 AM EDT Height - - Body Mass Index - - Plan of Treatment Health Maintenance Due Date Last Done Comments Hepatitis C Virus Screening 1961 HIV Screening 1974 Pneumococcal Vaccines 50+ (1 of 2 - PCV) 1980 Pap Smear (Ages 21-65) 1982 Mammogram 2001 Colonoscopy 2006 Zoster (Shingles) Vaccine (1 of 2) 12/14/2011 COVID-19 Vaccine ( - 2023-2 5 season) 2024 Influenza Vaccine 12/21/2024 DTaP/Tdap/Td Vaccines (2 - T d or Tdap) 10/15/2032 10/15/2022 RSV Vaccine 60 years and old er and Patients (1 - 1-dose 75+ series) 2036 Hepatitis B Vaccines Aged Out No long er eligible based on patient's age to complete this topic Insurance MEDICAID OUT OF STATE [facility] [place] GANDHI [id number] Care Teams Community Arts Officer Relationship Specialty Start Date End Date System, Provider Not In PCP - General 10/15/22
[2024-12-12 10:33] VITALS: BP 118/80; BMI 37.7
== END 2024-12-12 11:11 | disposition home or self-care (01) ==
LOC: HO.HMCH 09:36
PROVIDERS: PCP Internal Medicine; Visit Provider Internal Medicine
DX: I10 Essential (primary) hypertension (principal); R73.02 Impaired glucose tolerance (oral); F33.0 Major depressive disorder, recurrent, mild; G44.52 New daily persistent headache (NDPH)

== ENCOUNTER → 2024-12-12 09:35 | Outpatient (BNVA) | payer OTHER, SELFPAY | PROVIDERS: PCP Internal Medicine; Visit Provider Internal Medicine | DX: I10 Essential (primary) hypertension (principal); R73.02 Impaired glucose tolerance (oral); R68.84 Jaw pain; F33.0 Major depressive disorder, recurrent, mild; G44.52 New daily persistent headache (NDPH); E55.9 Vitamin D deficiency, unspecified | CPT/HCPCS: 99212 ==

== ENCOUNTER 2025-04-24 10:37 | Outpatient (AMB) | payer OTHER, SELFPAY ==
--- NOTE | 2025-04-24 10:51 | A.OFFVIS_ITS ---
Vital Signs 04/24/25 10:52 Height 5 ft 2 in Weight 215 lb BMI 39.3 BP 136/82 Blood Pressure Location Rt brachial Position Sitting Pulse 104 H Pulse Source Pulse Oximeter Pulse Oximetry (%) 97 Oxygen Delivery Method Room Air Intake Visit Reasons: 30 m. Anthony recall. Intake Note: Returning pt for recall colo screening q3 years. Mgmt of GERD. CC; C/O GERD + epigastric pain persistence despite current therapy. Also reports concerns involving diarrhea and increased BM frequency which have caused exacerbation of chronic hemorrhoids. Pt denies any rectal bleeding at this time. Electronic Scale Assembler And Tester Required: Yes Electronic Scale Assembler And Tester Services: Electronic Scale Assembler And Tester Offered & Declined Accompanied by: Self / Same As Patient Allergies gabapentin Allergy (Intermediate, Verified 04/24/25 11:00) syncope metformin Allergy (Intermediate, Verified 04/24/25 11:00) diarrhea, headache, vomiting morphine (MORPHINE) Allergy (Intermediate, Verified 04/24/25 11:00) ITCH, pruritus lactose (Lactose) Adverse Reaction (Intermediate, Verified 04/24/25 11:00) GAS,DIARRHEA Environmental Allergy (Intermediate, Uncoded 04/24/25 11:00) SNEEZING, ITCY EYES Condoms Latex Lubricated Allergy (Mild, Uncoded 04/24/25 11:00) rash HPI HPI 30 m. Anthony recall.: Details: UPPER ENDOSCOPY AND COLONOSCOPY 08/11/2023 Endoscopy Findings: gastritis Colonoscopy Findings: diverticulosis colon polyp internal hemorrhoids Plan: Await Pathology results Repeat Colonoscopy in 1-2 years due to fair left sided prep or earlier if clinically indicated High fiber diet leaflet avoid straining at stool, epsom salts and sitz bath, anusol supps or cream if h pylori pos then treat Addendum Addendum #1 (C): Additional tissue levels examined: Consistent with hyperplastic polyp. A sessile serrated lesion without dysplasia cannot be excluded in any residual lesion. Follow-up warranted. Electronically Signed By: Rose Hairston 08/17/23 0907 Diagnosis A. Stomach, biopsy: Gastric antral mucosa with congestion, mild reactive changes, and focal minimal chronic inactive inflammation; negative for H pylori, intestinal metaplasia and dysplasia. B. Esophagus, distal, biopsy: Squamous mucosa with rare fragment of columnar epithelium (not present on deeper levels) with no specific change; negative for intestinal metaplasia and dysplasia. C. Colon, cecal polyp: Colonic mucosa with no specific change on initial levels (see comment). D. Colon, prominent cecal fold, biopsy: Colonic mucosa with no specific change. Comment: (C): Additional deeper levels are pending; addendum to follow. LAST VISIT WITH CHEL BRAXTON 08/22/2023 Plan Recall colon 1-2 years Patient Instructions: 62-year-old female personal history colon polyps Repeat asymptomatic colonoscopy 1-2 year seeds nuts , corn ETC Maintain high-fiber diet Foods to avoid such as Encouraged to call questions or concerns TODAY'S VISIT Patient is here today to discuss going for another endoscopy and colonoscopy. She still is complaining of epigastric pain postprandially depending on what she eats. Patient is trying to avoid spicy food. Occasional postprandial abdominal bloating. Postprandial diarrhea mostly in the morning after coffee. Patient denies melena, hematochezia, unintentional weight loss or ribbon like stools. Patient denies dyspepsia, dysphagia or odynophagia. Patient denies any issues with anesthesia in the past. No history of sleep apnea. Not on any anticoagulation medication. Patient had suboptimal prep last colonoscopy. She will need extra Dulcolax prior to procedure to help her empty her bowels better. Patient denies any cardiac or respiratory symptoms. [facility] Medical History New daily persistent headache Well woman exam Encounter for physical examination Bladder wall thickening Mild major depression Dysuria Abnormal finding on ultrasound Abnormal ultrasound of ovary Abnormal ultrasound of bladder Encounter for screening colonoscopy Pelvic pressure in female Thoracic spine pain Lumbar pain Neck pain Head injury Skin lesion Screening for cervical cancer Obese Back pain GERD (gastroesophageal reflux disease) Impaired glucose tolerance Insomnia Depression with anxiety Mild asthma Smoker Dyslipidemia Essential hypertension Surgical History H/O cataract extraction History of left knee surgery History of tubal ligation History of Family History Mother Hypertension Father Hypertension Brother Colon cancer Family/Other Substance use disorder Mental health disorder Social History Housing: Apartment Alcohol intake: current Alcohol intake frequency: a few times a month Alcohol type: beer Patient Tobacco Use Status: Current everyday Tobacco user Tobacco use type: Cigarette Cigarettes Per Day: 5 e-Cigarette/Vaping Use: Never Used Second Hand Smoke Exposure: No service: No Current occupational status: disabled Current occupational exposures/hazards: No Cognitive needs: No Hearing needs: No Vision needs: Yes Review of Systems Const Denies weight gain and Denies weight loss ENT Reports no additional complaints, Denies dysphagia and Denies odynophagia Card Reports no additional complaints Resp Reports no additional complaints GI Reports abdominal pain (Epigastric), Denies belching, Denies melena, Reports bloating, Denies change in bowel habits, Denies dysphagia, Denies excessive flatus, Denies dyspepsia, Reports heartburn, Denies diarrhea, Reports loose stools, Denies nausea, Denies odynophagia and Denies vomiting Reports no additional complaints Musc Reports no additional complaints Neuro Reports no additional complaints Psych Reports no additional complaints Endo Reports no additional complaints Physical Exam Const General: healthy appearing, no acute distress and well developed Nutritional Appearance: well nourished Orientation/consciousness: patient oriented x3 Resp Effort & Inspection: normal respiratory effort, able to speak in complete sentences, no tracheal deviation and symmetric chest movement Auscultation: clear to auscultation bilaterally Cardio Rate: regular rate GI Inspection: Yes normal to inspection and No distended Palpation (GI): Soft to palpation, not firm, nontender and No hepatosplenomegaly present Auscultation: normal bowel sounds General: Yes no CVA tenderness Back/Spine/Pelvis Back: no CVA tenderness Skin General skin exam: elasticity normal, turgor normal and dry skin Neuro General: patient oriented x3 Psych Appearance: grossly normal Mental Status: mental status grossly normal Assessment & Plan Assessment & Plan (1) History of colon polyps: Code(s): Z86.010 - Personal history of colon polyps Category: Medical (2) GERD (gastroesophageal reflux disease): Code(s): K21.9 - Gastro-esophageal reflux disease without esophagitis Category: Medical Qualifiers: Esophagitis presence: esophagitis presence not specified Qualified Code(s): K21.9 - Gastro-esophageal reflux disease without esophagitis (3) Sessile colonic polyp: Code(s): K63.5 - Polyp of colon Category: Medical (4) Diverticulosis of colon: Code(s): K57.30 - Diverticulosis of large intestine without perforation or abscess without bleeding Category: Medical Plan Patient still reports to have epigastric pain postprandially. Will start her on pantoprazole and stop omeprazole. Continue avoiding dietary triggers and late night snacking. Staying upright for minimum 3 hours after meals discussed with patient. Patient will try increasing fiber in her diet and also she can try [id number] fiber supplement. Patient will be sent for upper endoscopy and colonoscopy. Patient will start 5 days before with Dulcolax. Script sent to pharmacy. What to expect before during and after procedure discussed with patient. Stressed importance of good bowel prep and clear liquid diet day before procedure. Patient will follow-up in the office after the procedure. She was encouraged to call us if she has any GI concerning symptoms. She is agreeable to this plan and verbalizes understanding of instructions. She was given the opportunity to ask questions and all questions answered. Thank you for allowing me to participate in her care Orders: Referrals GI Procedure Notification K21.9 - Gastro-esophageal reflux disease without esophagitis, K57.30 - Diverticulosis of large intestine without perforation or abscess without bleeding, K63.5 - Polyp of colon, Z12.11 - Encounter for screening for malignant neoplasm of colon, Z86.010 - Personal history of colon polyps Medications: New bisacodyl (Dulcolax (bisacodyl)) Start taking 2 tablet every night 7 days before the procedure and 1 day before procedure take 4 tablets at noon time followed by MiraLax prep 10 mg (2 x 5 mg) PO BEDTIME 16 tabs 0RF Z12.11 - Encounter for screening for malignant neoplasm of colon pantoprazole take one tablet half an hour before breakfast 40 mg PO DAILY 30 tabs 2RF K21.9 - Gastro-esophageal reflux disease without esophagitis polyethylene glycol 3350 (Miralax) As directed by gastroenterology department at [facility] 238 grams PO ONCE 238 grams 0RF Z12.11 - Encounter for screening for malignant neoplasm of colon Discontinued omeprazole Discontinued Reason: Doctor's Order 20 mg PO DAILY 90 days 90 caps 3RF Coding Level of Care Code Est Pt Level 4 (35676) Complex visit Add On G2211 Diagnoses History of colon polyps Z86.010 Gastroesophageal reflux disease, unspecified whether esophagitis present K21.9 Esophagitis presence: esophagitis presence not specified Sessile colonic polyp K63.5 Diverticulosis of colon K57.30 Time Spent (min) 40 Comment 30 minutes spent with patient and additional 10 minutes spent reviewing her records
[2025-04-24 10:52] VITALS: BP 136/82; PULSE 104; O2SAT 97; BMI 39.3
--- OUTSIDE RECORDS SUMMARY | 2025-04-24 12:11 | XMS_ITS ---
[facility] Name [facility] Organization Unknown Results Test Name/Text Value Interpretation Date Range Source Ketones Ur Strip-mCnc Negative 02/16/2025 - [facility] Glucose Ur Strip-mCnc Negative 02/16/2025 - [facility] Color Ur Yellow 02/16/2025 [facility] Prot Ur Strip-mCnc Negative 02/16/2025 - [facility] pH Ur Strip 7.0 02/16/2025 5 - 8 [facility] Bilirub Ur Strip-mCnc Negative 02/16/2025 - [facility] Nitrite Ur Ql Strip Negative 02/16/2025 - [facility] Sp Gr Ur Strip <1.006 02/16/2025 1.005 - 1.03 H [facility] Leukocyte esterase Ur Ql Strip Negative 02/16/2025 - [facility] Hgb Ur Ql Strip Negative 02/16/2025 - H[facility] CT Clarity Ur Clear 02/16/2025 [facility] Magnesium SerPl-mCnc 1.8 mg/dL 02/16/2025 1.6 - 2.6 [facility] Bilirub SerPl-mCnc 0.3 mg/dL 02/16/2025 0.3 - 1.2 [facility] ALP SerPl-cCnc 96.0 U/L 02/16/2025 32 - 122 [facility] T Glucose SerPl-mCnc 146.0 mg/dL Above high normal 02/16/2025 74 - 106 [facility] Albumin/Glob SerPl 1.4 Ratio Below low normal 02/16/2025 1.5 - 2.5 [facility] BUN SerPl-mCnc 11.0 mg/dL 02/16/2025 9 - [address] CO2 SerPl-sCnc 26.0 mmol/L 02/16/2025 20 - 31 HH CCT Globulin Ser Calc-mCnc 3.3 g/dL 02/16/2025 1.5 - 3.9 [facility] Creat SerPl-mCnc 0.91 mg/dL 02/16/2025 0.6 - 1 H [facility] Chloride SerPl-sCnc 99.0 mmol/L 02/16/2025 98 - 10 7 [facility] BUN/Creat SerPl 12.0 Ratio 02/16/2025 10 - 25 [facility] CCT Sodium SerPl-sCnc 138.0 mmol/L 02/16/2025 136 - 14 5 [facility] Potassium SerPl-sCnc 3.6 mmol/L 02/16/2025 3.4 - 4.5 [facility] ALT SerPl-cCnc 17.0 U/L 02/16/2025 7 - 35 [facility] T GFR/BSA.pred SerPlBld VNS-SPR-NxEFlc 71.0 02/16/2025 59 - H[facility]CT Prot SerPl-mCnc 8.0 g/dL 02/16/2025 5.7 - 8.[address] Anion Gap Bld-sCnc 12.0 02/16/2025 5 - 15 [facility] AST SerPl-cCnc 23.0 U/L 02/16/2025 - 34 [facility] T Albumin SerPl-mCnc 4.7 g/dL 02/16/2025 3.4 - 4.8 [facility] Calcium SerPl-mCnc 9.8 mg/dL 02/16/2025 8.7 - 10.5 [facility] Delta NO PREVIOUS RESULT 02/16/2025 [facility] Troponin I SerPl DL<=0.01 ng/mL-mCnc 5.0 ng/L 02/16/2025 - 34 [facility] Imm Granulocytes/leuk NFr Bld Auto 0.4 % 02/16/2025 [facility] Basophils num Bld Auto 0.04 Thou/uL 02/16/2025 0 - 0.2 [facility] Lymphocytes/leuk NFr Bld Auto 37.8 % 02/16/2025 [facility] Neutrophils num Bld Auto 5.7 Thou/uL 02/16/2025 2 - 7.5 [facility] Imm Granulocytes num Bld Auto 0.04 Thou/uL 02/16/2025 0 - 0.1 [facility] Eosinophil/leuk NFr Bld Auto 1.4 % 02/16/2025 [facility] Hct VFr Bld Auto 40.2 % 02/16/2025 35 - 47 HH CCT MCH RBC Qn Auto 28.9 pg 02/16/2025 27 - [address] MCHC RBC Auto-mCnc 33.1 g/dL 02/16/2025 30 - 36 [facility] Lymphocytes num Bld Auto 4.11 Thou/uL 02/16/2025 1.5 - 4.5 [facility]CT RDW RBC Auto-Rto 12.7 % 02/16/2025 11.5 - 14.5 [facility] Hgb Bld-mCnc 13.3 g/dL 02/16/2025 11.7 - 15.7 [facility] T Basophils/leuk NFr Bld Auto 0.4 % 02/16/2025 [facility] MCV RBC Auto 87.0 fL 02/16/2025 80 - 100 [facility] Neutrophils/leuk NFr Bld Auto 52.3 % 02/16/2025 [facility] Monocytes/leuk NFr Bld Auto 7.7 % 02/16/2025 [facility] PM[facility] B[facility] Auto 10.0 fL 02/16/2025 7.5 - 12.5 [facility] Eosinophil num Bld Auto 0.15 Thou/uL 02/16/2025 0 - 0.7 [facility] Monocytes num Bld Auto 0.84 Thou/uL 02/16/2025 0.2 - 1.5 [facility] RBC num Bld Auto 4.6 Mil/uL 02/16/2025 4 - 5.4 H [facility] Platelet num Bld Auto 360.0 Thou/uL 02/16/2025 150 - 450 [facility] WBC num Bld Auto 10.9 Thou/uL 02/16/2025 4 - 11 [facility] S pyo DNA Throat Ql PINEDA+probe Detected Abnormal 01/24/2025 - [facility] 2019-nCOV RNA Not Detected 01/24/2025 [facility] Specimen source XXX Nasopharynx 01/24/2025 [facility] Encounters Encounter Type Encounter Reason Primary Diagnosis Location Date Emergency Supraventricular tachycardia, unspecified Supraventricular tachycardia, unspecified [facility] Emergency Streptococcal pharyngitis Streptococcal pharyngitis [facility] Emergency Laceration witho ut foreign body of right wrist, initial encounter [facility] Care Team Organization Name Specialty Phone Email Start Date End Da te [employer] Attendant 01/24/2025 03/18/2025 [employer] [facility] Primary Care 01/24/2025 [employer] [facility] Primary Care 10/15/20222022 [employer] 10/15/2022
--- OUTSIDE RECORDS SUMMARY | 2025-04-24 12:12 | XMS_ITS | Clinical Summary ---
Author Organization [facility] Address [address] [place] [address] Care Team Providers Care Reformatory Attendant Name Role Phone System, Provider Not In Primary Care Provider Un available Allergies No known active allergies Medications hydroCHLOROthia zide (HYDRODIURIL) 25 MG tablet TOME 1 TABLETA POR V A ORAL TODOS LOS D 5 Active EPINEPHrine 0.3 mg/0.3 mL IJ auto-injection 5 Active clonazePAM (KlonoPIN) 0.5 MG tablet TAKE 1 TABLET BY MOUTH SINGLE DOSE NEEDED FOR SEVERE ANXIETY ONLY 5 Active D3-1000 25 MCG (1000 UT) capsule TOME 1 C PSULA POR V A ORAL TODOS LOS D 5 Active Ventolin HFA 108 (90 Base) MCG/ACT inhaler 2 PUFF ORALLY EVERY 6 HOURS NEEDED FOR SHORTNESS OF BREATH OR WHEEZING 5 Active proMETHAZINE-de xtromethorphan (proMETHAZINE-D M) 6.25-15 MG/5ML syrup Take 5 mL by mouth every 4 (four) hours as needed for cough. 120 mL 5 Active Encounters Date Type Department Care Team Description 02/16/2025 2:09 PM EDT - 02/16/2025 7:08 PM EDT Emergency [facility] Emergency Department [address] [place] [address] Richar Asencio MD SVT (supraventricular tachycardia) (Primary Dx) Discharge Disposition: Home or Self Care 01/24/2025 11:51 AM EDT - 01/24/2025 1:11 PM EDT Emergency [facility] Emergency Department [address] [place] [id number] Clari Faust MD Strep pharyngitis (Primary Dx); Cellulitis of right leg without foot; Upper respiratory infection Discharge Disposition: Home or Self Care from Last 3 Months Immunizations Immunization Administration Dates Next Due Tdap 10/15/2022 Social History Tobacco Use Types Packs/Day Years Used Date Smoking Tobacco: Every Day Cigarettes Alcohol Use Standard Drinks/Week Comments Yes 0 (1 standard drink = 0.6 oz pur e alcohol) social Comments No Sex and Gender Information Value Date Recorded Sex Assigned at Female 02/17/2023 10:24 AM EDT Legal Sex Female 6:34 PM EST Gender Identity Female 02/17/2023 10:24 AM EDT Sexual Orientation Heterosexual (straight) 02/17 10:24 AM EDT Last Filed Vital Signs Vital Sign Reading Time Taken Comments Blood Pressure 132/62 02/16/2025 6:56 PM EDT Pulse 81 02/16/2025 6:56 PM EDT Temperature 36.8 C (98.2 F) 02/16/2025 6:56 PM EDT Respiratory Rate 16 02/16/2025 6:56 PM EDT Oxygen Saturation 99% 02/16/2025 6:56 PM EDT Inhaled Oxygen Concentration - - Weight 96.4 kg (212 lb 8.4 oz) 02/16/2025 2:13 P M EDT Height 157.5 cm (5' 2 ) 02/16/2025 2:13 PM EDT Body Mass Index 38.87 02/16/2025 2:13 PM EDT Plan of Treatment Health Maintenance Due Date Last Done Comments Hepatitis C Virus Screening 1961 HIV Screening 1974 Pneumococcal Vaccines 50+ (1 of 2 - PCV) 1980 Pap Smear (Ages 21-65) 1982 Mammogram 2001 Colonoscopy 2006 RSV Vaccine 50 years and older and Patients (1 - Risk 50-74 years 1-dose series) 12/14/2011 Zoster (Shingles) Vaccine (1 of 2) 12/14/2011 Influenza Vaccine 12/21/2024 01/31/2024, , 03/19/2013, Additional history exists COVID-19 Vaccine ( season) 2025 03/09/2022, 05/27/2021, 10/23/2020, Additional history exists DTaP/Tdap/Td Vaccines (2 - Td or Tdap) 10/15/2032 10/15/2022 Hepatitis B Vaccines Aged Out No long er eligible based on patient's age to complete this topic Procedures Procedure Name Priority Date/Time Associated Diagnosis Comments URINALYSIS WITH REFLEX TO MICROSCOPIC AND CULTURE STAT 02/16/2025 5:35 PM EDT CTA CHEST FOR P.E. STAT 02/16/2025 5: 30 PM EDT XR CHEST 1 VIEW-PORTABLE STAT 02/16/2025 3:10 PM EDT ECG 12-LEAD STAT 02/16/2025 2:29 PM EDT MAGNESIUM STAT 02/16/2025 2:24 PM EDT TROPONIN I, HIGH SENSITIVITY STAT 02/16/2025 2:24 PM EDT COMPREHENSIVE METABOLIC PANEL STAT 02/16/2025 2:24 PM EDT COMPLETE BLOOD COUNT, WITH DIFFERENTIAL STAT 02/16/2025 2:24 PM EDT ECG 12-LEAD ED Critical 02/16/2025 2:04 PM EDT COVID-19 (SARS-COV-2), [facility] (IN-HOUSE) STAT 01/24/2025 12:03 PM EDT STREPTOCOCCUS GROUP A (GAS) [place], THROAT ONLY STAT 01/24/2025 12:03 PM EDT from Last 3 Months Results * Urinalysis with Reflex to Microscopic and Culture (02/16/2025 5:35 PM EDT) Color Yellow 02/16/2025 6:16 PM EDT [facility] Clarity Clear 02/16/2025 6:16 PM EDT [facility] Specific [place] <1.006 1.005 - 1.030 02/16/2025 6:16 PM EDT [facility] pH 7.0 5.0 - 8.0 02/16/2025 6:16 PM EDT [facility] Leukocyte Esterase Negative Negative 02/16/2025 6:16 PM EDT [facility] Nitrite Negative Negative 02/16/2025 6:16 PM EDT [facility] Protein Negative Negative mg/dL 02/16/2025 6:16 PM EDT [facility] Glucose Negative Negative mg/dL 02/16/2025 6:16 PM EDT [facility] Ketones Negative Negative mg/dL 02/16/2025 6:16 PM EDT [facility] Blood Negative Negative 02/16/2025 6:16 PM EDT [facility] Bilirubin Negative Negative 02/16/2025 6:16 PM EDT [facility] Urine Urine specimen obtained by clean catch procedure / Unknown 02/16/2025 5:35 PM EDT 02/16/2025 6:00 PM EDT us Richar Asencio MD URINE ORDERABLES Final Result Performing Organization Address City/State/[facility] Co de Phone Number [facility] [address] [place] [address], [place] * CTA Chest for P.E. (02/16/2025 5:30 PM EDT) Anatomical Region Laterality Modality Chest Computed Tomogra phy Impressions 02/16/2025 6:[address] evidence of pulmonary thromboembolism or other acute intrathoracic pathology. Narrative 02/16/2025 6:[address] angiogram of the chest. February 16, 2025 1722 hours Clinical History: [employer] Note Technique: Helical axial sections with sagittal and coronal reformats of the chest were obtained with intravenous contrast. Iterative reconstruction technique was employed to reduce patient radiation exposure. 3D/MIP reconstructed images were also provided. MIPS Quality Measures: Any pulmonary or thyroid nodule, adrenal lesion or renal cyst without follow-up recommendations requires no further imaging per consensus guidelines. Classification and recommendations for follow up of pulmonary nodules and pancreatic cysts are based on Fleischner Society or ACR guidelines. Radiation Dose: Total exam DLP 286mGy/cm. Comparison: No prior study is available for comparison. Findings: There is no filling defect within the pulmonary artery divisions to suggest pulmonary thromboembolism. The mediastinum demonstrates no evidence of mass or lymphadenopathy. The thoracic aorta is unremarkable. There is no pericardial effusion. Bibasilar dependent atelectasis is present. No evidence of pleural effusion or pneumothorax. The osseous structures are unremarkable. The visualized upper abdominal viscera are unremarkable. Procedure Note Srinivas Ledbetter MD - 02/16/2025 CT angiogram of the chest. February 16, 2025 1722 hours Clinical History: [facility] [employer] Note Technique: Helical axial sections with sagittal and coronal reformats ofthe chest were obtained with intravenous contrast. Iterativereconstruction technique was employed to reduce patient radiationexposure. 3D/MIP reconstructed images were also provided. MIPS Quality Measures: Any pulmonary or thyroid nodule, adrenal lesion orrenal cyst without follow-up recommendations requires no further imagingper consensus guidelines. Classification and recommendations for follow upof pulmonary nodules and pancreatic cysts are based on Fleischner Society or ACR guidelines. Radiation Dose: Total exam DLP 286mGy/cm. Comparison: No prior study is available for comparison. Findings: There is no filling defect within the pulmonary artery divisions tosuggest pulmonary thromboembolism. The mediastinum demonstrates noevidence of mass or lymphadenopathy. The thoracic aorta is unremarkable.There is no pericardial effusion. Bibasilar dependent atelectasis is present. No evidence of pleuraleffusion or pneumothorax. The osseous structures are unremarkable. The visualized upper abdominal viscera are unremarkable. IMPRESSION: No CT evidence of pulmonary thromboembolism or other acute intrathoracicpathology. us Richar Asencio MD IMGwen CT ORDERABLES Final Resul t * XR Chest 1 view-Portable (02/16/2025 3:10 PM EDT) Anatomical Region Laterality Modality Chest Digital Radiogra phy 02/16/2025 3:12 PM EDT Impressions 02/16/2025 3:13 PM EDT 1.2 cm right lower lobe nodular opacity is nonspecific. Recommend chest CT for further evaluation. Narrative 02/16/2025 3:13 PM EDT CLINICAL INFORMATION: New onset likely SVT COMPARISON: 01/07/2018 TECHNIQUE: AP view of the chest. FINDINGS: Heart/Mediastinum: Normal heart size. Unremarkable mediastinum. Lungs: Nodular opacity projected over the right lung base measuring 1.2 cm, not well evaluated. Consider CT chest for further evaluation. No acute infiltrate. No effusions. Osseous Structures: No acute abnormalities. Procedure Note Edward Salas MD - 02/16/2025 CLINICAL INFORMATION: New onset likely SVT COMPARISON: 01/07/2018 TECHNIQUE: AP view of the chest. FINDINGS: Heart/Mediastinum: Normal heart size. Unremarkable mediastinum. Lungs: Nodular opacity projected over the right lung base measuring 1.2cm, not well evaluated. Consider CT chest for further evaluation. No acuteinfiltrate. No effusions. Osseous Structures: No acute abnormalities. IMPRESSION: 1.2 cm right lower lobe nodular opacity is nonspecific. Recommend chest CTfor further evaluation. Richar Asencio MD IMG DIAGNOSTIC IMAGING ORDERA BLES Final Result * ECG 12 lead (02/16/2025 2:29 PM EDT) Only the most recent of2 resultswithin the time period is included. Ventricular rate 89 BPM EKG [facility] Atrial rate 89 BPM EKG [facility] P-R interval 142 ms EKG [facility] QRS duration 66 ms EKG [facility] Q-T interval 356 ms EKG [facility] QTC calculation (Bazett) 434 ms EKG [facility] P axis 55 degrees EKG [facility] R axis 19 degrees EKG [facility] T axis 27 degrees EKG [facility] 02/16/2025 2:29 PM EDT Narrative EKG [facility] - 02/17/2025 8:15 AM EDT Normal sinus rhythm Normal ECG Confirmed by MD Hines Gregory ([id number]) on 02/17/2025 8:15:37 AM Procedure Note Juan Hines MD - 02/17/2025 Normal sinus rhythm Normal ECG Confirmed by MD Hines Gregory ([id number]) on 02/17/2025 8:15:37 AM us Richar Asencio MD ECG ORDERABLES Final Result EKG [facility] * Troponin I, High Sensitivity (Now and in 1 hour) (02/16/2025 2:24 PM EDT) Pathologist [facility] Troponin I, High Sensitivity 5 <34 ng/L 02/16/2025 3:09 PM EDT [facility] Delta (HS Troponin I) NO PREVIOUS RESULT 02/16/2025 3:09 PM EDT [facility] Blood Blood specimen / Unknown 02/16/2025 2:24 PM EDT 02/16/2025 2:42 PM EDT us Richar Asencio MD LAB BLOOD ORDERABLES Final Re sult [facility] [address] [place] [address], * Complete Blood Count, with Differential (02/16/2025 2:24 PM EDT) Pathologist [facility] White Blood Cell Count 10.9 4.0 - 11.0 Thou/uL 02/16/2025 2:48 PM EDT [facility] Platelet Count 360 150 - 450 Thou/uL 02/16/2025 2:48 PM EDT [facility] Hemoglobin 13.3 11.7 - 15.7 g/dL 02/16/2025 2:48 PM EDT [facility] Hematocrit 40.2 35.0 - 47.0 % 02/16/2025 2:48 PM EDT [facility] Red Blood Cell Count 4.60 4.00 - 5.40 Mil/uL 02/16/2025 2:48 PM EDT [facility] MCV 87 80 - 100 fL 02/16/2025 2:48 PM EDT [facility] MCH 28.9 27.0 - 31.0 pg 02/16/2025 2:48 PM EDT [facility] MCHC 33.1 30.0 - 36.0 g/dL 02/16/2025 2:48 PM EDT [facility] RDW 12.7 11.5 - 14.5 % 02/16/2025 2:48 PM EDT [facility] MPV 10.0 7.5 - 12.5 fL 02/16/2025 2:48 PM EDT [facility] Neutrophils Auto 52.3 % 02/17/20 2:48 PM EDT [facility] Immature Granulocytes 0.4 % 02/16/2025 2:48 PM EDT [facility] Lymphocytes Auto 37.8 % 02/17/20 2:48 PM EDT [facility] Monocytes Auto 7.7 % 02/16/2025 2:48 PM EDT [facility] Eosinophils Auto 1.4 % 02/17/20 2:48 PM EDT [facility] Basophils Auto 0.4 % 02/16/2025 2:48 PM EDT [facility] Abs Neutrophils Auto 5.70 2.00 - 7.50 Thou/uL 02/16/2025 2:48 PM EDT [facility] Abs Immature Granulocytes 0.04 0.00 - 0.10 Thou/uL 02/16/2025 2:48 PM EDT [facility] Abs Lymphocytes Auto 4.11 1.50 - 4.50 Thou/uL 02/16/2025 2:48 PM EDT [facility] Abs Monocytes Auto 0.84 0.20 - 1.50 Thou/uL 02/16/2025 2:48 PM EDT [facility] Abs Eosinophils Auto 0.15 0.00 - 0.70 Thou/uL 02/16/2025 2:48 PM EDT [facility] Abs Basophils Auto 0.04 0.00 - 0.20 Thou/uL 02/16/2025 2:48 PM EDT [facility] Blood Blood specimen / Unknown 02/16/2025 2:24 PM EDT 02/16/2025 2:42 PM EDT Richar Asencio MD LAB BLOOD [place] [address], [place] * Magnesium (02/16/2025 2:24 PM EDT) Magnesium 1.8 1.6 - 2.6 mg/dL 02/16/2025 3:10 PM EDT [facility] Blood Blood specimen / Unknown 02/16/2025 2:24 PM EDT 02/16/2025 2:42 PM EDT Richar Asencio MD LAB BLOOD ORDERABLES Final Re sult Performing Organization Address City/[facility]/[place] [address], [place] * (ABNORMAL) Comprehensive Metabolic Panel (02/16/2025 2:24 PM EDT) Glucose 146(H) 74 - 106 mg/dL 02/16/2025 3:10 PM EDT [facility] Comment:Fasting: <100 mg/dL, Non-Fasting: <200 mg/dL (ADA 2005) Blood Urea Nitrogen (BUN) 11 9 - 23 mg/dL 02/16/2025 3:10 PM EDT [facility] Creatinine 0.91 0.60 - 1.00 mg/dL 02/16/2025 3:10 PM EDT [facility] eGFR 71 >59 02/16/2025 3:10 PM EDT [facility] Comment:CKD-EPI (2020) in mL /min/1.73 sq meters. Sodium 138 136 - 145 mmol/L 02/16/2025 3:10 PM EDT [facility] Potassium 3.6 3.4 - 4.5 mmol/L 02/16/2025 3:10 PM EDT [facility] Chloride 99 98 - 107 mmol/L 02/16/2025 3:10 PM EDT [facility] CO2 26 20 - 31 mmol/L 02/16/2025 3:10 PM EDT [facility] Calcium 9.8 8.7 - 10.5 mg/dL 02/16/2025 3:10 PM EDT [facility] Alkaline Phosphatase 96 32 - 122 U/L 02/16/2025 3:10 PM EDT [facility] Aspartate Aminotrans (AST) 23 <34 U/L 02/16/2025 3:10 PM EDT [facility] Alanine Aminotrans (ALT) 17 7 - 35 U/L 02/16/2025 3:10 PM EDT [facility] Bilirubin, Total 0.3 0.3 - 1.2 mg/dL 02/16/2025 3:10 PM EDT [facility] Protein, Total 8.0 5.7 - 8.2 g/dL 02/16/2025 3:10 PM EDT [facility] Albumin 4.7 3.4 - 4.8 g/dL 02/16/2025 3:10 PM EDT [facility] BUN/Creatinine Ratio 12 10.0 - 25.0 Ratio 02/16/2025 3:10 PM EDT [facility] Globulin 3.3 1.5 - 3.9 g/dL 02/16/2025 3:10 PM EDT [facility] Albumin/Globulin Ratio 1.4(L) 1.5 - 2.5 Ratio 02/16/2025 3:10 PM EDT [facility] Anion Gap 12 5 - 15 02/16/2025 3:10 PM EDT [facility] Blood Blood specimen / Unknown 02/16/2025 2:24 PM EDT 02/16/2025 2:42 PM EDT us Richar Asencio MD LAB BLOOD ORDERABLES Final Re sult [facility] [address] [place] [address], * COVID-19 (SARS-COV-2), [facility] (IN-HOUSE) (01/24/2025 12:03 PM EDT) Source Nasopharynx 01/24/2025 12:03 PM EDT [facility] Comment:Swab, Nasopharyngeal SARS CoV 2 Not Detected Not Detected 01/24/2025 1:04 PM EDT [facility] Comment: Negative results do not preclude SARS-CoV-2 (COVID-19)infection and should not be used as the sole basis for treatment or other patient management decisions. The SARS-CoV-2 (Covid-19) Nucleic Acid Amplification Assay is limited to laboratories certified under the Clinical Laboratory Improvement Amendments of 1988 (CLIA), 42 U.S.C. 263a, to perform high complexity tests. Nucleic acid amplification tests include RT-PCR and TMA. This assay has not been FDA cleared or approved, however, this assay has been authorized by the Food and Drug Administration (FDA) under an Emergency Use Authorization (EUA). Validation was completed and performance characteristics established by [facility] as per the FDA and CLIA requirement for this EUA. The Xpert Xpress CoV-2 plus Letter of Authorization, along with the authorized Fact Sheet for Healthcare Providers, the authorized Fact Sheet for Patients and authorized labeling are available on the FDA website: https://www.fda.gov/medical-devices/tgylaqfuegq-livlwid-9914-eliid-61-zvoioroew- use-a jjnflszshwqar-khexhaw-orghsfx/ql-elfvm-tykfwsfkuhq-euas Swab, Nasopharyngeal Nasopharyngeal swab / Unknown 01/24/2025 12:03 PM EDT 01/24/2025 12:22 PM EDT us Clari Faust MD MICROBIOLOGY - GENERAL ORDER CHERELLE Final Result Performing Organization Address City/[facility] Co de Phone Number [facility] [address] [place] [phone], * (ABNORMAL) Streptococcus Group A (GAS) [facility], Throat Only (01/24/2025 12:03 PM EDT) Strep A DNA Amplification Detected( A) Not Detected 01/24/2025 1:49 PM EDT [facility] Swab, Throat (Oropharynx) 01/24/2025 12:03 PM EDT 01/24/2025 12:21 PM EDT us Clari Faust MD MICROBIOLOGY - GENERAL ORDER CHERELLE Final Result Performing Organization Address [facility] [place] [address], from Last 3 Months Insurance MEDICAID OUT OF STATE [facility] Care Teams Reformatory Attendant Relationship Specialty Start Date End Date System, Provider Not In PCP - General 10/15/22
== END 2025-04-24 12:04 | disposition home or self-care (01) ==
LOC: HO.HGI 10:38
PROVIDERS: PCP Internal Medicine; Visit Provider Nurse Practitioner Family
DX: Z86.0100 Personal history of colon polyps, unspecified (principal); K21.9 Gastro-esophageal reflux disease without esophagitis; K63.5 Polyp of colon; K57.30 Diverticulosis of large intestine without perforation or abscess without bleeding
CPT/HCPCS: 99214

== ENCOUNTER → 2025-04-24 10:37 | Outpatient (BNVA) | payer OTHER, SELFPAY | PROVIDERS: PCP Internal Medicine; Visit Provider Nurse Practitioner Family | DX: Z12.11 Encounter for screening for malignant neoplasm of colon (principal); K21.9 Gastro-esophageal reflux disease without esophagitis; K63.5 Polyp of colon; K57.30 Diverticulosis of large intestine without perforation or abscess without bleeding | CPT/HCPCS: 99212 ==